=== PATIENT | male | born 1950 | race Caucasian/White ===

== ENCOUNTER 2017-11-05 15:25 | Inpatient (IN) | payer MEDICARE ==
[~2017-11-05] VITALS: Ht 175.3 cm; Wt 131.4 kg
[~2017-11-05 15:25] MED LIST: ATEN1TAB74 PO; ATRO0.06; BENZ1CAP34 PO; CIPR0.3S EACH EAR; FLUT50SP EACH NARE; GLUC10TA3 PO; HYDRO2.5%T TOP; LEVO.2 PO; LOSA100T PO; PRED20 PO; PROT40TA PO; TAMS0.4C67 PO
[2017-11-05 15:29] VITALS: BP 193/93; PULSE 82; RESP 16; TEMP 97.8; O2SAT 97
--- NOTE | 2017-11-05 16:19 | RADRPT ---
EXAM DATE/TIME: 11/05/2017 15:46 [facility] COMPARISON: No previous studies available for comparison. INDICATIONS : Chest pain, possible CVA. MEDICAL HISTORY : None. SURGICAL HISTORY : None. ENCOUNTER: Initial ACUITY: 1 day PAIN SCORE: 2/10 LOCATION: middle chest. FINDINGS: A single view of the chest demonstrates the lungs to be symmetrically aerated without evidence of mas s, infiltrate or effusion. The cardiomediastinal contours are unremarkable. Osseous structures are intact. CONCLUSION: No acute disease. Nabil Ellis MD FACR on November 05, 2017 at 16:17 Board Certified Radiologist. This report was verified electronically.
[2017-11-05 16:36] VITALS: BP 174/112; PULSE 76; RESP 18; O2SAT 97
[2017-11-05] MEDS ORDERED: CLON.5 PO (16:55)
[2017-11-05] MEDS ORDERED: INSU1INJ5 SQ (16:55)
[2017-11-05] MEDS ORDERED: ATEN1TAB73 PO (16:55)
[2017-11-05] MEDS ORDERED: LEVO175T2 PO (16:55)
[2017-11-05] MEDS ORDERED: TRAM50TA PO (16:55)
[2017-11-05] MEDS ORDERED: COZA100T PO (16:55)
--- NOTE | 2017-11-05 17:03 | PD ---
HPI . Strokelike symptoms Chief Complaint: Neuro Symptoms/ Deficits Time Seen by Provider: 16:43 Travel History International Travel<30 days: No Contact w/Intl Traveler<30days: No Traveled to known affect area: No History of Present Illness HPI This patient presents with a chief complaint of dysarthria and right-sided weakness. Onset was on awakening at 8 AM yesterday. He states that his symptoms are getting progressively worse. He was seen at an OSH at approximately 3 AM this morning. This would have been about 19 hours after the onset of symptoms. He states that he had a CT scan of the head that was negative. He states that the aspirin prior to his presentation to that facility. He states that they gave him a blood pressure medication. He eventually left there AMA. He did present to his primary care physician's office after leaving AMA and was found to be in atrial fibrillation. His primary care physician instructed him to come here for further evaluation, treatment and admission. This patient reports a history of atrial fibrillation. He states that he was successfully ablated and is no longer on an anticoagulant. PFSH Past Medical History Arthritis: Yes Asthma: No Atrial Fibrillation: Yes Autoimmune Disease: No Anxiety: Yes Cancer: Yes Cardiovascular Problems: Yes (A-fib) High Cholesterol: Yes Chest Pain: Yes COPD: No Cerebrovascular Accident: No Diabetes: Yes Patient Takes Glucophage: No Diminished Hearing: No Diverticulitis: Yes Endocrine: Yes (FATTY LIVER) Gastrointestinal Disorders: Yes (GERD) GERD: Yes Genitourinary: Yes (POLYPS, ) Headaches: No Hepatitis: No Hiatal Hernia: No Hypertension: Yes Immune Disorder: No Musculoskeletal: Yes (BILATERAL SHOULDER PAIN, ARTHRITIS) Neurologic: No Reproductive: Yes (ENLARGED PROSTATE) Respiratory: Yes (COPD) Radiation Therapy: Yes (THYROID) Seizures: No Sleep Apnea: Yes Thyroid Disease: Yes (GRAVES DISEASE) Past Surgical History Abdominal Surgery: Yes (BOWEL RESECTION) AICD: No Body Medical Devices: HARDWARE IN NECK Cardiac Surgery: Yes (ABLATION X 2) Endocrine Surgery: Yes Genitourinary Surgery: Yes Joint Replacement: No Neurologic Surgery: Yes (NECK FUSION C 3-4,DISCECTOMY L 6-7) Pacemaker: No Other Surgery: Yes (SINUSES) Social History Alcohol Use: Yes (2-3 GLASSES DAILY) Tobacco Use: No Substance Use: No Allergies-Medications (Allergen,Severity, Reaction): Coded Allergies: amlodipine (Unverified Allergy, Severe, COUGH, 11/05/17) benazepril (Unverified Allergy, Severe, PT ALLERGIC TO LOTREL, 11/05/17) doxycycline (Unverified Allergy, Severe, Hives, 11/05/17) lactose (Unverified Allergy, Severe, PT IS LACTOSE INTOLERANT, 11/05/17) minocycline (Unverified Allergy, Severe, Hives, 11/05/17) tigecycline (Unverified Allergy, Severe, Hives, 11/05/17) Reported Meds & Prescriptions Reported Meds & Active Scripts Active Reported Levothyroxine (Levothyroxine Sodium) 175 Mcg Tab 175 Mcg PO DAILY Klonopin (Clonazepam) 0.5 Mg Tab 0.5 Mg PO DAILY PRN Levemir Flextouch Pen Inj (Insulin Detemir) 300 unit/3 ML Pen 18 Units SQ BID Tenormin (Atenolol) 25 Mg Tab 25 Mg PO DAILY Cozaar (Losartan Potassium) 100 Mg Tab 100 Mg PO DAILY Tramadol (Tramadol HCl) 50 Mg Tab 50-100 Mg PO Q6H PRN Review of Systems Except as stated in HPI: all other systems reviewed are Neg Eyes: No: Blurred Vision HENT: No: Headaches Neurologic: Positive: Weakness, Focal Abnormalities, Slurred Speech Physical Exam Narrative GENERAL: Patient is awake and alert and does not appear to be in any distress. SKIN: warm/dry. Normal color. HEAD: Normocephalic. Atraumatic. EYES: Pupils equal and round. No scleral icterus. No injection or drainage. ENT: No nasal bleeding or discharge. Mucous membranes pink and moist. NECK: Trachea midline. Full range of motion without pain.. CARDIOVASCULAR: Irregular rhythm with a controlled rate. RESPIRATORY: No accessory muscle use. Clear to auscultation. Breath sounds equal bilaterally. GASTROINTESTINAL: Abdomen soft. Nontender. Bowel sounds present. Nondistended. MUSCULOSKELETAL: No obvious deformities. NEUROLOGICAL: Awake and alert. Oriented 3. No obvious cranial nerve deficits. Motor grossly within normal limits. Speech is difficult to understand. PSYCHIATRIC: Appropriate mood and affect; insight and judgment normal. Data Data Last Documented VS Vital Signs Date Time Temp Pulse Resp B/P (MAP) Pulse Ox O2 Delivery O2 Flow Rate FiO2 11/05/17 16:36 76 18 174/112 (132) 97 Room Air 11/05/17 15:29 97.8 Orders Orders Electrocardiogram (11/05/17 15:33) Prothrombin Time / Inr (Pt) (11/05/17 15:33) Act Partial Throm Time (Ptt) (11/05/17 15:33) Complete Blood Count With Diff (11/05/17 15:33) Comprehensive Metabolic Panel (11/05/17 15:33) Creatine Kinase (Cpk) (11/05/17 15:33) Troponin I (11/05/17 15:33) Urinalysis - C+S If Indicated (11/05/17 15:33) Ct Brain W/O Iv Contrast(Rout) (11/05/17 15:33) Chest, Single Ap (11/05/17 15:33) Consult Neurology (11/05/17 ) Urine Culture (11/05/17 16:35) Apixaban (Eliquis) (11/05/17 17:30) (Hub Use Only)Inp Phy Cons/Ref (11/05/17 ) Admit Order (Ed Use Only) (11/05/17 17:50) Labs Laboratory Tests Test 11/05/17 16:35 11/05/17 16:53 Urine Color YELLOW Urine Turbidity CLEAR Urine pH 5.5 Urine Specific [place] 1.018 Urine Protein 30 mg/dL Urine Glucose (UA) 1000 mg/dL Urine Ketones NEG mg/dL Urine Occult Blood NEG Urine Nitrite NEG Urine Bilirubin NEG Urine Urobilinogen LESS THAN 2.0 MG/DL Urine Leukocyte Esterase NEG Urine WBC 3 /hpf Urine Squamous Epithelial Cells 1 /hpf Urine Bacteria OCC /hpf Urine Hyaline Casts 1 /lpf Urine Mucus FEW /lpf Urine Sperm RARE Microscopic Urinalysis Comment CATH-CULTURE IND White Blood Count 7.3 TH/MM3 Red Blood Count 4.95 MIL/MM3 Hemoglobin 16.0 GM/DL Hematocrit 45.6 % Mean Corpuscular Volume 92.0 FL Mean Corpuscular Hemoglobin 32.3 PG Mean Corpuscular Hemoglobin Concent 35.1 % Red Cell Distribution Width 15.4 % Platelet Count 229 TH/MM3 Mean Platelet Volume 8.6 FL Neutrophils (%) (Auto) 76.2 % Lymphocytes (%) (Auto) 14.6 % Monocytes (%) (Auto) 6.9 % Eosinophils (%) (Auto) 1.8 % Basophils (%) (Auto) 0.5 % Neutrophils # (Auto) 5.6 TH/MM3 Lymphocytes # (Auto) 1.1 TH/MM3 Monocytes # (Auto) 0.5 TH/MM3 Eosinophils # (Auto) 0.1 TH/MM3 Basophils # (Auto) 0.0 TH/MM3 CBC Comment DIFF FINAL Differential Comment Prothrombin Time 10.3 SEC Prothromb Time International Ratio 1.0 RATIO Activated Partial Thromboplast Time 25.3 SEC Blood Urea Nitrogen 20 MG/DL Creatinine 1.54 MG/DL Random Glucose 254 MG/DL Total Protein 7.9 GM/DL Albumin 4.1 GM/DL Calcium Level 9.2 MG/DL Alkaline Phosphatase 125 U/L Aspartate Amino Transf (AST/SGOT) 27 U/L Alanine Aminotransferase (ALT/SGPT) 44 U/L Total Bilirubin 1.1 MG/DL Sodium Level 138 MEQ/L Potassium Level 3.9 MEQ/L Chloride Level 102 MEQ/L Carbon Dioxide Level 26.8 MEQ/L Anion Gap 9 MEQ/L Estimat Glomerular Filtration Rate 45 ML/MIN Total Creatine Kinase 147 U/L Troponin I LESS THAN 0.02 NG/ML MDM Medical Decision Making Medical Screen Exam Complete: Yes Emergency Medical Condition: Yes Medical Record Reviewed: Yes (medical history includes HTN, BPH, AF, hypothyroidism, MAGUI) Interpretation(s) EKG shows atrial fibrillation with a ventricular rate of 79. He has a right bundle-branch block. Differential Diagnosis Differential diagnosis includes but is not limited to TIA, CVA, brain tumor, migraine, anxiety Narrative Course This patient presents with strokelike symptoms. Onset was > 36 hours ago. He is in atrial fibrillation. He needs to be anticoagulated for his atrial fibrillation. I will order another CT here to rule out bleed in his head prior to initiating anticoagulation. CBC & BMP Diagram 11/05/17 16:53 Total Protein 7.9, Albumin 4.1, Calcium Level 9.2, Alkaline Phosphatase 125 H, Aspartate Amino Transf (AST/SGOT) 27, Alanine Aminotransferase (ALT/SGPT) 44, Total Bilirubin 1.1 H Coags are normal. Last Impressions Head CT 11/05/17 [id number] Signed Impressions: Service Date/Time: Sunday, November 05, 2017 16:47 - CONCLUSION: Moderate basalganglia calcifications, nonspecific Otherwise negative for acute process. Nabil Ellis MD FACR Chest X-Ray 11/05/17 1533 Signed Impressions: Service Date/Time: Sunday, November 05, 2017 15:46 - CONCLUSION: No acute disease. Nabil Ellis MD FACR I have received his records from the outside hospital. He was evaluated there 20 hours after the onset of his symptoms. Admission was recommended but refused. He subsequently signed out AMA and was instructed primary care physician, Dr. Bailey. Critical Care Narrative Aggregate critical care time was 45 minutes. Time to perform other separately billable procedures was not included in the critical care time. My time did not include minutes spent treating any other patients simultaneously or on activities that did not directly contribute to the patient's treatment. The services I provided to this patient were to treat and/or prevent clinically significant deterioration due to AF and stroke. I provided critical care services requiring my management, as noted below: Chart data review, documentation time, medication orders and management, vital sign assessments/reviewing monitor data, ordering and reviewing lab tests, ordering and interpreting/reviewing x-rays and diagnostic studies, care of the patient and discussion of the patient with the admitting physicians Physician Communication Physician Communication Dr. Ibanez recommended Eliquis for anticoagulation. This has been ordered. Dr. Whyte will admit for Dr. Feldman. Diagnosis Primary Impression: Stroke Qualified Codes: I63.9 - Cerebral infarction, unspecified Additional Impression: Atrial fibrillation Qualified Codes: I48.0 - Paroxysmal atrial fibrillation Admitting Information Admitting Physician Requests: Admit Condition: Stable Kajal Cardoso MD Nov 05, 2017 17:03
--- NOTE | 2017-11-05 17:18 | RADRPT ---
EXAM DATE/TIME: 11/05/2017 16:47 [facility] COMPARISON: No previous studies available for comparison. \ INDICATIONS : Right sided weakness for two days. RADIATION DOSE: 56.35 CTDIvol (mGy) MEDICAL HISTORY : Carcinoma, thyroid. Hypertension. diabetes, grave's disease SURGICAL HISTORY : None. ENCOUNTER: Initial ACUITY: 2 days PAIN SCALE: 2/10 LOCATION: Bilateral head TECHNIQUE: Multiple contiguous axial images were obtained of the head. Using automated exposure control and adj ustment of the mA and/or kV according to patient size, radiation dose was kept as low as reasonably a chievable to obtain optimal diagnostic quality images. DICOM format image data is available electro nically for review and comparison. FINDINGS: CEREBRUM: The ventricles are normal for age. No evidence of midline shift, mass lesion, hemorrhage or acute in farction. No extra-axial fluid collections are seen. Moderate basalganglia calcifications are evide nt. POSTERIOR FOSSA: The cerebellum and brainstem are intact. The 4th ventricle is midline. The cerebellopontine angle i s unremarkable. EXTRACRANIAL: The visualized portion of the orbits is intact. SKULL: The calvaria is intact. No evidence of skull fracture. CONCLUSION: Moderate basalganglia calcifications, nonspecific Otherwise negative for acute process. Nabil Ellis MD FACR on November 05, 2017 at 17:14 Board Certified Radiologist. This report was verified electronically.
[2017-11-05 17:26] LABS: AUTOMATED NEUTROPHIL # 5.6 TH/MM3 (1.8-7.7); BASOPHIL % 0.5 % (0.0-2.0); EOSINOPHIL # 0.1 TH/MM3 (0-0.4); EOSINOPHIL % 1.8 % (0.0-4.0); HEMATOCRIT 45.6 % (39.0-51.0); HEMO FLAGS DIFF FINAL; LYMPH % 14.6 % (9.0-44.0); LYMPHOCYTE # 1.1 TH/MM3 (1.0-4.8); MEAN CORPUSCULAR HEMOGLOBIN 32.3 PG (27.0-34.0); MEAN CORPUSCULAR HGB CONC 35.1 % (32.0-36.0); MONO % 6.9 % (0.0-8.0); NEUT % 76.2 % (16.0-70.0); PLATELET COUNT 229 TH/MM3 (150-450); RED BLOOD COUNT 4.95 MIL/MM3 (4.50-5.90); RED CELL DISTRIBUTION WIDTH 15.4 % (11.6-17.2); WHITE BLOOD COUNT 7.3 TH/MM3 (4.0-11.0)
[2017-11-05 17:29] LABS: BACTERIA, URINE OCC /hpf; BLOOD, URINE NEG (NEG); COMMENT (UR) CATH-CULTURE IND; CULTURE IF INDICATED CATH CULTURE IND; GLUCOSE,URINE 1000 mg/dL (NEG); HYALINE CAST, URINE 1 /lpf (RARE); KETONE, URINE NEG (NEG); MUCUS URINE FEW /lpf (OCC); NITRITE,URINE NEG (NEG); PH, URINE 5.5 (5.0-8.5); SQUAMOUS EPITHELIAL CELL URINE 1 /hpf (0-5); URINE COLOR YELLOW (YELLW/STRAW)
[2017-11-05 17:29] LABS: APTT (PATIENT) 25.3 SEC (24.3-30.1); PROTHROMBIN TIME - PATIENT 10.3 SEC (9.8-11.6)
[2017-11-05] MEDS ORDERED: APIXABAN 5 MG TABLET PO SCH (17:30)
[2017-11-05 17:34] LABS: ALT (GPT) 44 U/L (12-78); ANION GAP 9 MEQ/L (5-15); AST (GOT) 27 U/L (15-37); BICARBONATE 26.8 MEQ/L (21.0-32.0); BLOOD UREA NITROGEN 20 MG/DL (7-18); CHLORIDE 102 MEQ/L (98-107); GLOMERULAR FILTRATION RATE 45 ML/MIN (>89); POTASSIUM 3.9 MEQ/L (3.5-5.1); SODIUM (NA) 138 MEQ/L (136-145)
[2017-11-05 17:38] LABS: ALKALINE PHOSPHATASE 125 U/L (45-117); CREATINE KINASE 147 U/L (39-308); TOTAL BILIRUBIN ADULT 1.1 MG/DL (0.2-1.0)
[2017-11-05] MEDS: SODIUM CHLOR 0.9% 1000 ML INJ 1,000 ML IV SCH (18:48)
[2017-11-05] MEDS: APIXABAN 5 MG TABLET PO SCH (18:50)
[2017-11-05] MEDS ORDERED: GLUCAGON 1 MG/ML VIAL OTHER PRN (19:00)
[2017-11-05] MEDS ORDERED: LABETALOL HCL 100 MG/20 ML VIAL IV PUSH PRN (19:00)
[2017-11-05] MEDS ORDERED: DEXTROSE 50% IN WATER 50 ML VIAL(D50) IV PUSH PRN (19:00)
[2017-11-05] MEDS ORDERED: SODIUM CHLORIDE 0.9% FLUSH 10 ML FLUSH IV FLUSH PRN (19:00)
[2017-11-05] MEDS ORDERED: LORazepam 2 MG/ML VIAL IV PUSH ONE (20:30)
[2017-11-05 20:57] VITALS: BP 165/96; PULSE 74; RESP 18; TEMP 97.4; O2SAT 98
[2017-11-05] MEDS: INSULIN DETEMIR 100 UNITS/ML VIAL SQ SCH (21:00)
[2017-11-05] MEDS: INSULIN ASPART SUPPLEMENTAL SCALE SQ SCH (21:00)
--- NOTE | 2017-11-05 21:01 | HHI.HP ---
HPI Service [facility] Hospitalists Primary Care Physician Non-Staff Admission Diagnosis stroke, AF Chief Complaint: possible stroke, Afib Travel History International Travel<30 Days: No Contact w/Intl Traveler <30 Da: No Traveled to Known Affected Are: No History of Present Illness 67-year-old male with history of atrial fibrillation, diabetes, hypertension, hypothyroidism presents with a chief complaint of dysarthria and right-sided weakness. Onset was on awakening at 8 AM yesterday when he noted that he was having significant gait abnormality going to the bathroom. He reportedly stayed at home yesterday and rested but wasn't getting any better. He states that his symptoms are getting progressively worse so he went to another ER around 3 AM this morning. This would have been about 19 hours after the onset of symptoms. CT scan of the head that was negative. He states that he took aspirin prior to his presentation to that facility. He states that they gave him a blood pressure medication. He eventually left there AMA as they recommended he stay for further eval. He subsequently presented to his primary care physician's office after leaving AMA and was found to be in atrial fibrillation. His primary care physician instructed him to come here for further evaluation, treatment and admission. Patient reports he had chronic atrial fibrillation and underwent cardioversion 2 with the latter being successful. He reports he never had ablation. He reports that he stopped Eliquis in approximately January of this year even though the piece dye worker told him would be a good idea to stay on it" the rest of his life as a prophylactic. He states the titus of several hundred dollars a month was too much for him. Patient notes that he still has some right-sided weakness particularly of right lower extremity and he reports that his speech is somewhat slurred or him. Review of Systems Constitutional: DENIES: Diaphoretic episodes, Fatigue, Fever, Weight gain, Weight loss, Chills, Dizziness, Change in appetite, Night Sweats Endocrine: DENIES: Heat/cold intolerance, Polydipsia, Polyuria, Polyphagia Eyes: DENIES: Blurred vision, Diplopia, Eye inflammation, Eye pain, Vision loss , Photosensitivity, Double Vision Ears, nose, mouth, throat: DENIES: Tinnitus, Hearing loss, Vertigo, Nasal discharge, Oral lesions, Throat pain, Hoarseness, Ear Pain, Running Nose, Epistaxis, Sinus Pain, Toothache, Odynophagia Respiratory: DENIES: Apneas, Cough, Snoring, Wheezing, Hemoptysis, Sputum production, Shortness of breath Cardiovascular: COMPLAINS OF: Palpitations, DENIES: Chest pain, Syncope, Dyspnea on Exertion, PND, Lower Extremity Edema, Orthopnea, Claudication Gastrointestinal: DENIES: Abdominal pain, Black stools, Bloody stools, BRB per rectum, Constipation, Diarrhea, GERD, Nausea, Reflux, Vomiting, Difficulty Swallowing, Anorexia, See HPI Musculoskeletal: COMPLAINS OF: Joint pain, Back pain Hematologic/lymphatic: COMPLAINS OF: Bruising Neurologic: COMPLAINS OF: Abnormal gait, Localized weakness, Speech Problems, Poor Balance, DENIES: Headache, Paresthesias, Seizures, Tremor Psychiatric: COMPLAINS OF: Anxiety Past Family Social History Past Medical History Anxiety, atrial fibrillation BPH COPD Diabetic nephropathy Lumbar degenerative disc disease GERD Hypertension Hyperlipidemia Hypothyroidism Obesity Postlaminectomy syndrome Psoriasis History of SVT Past Surgical History Colonic resection in 2008 for diverticulitis and colitis Incisional hernia repair Anterior cervical fusion Paravertebral nerve block Lumbar Spinal discectomy Last colonoscopy November 2014 revealed some signs of possible colitis and low- grade adenomatous polyp Reported Medications Levothyroxine (Levothyroxine Sodium) 175 Mcg Tab 175 Mcg PO DAILY Klonopin (Clonazepam) 0.5 Mg Tab 0.5 Mg PO DAILY PRN Levemir Flextouch Pen Inj (Insulin Detemir) 300 unit/3 ML Pen 18 Units SQ BID Tenormin (Atenolol) 25 Mg Tab 25 Mg PO DAILY Cozaar (Losartan Potassium) 100 Mg Tab 100 Mg PO DAILY Tramadol (Tramadol HCl) 50 Mg Tab 50-100 Mg PO Q6H PRN Ventolin inhaler 1 puff every 4 hours as needed Allergies: Coded Allergies: amlodipine (Unverified Allergy, Severe, COUGH, 11/05/17) benazepril (Unverified Allergy, Severe, PT ALLERGIC TO LOTREL, 11/05/17) doxycycline (Unverified Allergy, Severe, Hives, 11/05/17) lactose (Unverified Allergy, Severe, PT IS LACTOSE INTOLERANT, 11/05/17) minocycline (Unverified Allergy, Severe, Hives, 11/05/17) tigecycline (Unverified Allergy, Severe, Hives, 11/05/17) Family History Sister had some form of brain cancer Mother in her 80s of dementia but apparently had history of kidney cancer Father in his 80s and had apparently some dementia, possibly history of stroke but is unsure. 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 Speech is somewhat slurred but quite comprehensible. Alert and oriented. SKIN: No rashes, ecchymoses or lesions. Cool and dry. HEAD: Atraumatic. Normocephalic. No temporal or scalp tenderness. EYES: Pupils equal round and reactive. Extraocular motions intact. No scleral icterus. No injection or drainage. ENT: Nose without bleeding, purulent drainage or septal hematoma. Airway patent. NECK: Trachea midline. No JVD or lymphadenopathy. Supple, nontender, no meningeal signs. CARDIOVASCULAR: Irregularly irregular without murmurs, gallops, or rubs. RESPIRATORY: Clear to auscultation. Breath sounds equal bilaterally. No wheezes , rales, or rhonchi. GASTROINTESTINAL: Abdomen soft, non-tender, nondistended. No hepato-splenomegaly , or palpable masses. No guarding. MUSCULOSKELETAL: Extremities without clubbing, cyanosis, or edema. No joint tenderness, effusion, or edema noted. No calf tenderness. Paralumbar spasm noted. NEUROLOGICAL: Awake and alert. Cranial nerves II through XII intact. Speech somewhat slurred as noted above. It is noted that patient is left-hand dominant. 5 out of 5 strength left extremities. Right lower extremity with 4.5 out of 5 strength on flexion 5 over 5 on extension. Right upper extremity 4.5 out of 5 strength proximally. Pearl Technician 5 out of 5 bilaterally Laboratory Laboratory Tests Test 11/05/17 16:35 11/05/17 16:53 Urine Color YELLOW Urine Turbidity CLEAR Urine pH 5.5 Urine Specific [place] 1.018 Urine Protein 30 Urine Glucose (UA) 1000 Urine Ketones NEG Urine Occult Blood NEG Urine Nitrite NEG Urine Bilirubin NEG Urine Urobilinogen LESS THAN 2.0 Urine Leukocyte Esterase NEG Urine WBC 3 Urine Squamous Epithelial Cells 1 Urine Bacteria OCC Urine Hyaline Casts 1 Urine Mucus FEW Urine Sperm RARE Microscopic Urinalysis Comment CATH-CULTURE IND White Blood Count 7.3 Red Blood Count 4.95 Hemoglobin 16.0 Hematocrit 45.6 Mean Corpuscular Volume 92.0 Mean Corpuscular Hemoglobin 32.3 Mean Corpuscular Hemoglobin Concent 35.1 Red Cell Distribution Width 15.4 Platelet Count 229 Mean Platelet Volume 8.6 Neutrophils (%) (Auto) 76.2 Lymphocytes (%) (Auto) 14.6 Monocytes (%) (Auto) 6.9 Eosinophils (%) (Auto) 1.8 Basophils (%) (Auto) 0.5 Neutrophils # (Auto) 5.6 Lymphocytes # (Auto) 1.1 Monocytes # (Auto) 0.5 Eosinophils # (Auto) 0.1 Basophils # (Auto) 0.0 CBC Comment DIFF FINAL Differential Comment Prothrombin Time 10.3 Prothromb Time International Ratio 1.0 Activated Partial Thromboplast Time 25.3 Blood Urea Nitrogen 20 Creatinine 1.54 Random Glucose 254 Total Protein 7.9 Albumin 4.1 Calcium Level 9.2 Alkaline Phosphatase 125 Aspartate Amino Transf (AST/SGOT) 27 Alanine Aminotransferase (ALT/SGPT) 44 Total Bilirubin 1.1 Sodium Level 138 Potassium Level 3.9 Chloride Level 102 Carbon Dioxide Level 26.8 Anion Gap 9 Estimat Glomerular Filtration Rate 45 Total Creatine Kinase 147 Troponin I LESS THAN 0.02 Date/Time Source Procedure Growth Status 11/05/17 16:35 Urine Clean Catch Urine Culture Pending Received Result Diagram: 11/05/17 1653 11/05/17 1653 Imaging Last [address] 11/05/17 1533 Signed Impressions: Service Date/Time: Sunday, November 05, 2017 16:47 - CONCLUSION: Moderate basalganglia calcifications, nonspecific Otherwise negative for acute process. Nabil Ellis MD FACR Chest X-Ray 11/05/17 1533 Signed Impressions: Service Date/Time: Sunday, November 05, 2017 15:46 - CONCLUSION: No acute disease. Nabil Ellis MD FACR Caprini VTE Risk Assessment Caprini VTE Risk Assessment: Mod/High Risk (score >= 2) Caprini Risk Assessment Model Point Value = 1 Point Value = 2 Point Value = 3 Point Value = 5 Age 41-60 Minor surgery BMI > 25 kg/m2 Swollen legs Varicose veins or History of unexplained or recurrent spontaneous Oral contraceptives or hormone replacement Sepsis (< 1 month) Serious lung disease, including pneumonia (< 1 month) Abnormal pulmonary function Acute myocardial infarction Congestive heart failure (< 1 month) History of inflammatory bowel disease Medical patient at bed rest Age 61-74 Arthroscopic surgery Major open surgery (> 45 min) Laparoscopic surgery (> 45 min) Malignancy Confined to bed (> 72 hours) Immobilizing plaster cast Central venous access Age >= 75 History of VTE Family history of VTE Factor V Leiden Prothrombin [id number] Lupus anticoagulant Anticardiolipin antibodies Elevated serum homocysteine Heparin-induced thrombocytopenia Other congenital or acquired thrombophilia Stroke (< 1 month) Elective arthroplasty Hip, pelvis, or leg fracture Acute spinal cord injury (< 1 month) Prophylaxis Regimen Total Risk Factor Score Risk Level Prophylaxis Regimen 0-1 Low Early ambulation 2 Moderate Order ONE of the following: *Sequential Compression Device (SCD) *Heparin 5000 units SQ BID 3-4 Higher Order ONE of the following medications: *Heparin 5000 units SQ TID *Enoxaparin/Lovenox 40 mg SQ daily (WT < 150 kg, CrCl > 30 mL/min) *Enoxaparin/Lovenox 30 mg SQ daily (WT < 150 kg, CrCl > 10-29 mL/min) *Enoxaparin/Lovenox 30 mg SQ BID (WT < 150 kg, CrCl > 30 mL/min) AND/OR *Sequential Compression Device (SCD) 5 or more Highest Order ONE of the following medications: *Heparin 5000 units SQ TID (Preferred with Epidurals) *Enoxaparin/Lovenox 40 mg SQ daily (WT < 150 kg, CrCl > 30 mL/min) *Enoxaparin/Lovenox 30 mg SQ daily (WT < 150 kg, CrCl > 10-29 mL/min) *Enoxaparin/Lovenox 30 mg SQ BID (WT < 150 kg, CrCl > 30 mL/min) AND *Sequential Compression Device (SCD) Assessment and Plan Problem List: (1) Stroke ICD Codes: I63.9 - Cerebral infarction, unspecified Status: Acute Plan: Likely left MCA stroke. Patient has risk of A. fib and had stopped his anticoagulant. Eliquis has been resumed. neurology has been consult. Other imaging and workup pending. Will need some sedation prior to MRI. (2) Atrial fibrillation ICD Codes: I48.91 - Unspecified atrial fibrillation Status: Acute Plan: As above. Rate controlled. Eliquis resumed. (3) Diabetic nephropathy ICD Codes: E11.21 - Type 2 diabetes mellitus with diabetic nephropathy Plan: Has not been exactly to goal. A1c was 8.3 a few months ago. Repeat A1c. Place on sliding scale insulin. We'll provide some basal insulin as well. (4) Hypertension ICD Codes: I10 - Essential (primary) hypertension Plan: Permissive hypertension will be allowed initially with parameters. (5) Postlaminectomy syndrome ICD Codes: M96.1 - Postlaminectomy syndrome, not elsewhere classified Plan: Continue home medication (6) Hypothyroidism ICD Codes: E03.9 - Hypothyroidism, unspecified Status: Chronic Plan: Continue medication (7) Hyperlipidemia ICD Codes: E78.5 - Hyperlipidemia, unspecified Status: Chronic Plan: Would benefit from statin (8) Anxiety ICD Codes: F41.9 - Anxiety disorder, unspecified Status: Chronic Plan: Continue home medication Code Status full Discussed Condition With Patient, his nurse and ER provider Problem Qualifiers (1) Stroke: Qualified Codes: I63.9 - Cerebral infarction, unspecified (2) Atrial fibrillation: Qualified Codes: I48.0 - Paroxysmal atrial fibrillation (3) Diabetic nephropathy: Qualified Codes: E11.21 - Type 2 diabetes mellitus with diabetic nephropathy (4) Hypertension: Qualified Codes: I10 - Essential (primary) hypertension (5) Hyperlipidemia: Qualified Codes: E78.00 - Pure hypercholesterolemia, unspecified Selvin Whyte MD PhD Nov 05, 2017 21:01
--- NOTE | 2017-11-05 21:25 | MB ---
cc: PEACE RIBERA M.D. DATE OF CONSULTATION 11/05/2017 REASON FOR CONSULTATION Stroke. HISTORY OF PRESENT ILLNESS Mr. Guerrero is a very nice 67-year-old man who has a history of atrial fibrillation which he was cardioverted out of about a year ago. He was in his sinus rhythm in the past, was on Eliquis but now off Eliquis because he has been in sinus rhythm. Yesterday developed acute onset of difficulty balance and slurred speech and right-sided weakness. His symptoms persisted. He came to the ER today. He has persistent symptoms. He was found to be back in atrial fibrillation. PAST MEDICAL HISTORY 1. History of stroke in the past. History of atrial fibrillation, cardioverted about a year ago. 2. Arthritis. 3. Hypercholesterolemia. 4. Fatty liver. 5. Gastroesophageal reflux disease. 6. Prostatic enlargement. 7. Shoulder pain. 8. Thyroid radiation therapy. 9. History of Grave's disease. 10. Cardiac cardioversion. 11. Cervical diskectomy. 12. Diabetes. ALLERGIES TO AMLODIPINE, BENAZEPRIL, DOXYCYCLINE, LACTOSE, MINOCYCLINE, TIGECYCLINE. MEDICATIONS At home: 1. Levothyroxine. 2. Klonopin. 3. Levemir. 4. Insulin. 5. Tenormin. 6. Cozaar. 7. Tramadol. cyclin medicines at home Levophed arrived and Klonopin Levemir insulin Tenormin Cozaar tramadol. The NEUROLOGIC EXAMINATION VITAL SIGNS: Blood pressure is 174/112, pulse is 76, respirations 18, temperature 97 degrees. Higher cortical functionss, he is alert, oriented. Speech is fluent at this time. Cranial nerves are normal. Motor exam he has got 4/5 strength in the right arm and right leg with normal strength on the left. Reflexes are symmetric. IMAGING CT of the brain no acute change. He has got basal ganglia calcification LABORATORY DATA White count is 7200. Hemoglobin 16, hematocrit 45.6%, platelet count 229,000. PT 10.3, INR 1.0, APTT 25.3. Sodium is 138, potassium 3.9, chloride 102, CO2 27. The BUN is 20, creatinine 1.54. GFR is 45. Glucose 254. Calcium 9.2, AST 27, ALT 44, alk phos 125. PT 10.3, INR 1.0, APTT 25.3. Telemetry is atrial fibrillation. IMPRESSION Probable recurrent stroke probably cardioembolic. RECOMMENDATIONS Recommend starting him back on Eliquis. I did suggest an MRI of the brain but he refuses an MRI stating he is extremely claustrophobic. Consider repeating the CT in [id number] days to further evaluate for stroke. We will also obtain echocardiogram, carotid ultrasound and lipid panel. Recommend physical therapy consultation as well. MD SARA Fuentes/KK /6:46 PM /9:07 PM
[2017-11-05 22:17] LABS: HEMOGLOBIN A1b 2.6 %; HEMOGLOBIN Ao 78.4 %; HEMOGLOBIN LA1C 3.7 %; HEMOGLOBIN P3 5.2 %
[2017-11-05] MEDS: SODIUM CHLORIDE 0.9% FLUSH 10 ML FLUSH IV FLUSH SCH (22:34)
[2017-11-05 23:00] VITALS: PULSE 94
--- NOTE | 2017-11-05 23:08 | RADRPT ---
EXAM DATE/TIME: 11/05/2017 21:12 [facility] COMPARISON: No previous studies available for comparison. INDICATIONS : Cerebrovascular accident. MEDICAL HISTORY : Hypercholesterolemia. Gastroesophageal reflux disease. Hypertension. Graves disease. Bilateral catara cts. Afib. COPD. Sleep apnea. Diverticulitis. BPH. Arthritis. Diabetes. Fatty liver disease. Anxiety. Cancer. Thyroid radiation therapy. Measles. SURGICAL HISTORY : Fusion, cervical. Discectomy, lumbar. Cardiac ablation x 2. Bowel resection. Sinus surgery. ENCOUNTER: Initial ACUITY: 1 day PAIN SCORE: 2/10 LOCATION: Bilateral neck PEAK SYSTOLIC VELOCITIES (cm/sec): ICA/CCA RATIO: Right: 1.4 Left: 1.9 ICA: Right: 105.9 Left: 146.9 CCA: Right: 75.3 Left: 76.0 ECA: Right: 73.3 Left: 109.2 VERTEBRAL: Right: 68.8 antegrade Left: 43.3 antegrade Elevated flow velocities and ICA/CCA ratios have been found to correlate with increased degrees of vessel stenosis, calculated as percentage of diameter relative to a normal segment of distal ICA/CCA FINDINGS: RIGHT CAROTID: No significant stenosis is visualized. The waveforms are within normal limits. LEFT CAROTID: No significant stenosis is visualized. The waveforms are within normal limits. VERTEBRAL ARTERIES: Antegrade flow is seen in both vertebral arteries. MISCELLANEOUS: None. CONCLUSION: 1. Mild plaque formation in the left internal carotid artery with hemodynamic profile on both sides c haracteristic of less than 50% stenosis. Aston Loza MD on November 05, 2017 at 23:05 Board Certified Radiologist. This report was verified electronically.
[2017-11-06] VITALS (10 sets, daily range): BP systolic 156–173; BP diastolic 84–108; PULSE 71–89; RESP 18–20; TEMP 97.2–98; O2SAT 95–97
[2017-11-06] MEDS: traMADol HCL 50 MG TAB PO PRN ×2 (00:44→16:47)
[2017-11-06] MEDS: APIXABAN 5 MG TABLET PO SCH ×2 (06:00→16:48)
[2017-11-06] MEDS: LEVOTHYROXINE SODIUM 100 MCG TAB PO SCH (07:08)
[2017-11-06] MEDS: LEVOTHYROXINE SODIUM 75 MCG TAB PO SCH (07:08)
[2017-11-06] MEDS: INSULIN ASPART SUPPLEMENTAL SCALE SQ SCH ×4 (08:40→21:09)
[2017-11-06] MEDS: INSULIN DETEMIR 100 UNITS/ML VIAL SQ SCH ×2 (08:41→21:09)
[2017-11-06] MEDS: SODIUM CHLORIDE 0.9% FLUSH 10 ML FLUSH IV FLUSH SCH ×2 (08:43→20:53)
[2017-11-06] MEDS: ATORVASTATIN 10 MG TAB PO SCH (08:43)
[2017-11-06 08:44] LABS: HDL CHOLESTEROL 51.8 MG/DL (40.0-60.0)
[2017-11-06] MEDS: SODIUM CHLOR 0.9% 1000 ML INJ 1,000 ML IV SCH ×2 (09:06→20:53)
--- NOTE | 2017-11-06 12:48 | EKG ---
Date Performed: 11/05/2017 Time Performed: 17:13:47 PTAGE: 67 years EKG: ATRIAL FIBRILLATION RIGHT BUNDLE BRANCH BLOCK MODERATE T-WAVE ABNORMALITY, CONSIDER ANTEROL ATERAL ISCHEMIA MODERATE T-WAVE ABNORMALITY, CONSIDER INFERIOR ISCHEMIA ABNORMAL ECG PREVIOUS TRACING : 02/16/2016 08.42 Since previous tracing, no significant change noted DOCTOR: Rajeev Carroll Interpretating Date/Time 11/06/2017 12:46:52
--- NOTE | 2017-11-06 14:41 | HHI.PR ---
Subjective Remarks Pt complains of continued weakness in the RLE and RUE Speech is improving Pt refusing MRI due to severe claustrophobia He has had to have Versed for sedation in the past in order to tolerate getting the MRI Objective Vitals Vital Signs Date Time Temp Pulse Resp B/P (MAP) Pulse Ox O2 Delivery O2 Flow Rate FiO2 11/06/17 13:20 97 21 11/06/17 12:38 97.2 85 20 156/102 (120) 97 11/06/17 08:57 71 11/06/17 08:25 97.4 77 20 169/108 (128) 95 11/06/17 05:01 11/06/17 04:37 97.5 84 18 169/91 (117) 97 11/06/17 00:57 98.0 84 18 169/84 (112) 96 11/05/17 23:00 94 11/05/17 20:57 97.4 74 18 165/96 (119) 98 11/05/17 16:36 76 18 174/112 (132) 97 Room Air 11/05/17 16:36 76 18 97 11/05/17 15:29 97.8 82 16 193/93 (126) 97 Result Diagram: 11/05/17 1653 11/05/17 1653 Other Results Laboratory Tests Test 11/05/17 16:35 11/05/17 16:53 11/06/17 08:01 Urine Color YELLOW Urine Turbidity CLEAR Urine pH 5.5 Urine Specific [place] 1.018 Urine Protein 30 mg/dL Urine Glucose (UA) 1000 mg/dL Urine Ketones NEG mg/dL Urine Occult Blood NEG Urine Nitrite NEG Urine Bilirubin NEG Urine Urobilinogen LESS THAN 2.0 MG/DL Urine Leukocyte Esterase NEG Urine WBC 3 /hpf Urine Squamous Epithelial Cells 1 /hpf Urine Bacteria OCC /hpf Urine Hyaline Casts 1 /lpf Urine Mucus FEW /lpf Urine Sperm RARE Microscopic Urinalysis Comment CATH-CULTURE IND White Blood Count 7.3 TH/MM3 Red Blood Count 4.95 MIL/MM3 Hemoglobin 16.0 GM/DL Hematocrit 45.6 % Mean Corpuscular Volume 92.0 FL Mean Corpuscular Hemoglobin 32.3 PG Mean Corpuscular Hemoglobin Concent 35.1 % Red Cell Distribution Width 15.4 % Platelet Count 229 TH/MM3 Mean Platelet Volume 8.6 FL Neutrophils (%) (Auto) 76.2 % Lymphocytes (%) (Auto) 14.6 % Monocytes (%) (Auto) 6.9 % Eosinophils (%) (Auto) 1.8 % Basophils (%) (Auto) 0.5 % Neutrophils # (Auto) 5.6 TH/MM3 Lymphocytes # (Auto) 1.1 TH/MM3 Monocytes # (Auto) 0.5 TH/MM3 Eosinophils # (Auto) 0.1 TH/MM3 Basophils # (Auto) 0.0 TH/MM3 CBC Comment DIFF FINAL Differential Comment Prothrombin Time 10.3 SEC Prothromb Time International Ratio 1.0 RATIO Activated Partial Thromboplast Time 25.3 SEC Blood Urea Nitrogen 20 MG/DL Creatinine 1.54 MG/DL Random Glucose 254 MG/DL Total Protein 7.9 GM/DL Albumin 4.1 GM/DL Calcium Level 9.2 MG/DL Alkaline Phosphatase 125 U/L Aspartate Amino Transf (AST/SGOT) 27 U/L Alanine Aminotransferase (ALT/SGPT) 44 U/L Total Bilirubin 1.1 MG/DL Sodium Level 138 MEQ/L Potassium Level 3.9 MEQ/L Chloride Level 102 MEQ/L Carbon Dioxide Level 26.8 MEQ/L Anion Gap 9 MEQ/L Estimat Glomerular Filtration Rate 45 ML/MIN Hemoglobin A1c 8.5 % Total Creatine Kinase 147 U/L Troponin I LESS THAN 0.02 NG/ML Triglycerides Level 124 MG/DL Cholesterol Level 174 MG/DL LDL Cholesterol 97 MG/DL HDL Cholesterol 51.8 MG/DL Cholesterol/HDL Ratio 3.35 RATIO Thyroid Stimulating Hormone 3rd Gen 0.479 uIU/ML Imaging Last Impressions Head CT 11/05/17 1533 Signed Impressions: Service Date/Time: Sunday, November 05, 2017 16:47 - CONCLUSION: Moderate basalganglia calcifications, nonspecific Otherwise negative for acute process. Nabil Ellis MD FACR Chest X-Ray 11/05/17 1533 Signed Impressions: Service Date/Time: Sunday, November 05, 2017 15:46 - CONCLUSION: No acute disease. Nabil Ellis MD FACR Carotid Artery Ultrasound 11/05/17 0000 Signed Impressions: Service Date/Time: Sunday, November 05, 2017 21:12 - CONCLUSION: 1. Mild plaque formation in the left internal carotid artery with hemodynamic profile on both sides characteristic of less than 50%% stenosis. Aston Loza MD Objective Remarks General: NAD, AAOx3 Chest: CTA Cardiac: Regular Abd: +BS, soft ND/NT Ext: ETIENNE without difficulty Neuro: RLE weakness, no slurred speech A/P Problem List: (1) Stroke ICD Codes: I63.9 - Cerebral infarction, unspecified Status: Acute Plan: - Pt is a 67 y/o WM with atrial fibrillation s/p cardioversion x 2, diabetes, hypertension, hypothyroidism presents with a chief complaint of dysarthria and right-sided weakness. - Pt presented to another the ED on 11/04/17 after he woke up that morning with significant right sided weakness, gait instability, and slurred speech. This progressively worse so he went to another ER around 3 AM on 11/05. This would have been about 19 hours after the onset of symptoms. CT scan of the head that was negative. He states that he took aspirin prior to his presentation to that facility. He states that they gave him a blood pressure medication. He eventually left there [place] as they recommended he stay for further eval. He subsequently presented to his primary care physician 's office after leaving AM and was found to be in atrial fibrillation. His PCP instructed him to come to the ED at [facility] [place] further evaluation, treatment and admission. - He has hx of chronic atrial fibrillation and underwent cardioversion 2 with the latter being successful. He reports he never had ablation. He reports that he stopped Eliquis in approximately January 2017 even though the museum service scheduler told him would be a good idea to stay on it the rest of his life as a prophylactic. Secondary to cost he stopped the Eliquis. - Pt noted to be in A. fib in the ED here. - Head CT (11/05) --> Moderate basalganglia calcifications, nonspecific Otherwise negative for acute process. - Neurology was consulted. - Carotid US (11/05) --> Mild plaque formation in the left internal carotid artery with hemodynamic profile on both sides characteristic of less than 50% stenosis - Its felt that the pt likely had a left MCA stroke. Patient has risk with his A. fib and having stopped his anticoagulant. - Eliquis has been resumed. - Patient notes that he still has some right-sided weakness particularly of right lower extremity - PT/ST evaluation - Permissive HTN - Pt has refused MRI, states that he has had to be sedated with Versed in the past to have an MRI - Pt is refusing Lipitor - Telemetry - 2D echo is ordered (2) Atrial fibrillation ICD Codes: I48.91 - Unspecified atrial fibrillation Status: Acute Plan: - As above. - Rate controlled. - Eliquis resumed. (3) Diabetic nephropathy ICD Codes: E11.21 - Type 2 diabetes mellitus with diabetic nephropathy Plan: - Hgb A1c 8.5% - NovoLog sliding scale insulin. - Levemir 10 units Q12H - Accu checks (4) Hypertension ICD Codes: I10 - Essential (primary) hypertension Plan: - Pt currently being allowed permissive hypertension with parameters. (5) Postlaminectomy syndrome ICD Codes: M96.1 - Postlaminectomy syndrome, not elsewhere classified Plan: - Continue home medication (6) Hypothyroidism ICD Codes: E03.9 - Hypothyroidism, unspecified Status: Chronic Plan: - Continue medication (7) Hyperlipidemia ICD Codes: E78.5 - Hyperlipidemia, unspecified Status: Chronic Plan: - Pt refusing statin (8) Anxiety ICD Codes: F41.9 - Anxiety disorder, unspecified Status: Chronic Plan: - Continue home medication Assessment and Plan Patient examined. Assessment and plan formulated with Za Bautista PA-C. I agree with the above. Problem Qualifiers (1) Stroke: Qualified Codes: I63.9 - Cerebral infarction, unspecified (2) Atrial fibrillation: Qualified Codes: I48.0 - Paroxysmal atrial fibrillation (3) Diabetic nephropathy: Qualified Codes: E11.21 - Type 2 diabetes mellitus with diabetic nephropathy (4) Hypertension: Qualified Codes: I10 - Essential (primary) hypertension (5) Hyperlipidemia: Qualified Codes: E78.00 - Pure hypercholesterolemia, unspecified Za Bautista Nov 06, 2017 14:41 Santy Feldman DO Nov 07, 2017 13:56
--- NOTE | 2017-11-06 16:41 | ECHRPT ---
Indication: Transient cerebral ischemic attack, unspecified CONCLUSIONS In limited views, the left ventricular systolic function is normal with an estimated ejection fracti on in the range of 55-60%. Mild concentric left ventricular hypertrophy. BP: 193 / 93 HR: 94 Rhythm: MEASUREMENTS (Male / Female) Normal Values Technical Quality:Good 2D ECHO LV Diastolic Diameter PLAX 4.3 cm 4.2 - 5.9 / 3.9 - 5.3 cm LV Systolic Diameter PLAX 3.1 cm IVS Diastolic Thickness 1.5 cm 0.6 - 1.0 / 0.6 - 0.9 cm LVPW Diastolic Thickness 1.4 cm 0.6 - 1.0 / 0.6 - 0.9 cm LV Relative Wall Thickness 0.7 RV Internal Dim ED PLAX 2.4 cm M-MODE Aortic Root Diameter MM 3.5 cm LA Systolic Diameter MM 2.8 cm LA Ao Ratio MM 0.8 AV Cusp Separation MM 1.7 cm DOPPLER Mitral E Point Velocity 110.0 cm/s Mitral A Point Velocity 55.7 cm/s Mitral E to A Ratio 2.0 FINDINGS LEFT VENTRICLE In limited views, the left ventricular systolic function is normal with an estimated ejection fracti on in the range of 55-60%. Normal left ventricular size. Mild concentric left ventricular hypertrophy. RIGHT VENTRICLE Normal right ventricular size and systolic function. LEFT ATRIUM The left atrial size is upper limits of normal. RIGHT ATRIUM The right atrial size is normal. ATRIAL SEPTUM Normal atrial septal thickness. AORTA The aortic root and proximal ascending aorta are not well visualized. MITRAL VALVE Grossly normal mitral valve. No mitral valve regurgitation. No mitral valve stenosis. AORTIC VALVE The aortic valve is not well visualized. TRICUSPID VALVE Grossly normal tricuspid valve. No tricuspid regurgitation. No tricuspid valve stenosis. PULMONARY VALVE The pulmonary valve is not well visualized. VESSELS The inferior vena cava is normal in size. PERICARDIUM No pericardial effusion. Willy Davis DO (Electronically Signed) Final Date:06 November 2017 16:40
--- NOTE | 2017-11-06 23:04 | HHI.PR ---
Review/Management Diagnosis left hemisphere cva recurrent afib. Plan continue eliquis PT/OT Diagnosis/Plan: Subjective Subjective Comments No acute events reported No headache He notices persistent weakness rue and rle and slurred speech without change Active Medications Current Medications Medications (Trade) Dose Ordered Sig/Alin Route Start Time Stop Time Status Last Admin (Eliquis) 5 mg BID@0600,1800 PO 11/05/17 18:05 11/06/17 16:48 (NS Flush) 2 ml BID IV FLUSH 11/05/17 21:00 11/06/17 20:53 (NS Flush) 2 ml UNSCH PRN IV FLUSH 11/05/17 19:00 Sodium Chloride 1,000 ml @ 70 mls/hr [id number] IV 11/05/17 18:48 (Trandate Inj) 10 mg Q2H PRN IV PUSH 11/05/17 19:00 (NovoLOG SUPPLEMENTAL SCALE) 1 ACHS SQ 11/05/17 21:00 11/06/17 21:09 (D50w (Vial) Inj) 50 ml UNSCH PRN IV PUSH 11/05/17 19:00 (Glucagon Inj) 1 mg UNSCH PRN OTHER 11/05/17 19:00 (Levemir Inj) 10 units Q12HR SQ 11/05/17 21:00 11/06/17 21:09 (Lipitor) 10 mg DAILY PO 11/06/17 09:00 (KlonoPIN) 0.5 mg DAILY PRN PO 11/05/17 21:15 (Ultram) 100 mg Q6H PRN PO 11/05/17 21:15 11/06/17 16:47 (Synthroid) 100 mcg DAILY@0600 PO 11/06/17 06:00 11/06/17 07:08 (Synthroid) 75 mcg DAILY@0600 PO 11/06/17 06:00 11/06/17 07:08 Allergies Allergies Coded Allergies amlodipine (Unverified Allergy, Severe, COUGH, 11/05/17) benazepril (Unverified Allergy, Severe, PT ALLERGIC TO LOTREL, 11/05/17) doxycycline (Unverified Allergy, Severe, Hives, 11/05/17) minocycline (Unverified Allergy, Severe, Hives, 11/05/17) tigecycline (Unverified Allergy, Severe, Hives, 11/05/17) Exam I&O / VS 11/06/17 11/06/17 11/07/17 15:00 23:00 07:00 Intake Total 480 ml Balance 480 ml Intake Oral 480 ml # Voids 3 1 Vital Signs Date Time Temp Pulse Resp B/P (MAP) Pulse Ox O2 Delivery O2 Flow Rate FiO2 11/06/17 21:48 97.7 89 18 165/97 (119) 96 11/06/17 16:00 97.6 83 20 173/98 (123) 97 11/06/17 13:20 97 21 11/06/17 12:38 97.2 85 20 156/102 (120) 97 11/06/17 12:00 79 11/06/17 08:57 71 11/06/17 08:25 97.4 77 20 169/108 (128) 95 11/06/17 05:01 11/06/17 04:37 97.5 84 18 169/91 (117) 97 11/06/17 00:57 98.0 84 18 169/84 (112) 96 Exam Comments alert, speech is dysarthric CN intact MOTOR 4/5 RUE and RLE. 5/5 LUE and LLE Objective Radiology Results carotid us--no significant stenosis Micro and Labs Laboratory Tests Test 11/06/17 08:01 Triglycerides Level 124 Cholesterol Level 174 LDL Cholesterol 97 HDL Cholesterol 51.8 Cholesterol/HDL Ratio 3.35 Thyroid Stimulating Hormone 3rd Gen 0.479 Date/Time Source Procedure Growth Status 11/05/17 16:35 Urine Clean Catch Urine Culture - Preliminary NO GROWTH IN 24 HOURS. Resulted Allen Ibanez PhD Nov 06, 2017 23:04
[2017-11-07] VITALS (10 sets, daily range): BP systolic 142–170; BP diastolic 92–105; PULSE 61–88; RESP 17–18; TEMP 97.5–98.2; O2SAT 95–98
[2017-11-07] MEDS: traMADol HCL 50 MG TAB PO PRN ×2 (00:28→20:11)
[2017-11-07] MEDS: clonazePAM 0.5 MG TAB PO PRN ×2 (00:37→16:35)
[2017-11-07] MEDS: LEVOTHYROXINE SODIUM 100 MCG TAB PO SCH (06:12)
[2017-11-07] MEDS: LEVOTHYROXINE SODIUM 75 MCG TAB PO SCH (06:12)
[2017-11-07] MEDS: APIXABAN 5 MG TABLET PO SCH ×2 (06:14→21:40)
[2017-11-07] MEDS: ATORVASTATIN 10 MG TAB PO SCH (09:00)
[2017-11-07] MEDS: SODIUM CHLORIDE 0.9% FLUSH 10 ML FLUSH IV FLUSH SCH ×2 (09:00→21:42)
[2017-11-07 10:02] LABS: BICARBONATE 24.8 MEQ/L (21.0-32.0); POTASSIUM 4.1 MEQ/L (3.5-5.1)
[2017-11-07] MEDS: INSULIN ASPART SUPPLEMENTAL SCALE SQ SCH ×4 (10:37→21:44)
[2017-11-07] MEDS: INSULIN DETEMIR 100 UNITS/ML VIAL SQ SCH ×2 (10:37→21:43)
[2017-11-07] MEDS: SODIUM CHLOR 0.9% 1000 ML INJ 1,000 ML IV SCH (13:42)
--- NOTE | 2017-11-07 14:00 | HHI.PR ---
Subjective Remarks Pt continues with RUE & RLE weakness. Pt was able to ambulate using a walker with physical therapy. Objective Vitals Vital Signs Date Time Temp Pulse Resp B/P (MAP) Pulse Ox O2 Delivery O2 Flow Rate FiO2 11/07/17 12:00 97.5 83 18 167/105 (125) 98 11/07/17 08:00 97.7 74 18 148/92 (110) 98 11/07/17 05:40 97.8 71 18 142/94 (110) 96 11/07/17 01:29 97.5 84 18 166/99 (121) 97 11/07/17 00:00 74 11/06/17 21:48 97.7 89 18 165/97 (119) 96 11/06/17 20:00 77 11/06/17 16:00 97.6 83 20 173/98 (123) 97 Result Diagram: 11/05/17 1653 11/07/17 0855 Imaging Last Impressions Head CT 11/05/17 1533 Signed Impressions: Service Date/Time: Sunday, November 05, 2017 16:47 - CONCLUSION: Moderate basalganglia calcifications, nonspecific Otherwise negative for acute process. Nabil Ellis MD FACR Chest X-Ray 11/05/17 1533 Signed Impressions: Service Date/Time: Sunday, November 05, 2017 15:46 - CONCLUSION: No acute disease. Nabil Ellis MD FACR Carotid Artery Ultrasound 11/05/17 0000 Signed Impressions: Service Date/Time: Sunday, November 05, 2017 21:12 - CONCLUSION: 1. Mild plaque formation in the left internal carotid artery with hemodynamic profile on both sides characteristic of less than 50%% stenosis. Aston Loza MD Objective Remarks General: NAD, AAOx3 Chest: CTA Cardiac: Regular Abd: +BS, soft ND/NT Ext: ETIENNE without difficulty Neuro: RLE weakness 4/5, and RUE 4/5, no slurred speech A/P Problem List: (1) Stroke ICD Codes: I63.9 - Cerebral infarction, unspecified Status: Acute Plan: - comgmt with Neurology - Pt is a 67 y/o WM with atrial fibrillation s/p cardioversion x 2, diabetes, hypertension, hypothyroidism presents with a chief complaint of dysarthria and right-sided weakness. - Pt presented to another the ED on 11/04/17 after he woke up that morning with significant right sided weakness, gait instability, and slurred speech. This progressively worse so he went to another ER around 3 AM on 11/05. This would have been about 19 hours after the onset of symptoms. CT scan of the head that was negative. He states that he took aspirin prior to his presentation to that facility. He states that they gave him a blood pressure medication. He eventually left there [facility] as they recommended he stay for further eval. He subsequently presented to his primary care physician 's office after leaving [facility] and was found to be in atrial fibrillation. His PCP instructed him to come to the ED at [facility] [place] further evaluation, treatment and admission. - He has hx of chronic atrial fibrillation and underwent cardioversion 2 with the latter being successful. He reports he never had ablation. He reports that he stopped Eliquis in approximately January 2017 even though the fire medic told him would be a good idea to stay on it the rest of his life as a prophylactic. Secondary to cost he stopped the Eliquis. - Pt noted to be in A. fib in the ED here. - Head CT (11/05) --> Moderate basalganglia calcifications, nonspecific Otherwise negative for acute process. - Carotid US (11/05) --> Mild plaque formation in the left internal carotid artery with hemodynamic profile on both sides characteristic of less than 50% stenosis - Its felt that the pt likely had a left MCA stroke. Patient has risk with his A. fib and having stopped his anticoagulant. - Eliquis has been resumed. - Patient notes that he still has some right-sided weakness particularly of right lower extremity - PT/ST - resume atenolol and cozaar - Pt has refused MRI, states that he has had to be sedated with Versed in the past to have an MRI - again, Pt is refusing Lipitor - Telemetry - Echo (11/06) --> EF 55-60% - anticipate d/c to home 11/08 if BP improves and pt remains stable (2) Atrial fibrillation ICD Codes: I48.91 - Unspecified atrial fibrillation Status: Acute Plan: - As above. - Rate controlled. - Eliquis resumed. (3) Diabetic nephropathy ICD Codes: E11.21 - Type 2 diabetes mellitus with diabetic nephropathy Plan: - Hgb A1c 8.5% - NovoLog sliding scale insulin. - Levemir 10 units Q12H - Accu checks (4) Hypertension ICD Codes: I10 - Essential (primary) hypertension Plan: - Pt currently being allowed permissive hypertension with parameters. (5) Postlaminectomy syndrome ICD Codes: M96.1 - Postlaminectomy syndrome, not elsewhere classified Plan: - Continue home medication (6) Hypothyroidism ICD Codes: E03.9 - Hypothyroidism, unspecified Status: Chronic Plan: - Continue medication (7) Hyperlipidemia ICD Codes: E78.5 - Hyperlipidemia, unspecified Status: Chronic Plan: - Pt refusing statin (8) Anxiety ICD Codes: F41.9 - Anxiety disorder, unspecified Status: Chronic Plan: - Continue home medication Problem Qualifiers (1) Stroke: Qualified Codes: I63.9 - Cerebral infarction, unspecified (2) Atrial fibrillation: Qualified Codes: I48.0 - Paroxysmal atrial fibrillation (3) Diabetic nephropathy: Qualified Codes: E11.21 - Type 2 diabetes mellitus with diabetic nephropathy (4) Hypertension: Qualified Codes: I10 - Essential (primary) hypertension (5) Hyperlipidemia: Qualified Codes: E78.00 - Pure hypercholesterolemia, unspecified Santy Feldman DO Nov 07, 2017 14:00
--- NOTE | 2017-11-07 14:03 | HHI.FF ---
Face to Face Verification Diagnosis: (1) Stroke (2) Atrial fibrillation (3) Hypertension Physical Therapy Order: Evaluate and Treat, Improve ambulation, Strength and gait training Speech Therapy Order: To Improve: Speech and communication skills Home Health Nursing Order: Medical education Signs/symptoms of disease process Medication education-adverse effect Nursing assessment with vital signs I have seen patient Sherman Guerrero on 11/07/17. My clinical findings support the need for the requested home health care services because: Deconditioned w/ increased weakness Med compliance is questionable Limited ability to care for self Need for psychosocial assistance I certify that my clinical findings support that this patient is homebound because: Impaired cognitive ability/safety Unsteady gait/balance Unsafe to leave home unassisted Unable to use public transportation Santy Feldman DO Nov 07, 2017 14:03
[2017-11-07] MEDS ORDERED: QUAD CANE/SMALL1 MI1 (14:37)
[2017-11-07] MEDS: LOSARTAN 50 MG TAB PO SCH (14:59)
[2017-11-07] MEDS: ATENOLOL 25 MG TAB PO SCH (15:00)
[2017-11-08] VITALS: PULSE 75
[2017-11-08 00:09] VITALS: BP 157/106; PULSE 66; RESP 17; TEMP 97.8; O2SAT 98
[2017-11-08] MEDS: SODIUM CHLOR 0.9% 1000 ML INJ 1,000 ML IV SCH (01:20)
[2017-11-08 05:28] VITALS: BP 156/90; PULSE 70; RESP 17; TEMP 97.4; O2SAT 98
[2017-11-08] MEDS: LEVOTHYROXINE SODIUM 75 MCG TAB PO SCH (06:25)
[2017-11-08] MEDS: APIXABAN 5 MG TABLET PO SCH (06:25)
[2017-11-08] MEDS: LEVOTHYROXINE SODIUM 100 MCG TAB PO SCH (06:25)
[2017-11-08 08:00] VITALS: BP 144/91; PULSE 66; RESP 18; TEMP 97.7; O2SAT 98
--- NOTE | 2017-11-08 09:44 | HHI.DS ---
Discharge Summary Admission Date Nov 07, 2017 at 09:10 Discharge Date: Nov 08, 2017 Admitting Diagnosis stroke, AF (1) Stroke Diagnosis: Principal ICD Codes: I63.9 - Cerebral infarction, unspecified Status: Acute (2) Atrial fibrillation Diagnosis: Principal ICD Codes: I48.91 - Unspecified atrial fibrillation Status: Acute (3) Diabetic nephropathy Diagnosis: Secondary ICD Codes: E11.21 - Type 2 diabetes mellitus with diabetic nephropathy (4) Hypertension Diagnosis: Secondary ICD Codes: I10 - Essential (primary) hypertension (5) Postlaminectomy syndrome Diagnosis: Secondary ICD Codes: M96.1 - Postlaminectomy syndrome, not elsewhere classified (6) Hypothyroidism Diagnosis: Secondary ICD Codes: E03.9 - Hypothyroidism, unspecified Status: Chronic (7) Hyperlipidemia ICD Codes: E78.5 - Hyperlipidemia, unspecified Status: Chronic (8) Anxiety Diagnosis: Secondary ICD Codes: F41.9 - Anxiety disorder, unspecified Status: Chronic Consultants Dr. Ibanez Procedures none Brief History 67-year-old male with history of atrial fibrillation, diabetes, hypertension, hypothyroidism presents with a chief complaint of dysarthria and right-sided weakness. Onset was on awakening at 8 AM yesterday when he noted that he was having significant gait abnormality going to the bathroom. He reportedly stayed at home yesterday and rested but wasn't getting any better. He states that his symptoms are getting progressively worse so he went to another ER around 3 AM this morning. This would have been about 19 hours after the onset of symptoms. CT scan of the head that was negative. He states that he took aspirin prior to his presentation to that facility. He states that they gave him a blood pressure medication. He eventually left there [facility] as they recommended he stay for further eval. He subsequently presented to his primary care physician's office after leaving [facility] and was found to be in atrial fibrillation. His primary care physician instructed him to come here for further evaluation, treatment and admission. Patient reports he had chronic atrial fibrillation and underwent cardioversion 2 with the latter being successful. He reports he never had ablation. He reports that he stopped Eliquis in approximately January of this year even though the nuisance animal damage control agent told him would be a good idea to stay on it" the rest of his life as a prophylactic. He states the titus of several hundred dollars a month was too much for him. Patient notes that he still has some right-sided weakness particularly of right lower extremity and he reports that his speech is somewhat slurred or him. CBC/BMP: 11/05/17 1653 11/07/17 0855 Significant Findings Laboratory Tests Test 11/05/17 16:35 11/05/17 16:53 11/06/17 08:01 11/07/17 08:55 Urine Protein 30 mg/dL (NEG-TRACE) Urine Glucose (UA) 1000 mg/dL (NEG) Urine Bacteria OCC /hpf (NONE) Urine Mucus FEW /lpf (OCC) Urine Sperm RARE (NONE) Neutrophils (%) (Auto) 76.2 % (16.0-70.0) Blood Urea Nitrogen 20 MG/DL (7-18) 23 MG/DL (7-18) Creatinine 1.54 MG/DL (0.60-1.30) 1.33 MG/DL (0.60-1.30) Random Glucose 254 MG/DL (74-106) 178 MG/DL (74-106) Alkaline Phosphatase 125 U/L (45-117) Total Bilirubin 1.1 MG/DL (0.2-1.0) Estimat Glomerular Filtration Rate 45 ML/MIN (>89) 54 ML/MIN (>89) Hemoglobin A1c 8.5 % (4.3-6.0) Troponin I LESS THAN 0.02 NG/ML Sodium Level 135 MEQ/L (136-145) Imaging Last Impressions Head CT 11/05/17 1533 Signed Impressions: Service Date/Time: Sunday, November 05, 2017 16:47 - CONCLUSION: Moderate basalganglia calcifications, nonspecific Otherwise negative for acute process. Nabil Ellis MD FACR Chest X-Ray 11/05/17 1533 Signed Impressions: Service Date/Time: Sunday, November 05, 2017 15:46 - CONCLUSION: No acute disease. Nabil Ellis MD FACR Carotid Artery Ultrasound 11/05/17 0000 Signed Impressions: Service Date/Time: Sunday, November 05, 2017 21:12 - CONCLUSION: 1. Mild plaque formation in the left internal carotid artery with hemodynamic profile on both sides characteristic of less than 50%% stenosis. Aston Loza MD PE at Discharge General: NAD, AAOx3 Chest: CTA Cardiac: Regular Abd: +BS, soft ND/NT Ext: ETIENNE without difficulty Neuro: RLE weakness 4/5, and RUE 4/5, no slurred speech Hospital Course Stroke - comgmt with Neurology - Pt is a 67 y/o WM with atrial fibrillation s/p cardioversion x 2, diabetes, hypertension, hypothyroidism presents with a chief complaint of dysarthria and right-sided weakness. - Pt presented to another the ED on 11/04/17 after he woke up that morning with significant right sided weakness, gait instability, and slurred speech. This progressively worse so he went to another ER around 3 AM on 11/05. This would have been about 19 hours after the onset of symptoms. CT scan of the head that was negative. He states that he took aspirin prior to his presentation to that facility. He states that they gave him a blood pressure medication. He eventually left there [facility] as they recommended he stay for further eval. He subsequently presented to his primary care physician 's office after leaving [facility] and was found to be in atrial fibrillation. His PCP instructed him to [place] [facility] [place], treatment and admission. - He has hx of chronic atrial fibrillation and underwent cardioversion 2 with the latter being successful. He reports he never had ablation. He reports that he stopped Eliquis in approximately January 2017 even though the nuisance animal damage control agent told him would be a good idea to stay on it the rest of his life as a prophylactic. Secondary to cost he stopped the Eliquis. - Pt noted to be in A. fib in the ED here. - Head CT (11/05) --> Moderate basal ganglia calcifications, nonspecific Otherwise negative for acute process. - Carotid US (11/05) --> Mild plaque formation in the left internal carotid artery with hemodynamic profile on both sides characteristic of less than 50% stenosis - Its felt that the pt likely had a left MCA stroke. Patient has risk with his A. fib and having stopped his anticoagulant. - Eliquis has been resumed. - Patient notes that he still has some right-sided weakness particularly of right lower extremity - PT/ST - resume atenolol and cozaar - Pt has refused MRI, states that he has had to be sedated with Versed in the past to have an MRI - again, Pt is refusing Lipitor - Telemetry - Echo (11/06) --> EF 55-60% Atrial fibrillation - As above. - Rate controlled. - Eliquis resumed. Diabetic nephropathy - Hgb A1c 8.5% - NovoLog sliding scale insulin. - Levemir 10 units Q12H - Accu checks Hypertension - Pt currently being allowed permissive hypertension with parameters. Postlaminectomy syndrome - Continue home medication Hypothyroidism - Continue medication Hyperlipidemia - Pt refusing statin Anxiety - Continue home medication Pt Condition on Discharge: Stable Discharge Disposition: Disch w/ Home Health Serv Discharge Instructions DIET: Follow Instructions for: Heart Healthy Diet Speech Therapy-Diet Recommends: Regular Activities you can perform: Regular-No Restrictions Follow up Referrals: Neurology - 2 Weeks with Allen Ibanez PhD MD PCP Follow-up - [address] Bailey New Medications: Misc. Devices (Quad Cane/Small Base) 1 Mis Mis EA .ROUTE DIRECTED for unstable balance, #1 Apixaban (Eliquis) 5 Mg Tab 5 MG PO BID@0600,1800 for Blood Clot Prevention, #60 TAB 0 Refills Atorvastatin (Lipitor) 10 Mg Tab 10 MG PO DAILY for Cholesterol Management, #30 TAB 0 Refills Continued Medications: Atenolol (Tenormin) 25 Mg Tab 25 MG PO DAILY for Blood Pressure Management, #30 TAB 0 Refills Clonazepam (Klonopin) 0.5 Mg Tab 0.5 MG PO DAILY PRN for ANXIETY, TAB 0 Refills Insulin Detemir Inj (Levemir Flextouch Pen Inj) 300 unit/3 ML Pen 18 UNITS SQ BID for Blood Sugar Management, PEN 0 Refills Levothyroxine (Levothyroxine) 175 Mcg Tab 175 MCG PO DAILY for Thyroid, #30 TAB 0 Refills Losartan (Cozaar) 100 Mg Tab 100 MG PO DAILY for Blood Pressure Management, #30 TAB 0 Refills Tramadol (Tramadol) 50 Mg Tab 50-100 MG PO Q6H PRN for PAIN, TAB 0 Refills Additional Information Patient examined. Assessment and plan formulated with Ana Solomon PA-C. I agree with the above. Ana Solomon Nov 08, 2017 09:44 Santy Feldman DO Nov 12, 2017 01:52
[2017-11-08] MEDS ORDERED: APIX5TAB PO (09:49)
[2017-11-08] MEDS ORDERED: LIPI10TA PO (09:49)
[2017-11-08 10:08] VITALS: O2SAT 95
--- NOTE | 2017-11-08 10:45 | HHI.PR ---
Review/Management Diagnosis left hemisphere cva---exam showing improvement recurrent afib. Plan continue eliquis and statin Ok from neurology standpoint to discharge home with outpatient PT/OR Please schedule follow up with me in office in 2-3 weeks Diagnosis/Plan: Subjective Subjective Comments No acute events reported No headache Feels right sided weakness is about the same Active Medications Current Medications Medications (Trade) Dose Ordered Sig/Alin Route Start Time Stop Time Status Last Admin (Eliquis) 5 mg BID@0600,1800 PO 11/05/17 18:05 11/08/17 06:25 (NS Flush) 2 ml BID IV FLUSH 11/05/17 21:00 11/07/17 21:42 (NS Flush) 2 ml UNSCH PRN IV FLUSH 11/05/17 19:00 Sodium Chloride 1,000 ml @ 70 mls/hr [id number] IV 11/05/17 18:48 (Trandate Inj) 10 mg Q2H PRN IV PUSH 11/05/17 19:00 (NovoLOG SUPPLEMENTAL SCALE) 1 ACHS SQ 11/05/17 21:00 11/07/17 21:44 (D50w (Vial) Inj) 50 ml UNSCH PRN IV PUSH 11/05/17 19:00 (Glucagon Inj) 1 mg UNSCH PRN OTHER 11/05/17 19:00 (Levemir Inj) 10 units Q12HR SQ 11/05/17 21:00 11/07/17 21:43 (Lipitor) 10 mg DAILY PO 11/06/17 09:00 (KlonoPIN) 0.5 mg DAILY PRN PO 11/05/17 21:15 11/07/17 16:35 (Ultram) 100 mg Q6H PRN PO 11/05/17 21:15 11/07/17 20:11 (Synthroid) 100 mcg DAILY@0600 PO 11/06/17 06:00 11/08/17 06:25 (Synthroid) 75 mcg DAILY@0600 PO 11/06/17 06:00 11/08/17 06:25 (Tenormin) 25 mg DAILY PO 11/07/17 14:00 11/07/17 15:00 (Cozaar) 100 mg DAILY PO 11/07/17 14:00 11/07/17 14:59 Allergies Allergies Coded Allergies amlodipine (Unverified Allergy, Severe, COUGH, 11/05/17) benazepril (Unverified Allergy, Severe, PT ALLERGIC TO LOTREL, 11/05/17) doxycycline (Unverified Allergy, Severe, Hives, 11/05/17) minocycline (Unverified Allergy, Severe, Hives, 11/05/17) tigecycline (Unverified Allergy, Severe, Hives, 11/05/17) Exam I&O / VS Vital Signs Date Time Temp Pulse Resp B/P (MAP) Pulse Ox O2 Delivery O2 Flow Rate FiO2 11/08/17 10:08 95 21 11/08/17 08:00 97.7 66 18 144/91 (108) 98 11/08/17 05:28 97.4 70 17 156/90 (112) 98 11/08/17 00:09 97.8 66 17 157/106 (123) 98 11/08/17 00:00 75 11/07/17 20:46 98.0 78 17 170/98 (122) 95 11/07/17 20:15 82 11/07/17 17:54 98 21 11/07/17 16:00 98.2 88 18 166/97 (120) 97 11/07/17 16:00 85 11/07/17 12:00 97.5 83 18 167/105 (125) 98 Exam Comments alert, speech is dysarthric CN intact MOTOR 4+/5 RUE and RLE. 5/5 LUE and LLE Objective Micro and Labs Date/Time Source Procedure Growth Status 11/05/17 16:35 Urine Clean Catch Urine Culture - Final NO GROWTH IN 48 HOURS. Complete Allen Ibanez PhD Nov 08, 2017 10:45
[2017-11-08] MEDS: ATENOLOL 25 MG TAB PO SCH (10:46)
[2017-11-08] MEDS: LOSARTAN 50 MG TAB PO SCH (10:46)
[2017-11-08] MEDS: INSULIN DETEMIR 100 UNITS/ML VIAL SQ SCH (10:47)
[2017-11-08] MEDS: INSULIN ASPART SUPPLEMENTAL SCALE SQ SCH ×2 (10:47→13:14)
[2017-11-08] MEDS: traMADol HCL 50 MG TAB PO PRN (10:51)
[2017-11-08 12:00] VITALS: BP 160/96; PULSE 71; RESP 18; TEMP 98.5; O2SAT 97
== END 2017-11-08 14:49 | disposition home health service (06) | DRG 65 ==
LOC: NEPE 15:25 → NEDA 17:52 → UNDOADMIN 17:52 → NEDA 19:24 → N05B 19:24 → INTOOBSV 20:37 → OBSVTOIN 11-07 09:10
PROVIDERS: ADMIT Hospitalist; ATTEND Hospitalist
DX: I63.512 Cerebral infarction due to unspecified occlusion or stenosis of left middle cerebral artery (principal); G81.91 Hemiplegia, unspecified affecting right dominant side; E11.21 Type 2 diabetes mellitus with diabetic nephropathy; K76.0 Fatty (change of) liver, not elsewhere classified; Z68.41 Body mass index [BMI] 40.0-44.9, adult; I48.0 Paroxysmal atrial fibrillation; J44.9 Chronic obstructive pulmonary disease, unspecified; E03.9 Hypothyroidism, unspecified; M19.90 Unspecified osteoarthritis, unspecified site; E78.00 Pure hypercholesterolemia, unspecified; F40.240 Claustrophobia; I10 Essential (primary) hypertension; R47.1 Dysarthria and anarthria; K21.9 Gastro-esophageal reflux disease without esophagitis; N40.0 Benign prostatic hyperplasia without lower urinary tract symptoms; R26.9 Unspecified abnormalities of gait and mobility; E66.9 Obesity, unspecified; E05.00 Thyrotoxicosis with diffuse goiter without thyrotoxic crisis or storm; M96.1 Postlaminectomy syndrome, not elsewhere classified; Z79.4 Long term (current) use of insulin; Z86.73 Personal history of transient ischemic attack (TIA), and cerebral infarction without residual deficits
CPT/HCPCS: 70450; 71010; 80048; 80053; 80061; 81001; 82550; 82948; 83036; 84443; 84484; 85025; 85610; 85730; 87086; 93005; 93306; 93880; G8987-GP; G8988-GP; G8999-GN; G9186-GN; J1815; J2060

== ENCOUNTER 2018-06-26 10:51 | Observation (INO) ==
[2018-06-26 11:22] LABS: Baso # (Auto) 0.1 th/mm3 (0.0-0.2); Baso % (Auto) 0.7 % (0.0-2.0); Eos # (Auto) 0.3 th/mm3 (0.0-0.4); Eos % (Auto) 3.4 % (0.0-4.0); Hematocrit 44.4 % (39.0-51.0); Hemoglobin 15.4 gm/dL (13.0-17.0); Lymph # (Auto) 1.5 th/mm3 (1.0-4.8); Lymph % (Auto) 16.3 % (9.0-44.0); Mean Corpuscular HGB Conc 34.6 % (32.0-36.0); Mean Corpuscular Hemoglobin 31.6 pg (27.0-34.0); Mean Corpuscular Volume 91.3 fL (80.0-100.0); Mean Platelet Volume 8.4 fL (7.0-11.0); Mono # (Auto) 0.7 th/mm3 (0.0-0.9); Mono % (Auto) 7.3 % (0.0-8.0); Neut # (Auto) 6.4 th/mm3 (1.8-7.7); Neut % (Auto) 72.3 % (16.0-70.0); Platelet Count 258 th/mm3 (150-450); Red Blood Count 4.86 mil/mm3 (4.50-5.90); Red Cell Distribution Width 14.8 % (11.6-17.2); White Blood Count 8.9 th/mm3 (4.0-11.0)
--- NOTE | 2018-06-26 11:27 | CT ---
EXAM DATE: 06/26/2018 11:18 AM EDT AGE/SEX: 68 years / Male INDICATIONS: Stroke alert; right side weakness, slurred speech. CLINICAL DATA: This is the patient's initial encounter. Patient reports that signs and symptoms have been present for 1 day and indicates a pain score of Nonresponsive. MEDICAL/SURGICAL HISTORY: Stroke. Non-responsive. RADIATION DOSE: 52.83 CTDI (mGy) ; Patient motion COMPAR[place]: [facility] [place], [place]/05/2017. . TECHNIQUE: CT of the head without contrast. Using automated exposure control and adjustment of the mA and/or kV according to patient size, radiation dose was kept as low as reasonably achievable to ob tain optimal diagnostic quality images. DICOM format image data is available electronically for revi ew and comparison. FINDINGS: Cerebrum: Mild stable cerebral atrophy is noted. Mild to moderate periventricular and subcortical wh ite matter small vessel ischemic changes are noted bilaterally. Old lacunar infarcts are noted within the left lopes radiata and left basal ganglia. No acute hemorrhage, midline shift or extra-axial bl eed is noted. Posterior Fossa: The cerebellum is intact. There is an old lacunar infarct involving the right cesar . The 4th ventricle is midline. The cerebellopontine angle is unremarkable. Extracranial: The visualized portion of the orbits is intact. Skull: The calvaria is intact. No evidence of skull fracture. CONCLUSION: 1. Mild to moderate periventricular and subcortical white matter small vessel ischemic changes bilat erally. 2. Old lacunar infarcts involving the left lopes radiata and basal ganglia. 3. Old lacunar infarct involving the right cesar. 4. Mild stable cerebral atrophy. 5. No acute infarct, acute hemorrhage, midline shift or extra-axial bleed. Report was called by Dr. Mahoney to Dr. Macdonald at 11:22 AM on 06/26/2018. Electronically signed by: Aakash Mahoney MD 06/26/2018 11:26 AM EDT
[2018-06-26 11:37] LABS: Activated Partial Thrombo Time 27.5 sec (24.3-30.1); Prothrombin Time 10.6 sec (9.8-11.6)
[2018-06-26 11:42] LABS: Creatine Kinase 123 U/L (39-308)
--- NOTE | 2018-06-26 11:45 | XR ---
EXAM DATE: 06/26/2018 11:35 AM EDT AGE/SEX: 68 years / Male INDICATIONS: Stroke alert. CLINICAL DATA: This is the patient's initial encounter. Patient reports that signs and symptoms have been present for 1 day and indicates a pain score of Nonresponsive. MEDICAL/SURGICAL HISTORY: Non-responsive. Non-responsive. COMPARISON: [facility] – [place], [place]ST SINGLE AP, 11/05/2017. . FINDINGS: Minimal ectasis is noted within left lung base. The heart is normal. The pulmonary vascular pattern i s normal. The lungs are otherwise clear. Hardware is noted within the upper thoracic spine and is sta ble. CONCLUSION: Minimal left basilar atelectasis. Electronically signed by: Aakash Mahoney MD 06/26/2018 11:44 AM EDT
--- NOTE | 2018-06-26 11:48 | CT ---
EXAM DATE: 06/26/2018 11:40 AM EDT AGE/SEX: 68 years / Male INDICATIONS: Stroke alert; altered mental status, right side weakness, slurred speech. CLINICAL DATA: This is the patient's initial encounter. Patient reports that signs and symptoms have been present for 1 day and indicates a pain score of Nonresponsive. MEDICAL/SURGICAL HISTORY: Stroke. Non-responsive. RADIATION DOSE: 52.84 CTDI (mGy) ; Combined studies [place] [facility] [place]. . TECHNIQUE: Volumetric scanning was performed using a multi-row detector CT scanner during bolus infu gigi of 50 ml Visipaque 320 (iodixanol) nonionic water-soluble contrast as a cumulative dose for mul tiple exams. The data was post processed with a variety of visualization algorithms including full volume maximum intensity projection, multi-planar sliding thin slab reformation, curved planar reform ation, and surface rendering techniques. Using automated exposure control and adjustment of the mA a nd/or kV according to patient size, radiation dose was kept as low as reasonably achievable to obtain optimal diagnostic quality images. DICOM format image data is available electronically for review a nd comparison. FINDINGS: There is excellent visualization of the major intracranial arteries out to the second-order branch ve ssels. There is no evidence for aneurysm, vessel truncation or stenosis, and no evidence for vascula r malformation. Dense calcification of the distal internal carotids of the skull base with no associa vesta stenosis. CONCLUSION: 1. Dense atherosclerotic calcification of the distal internal carotid arteries at skull base. 2. Otherwise, intracranial vessels are all patent without embolic event to explain current clinical symptoms. 3. Results were called to Dr. Hernandez at the time of this dictation Electronically signed by: Shamar Aden MD 06/26/2018 11:47 AM EDT
--- NOTE | 2018-06-26 12:26 | ED ---
HPI General Chief Complaint: Stroke Alert Stated Complaint: Neuro Time Seen by Provider: 06/26/18 11:05 History of Present Illness HPI Narrative: Patient presents to the emergency department with acute onset of slurred speech. She does have a prior history of CVA and is on Eliquis. states that he developed slurred speech and approximately one half hour prior to ER arrival. History of diabetes, prior CVA with no residual deficits, and A. fib. Accu-Chek was 134 emergency department. He is reporting some nausea and left-sided chest pain in route to the emergency department but it has since resolved. Pain is described as being left-sided, intermittent, minutes in duration, moved to his throat, no chest pain now. Related Data Allergies Allergy/AdvReac Type Severity Reaction Status Date / Time amlodipine Allergy Severe COUGH Unverified 11/05/17 17:09 benazepril Allergy Severe PT Unverified 11/05/17 17:09 ALLERGIC TO LOTREL doxycycline Allergy Severe Hives Unverified 11/05/17 17:09 minocycline Allergy Severe Hives Unverified 11/05/17 17:09 tigecycline Allergy Severe Hives Unverified 11/05/17 17:09 Review of Systems ROS: all other systems reviewed are negative Constitutional Reports as per HPI [facility] Medical History Medical History Diabetes (Acute) Graves disease (Acute) History of thyroidectomy (Acute) Stroke (Acute) Social History Social History Substance History: No History of Abuse Second Hand Smoke Exposure: No Smoking Status: Former smoker How Often Do You Have a Drink Containing Alcohol: Monthly or less Recent Travel in [facility] within the Last 8 Weeks: No Recent Out of Country Travel within the Last 8 Weeks: No Immunization History Tetanus Immunization: <5 Years Hx Influenza Vaccine This Season: Yes Exam Narrative Exam Narrative: GENERAL: Awake alert. SKIN: Focused skin assessment warm/dry. HEAD: Atraumatic. Normocephalic. EYES: Pupils equal and round. No scleral icterus. No injection or drainage. ENT: No nasal bleeding or discharge. Mucous membranes pink and moist. NECK: Trachea midline. No JVD. CARDIOVASCULAR: Regular rate and rhythm. No murmur appreciated. RESPIRATORY: No accessory muscle use. Clear to auscultation. Breath sounds equal bilaterally. GASTROINTESTINAL: Abdomen soft, non-tender, nondistended. Hepatic and splenic margins not palpable. MUSCULOSKELETAL: No obvious deformities. No clubbing. No cyanosis. No edema. NEUROLOGICAL: Awake and alert. No obvious cranial nerve deficits. Motor grossly within normal limits. Slurred speech. PSYCHIATRIC: Appropriate mood and affect; insight and judgment normal. Course Initial Documented Vital Signs Pulse Rate 79 06/26/18 10:55 Respiratory Rate 18 06/26/18 10:55 Blood Pressure 157/88 H 06/26/18 10:55 Pulse Oximetry 100 06/26/18 10:55 Last Documented Vital Signs Pulse Rate 79 06/26/18 10:55 Respiratory Rate 18 06/26/18 10:55 Blood Pressure 157/88 H 06/26/18 10:55 Pulse Oximetry 98 06/26/18 11:04 Critical Care Time Critical Care Time: Yes Total Critical Care Time: 35 Attestation: Aggregate critical care time was 35 minutes. Time to perform other separately billable procedures was not included in the critical care time. My time did not include minutes spent treating any other patients simultaneously or on activities that did not directly contribute to the patient's treatment. The services I provided to this patient were to treat and/or prevent clinically significant deterioration that could result in: , increased morbidity I provided critical care services requiring my management, as noted below: Chart data review, documentation time, medication orders and management, vital sign assessments/reviewing monitor data, ordering and reviewing lab tests, ordering and interpreting/reviewing x-rays and diagnostic studies, care of the patient and discussion of the patient with the admitting physicians. Quality Measure Queries Stroke Last date observed well: 06/26/18 Last time observed well: 09:30 Medical Decision Making MDM Narrative Medical decision making narrative: Patient presents to the emergency department with resolved chest pain but with continued slurred speech. Patient placed on cardiac technologist, continuous pulse ox, IV access obtained. Patient was made a stroke alert. Head CT, CTA, EKG, chest x-ray, labs ordered. Dr Hernandez: Recommend keep patient flat, ASA 81mg po, IV fluids, permissive HTN, MRI without, admission. CTA neck: CONCLUSION:1. At the proximal left internal carotid artery there is moderate plaque formation with 40-50% stenosis, not hemodynamically significant.2. At the proximal right internal carotid artery there is mild plaque formation with less than 30% stenosis.3. Both vertebral arteries are patent, dominant right. CTA head: CONCLUSION:1. Dense atherosclerotic calcification of the distal internal carotid arteries at skull base. 2. Otherwise, intracranial vessels are all patent without embolic event to explain current clinical symptoms. CT head: CONCLUSION:1. Mild to moderate periventricular and subcortical white matter small vessel ischemic changes bilaterally.2. Old lacunar infarcts involving the left lopes radiata and basal ganglia.3. Old lacunar infarct involving the right cesar.4. Mild stable cerebral atrophy.5. No acute infarct, acute hemorrhage, midline shift or extra-axial bleed. CXR: CONCLUSION: Minimal left basilar atelectasis. Labs: Elevated glc, fibrinogen, creatinine Lab Data Result diagrams: 06/26/18 10:55 Lab Results 06/26/18 06/26/18 06/26/18 Range/Units 10:55 10:55 10:55 WBC 8.9 (4.0-11.0) th/mm3 RBC 4.86 (4.50-5.90) mil/mm3 Hgb 15.4 (13.0-17.0) gm/dL POC Hgb (Calc) (13.0-17.0) g/dL Hct 44.4 (39.0-51.0) % POC Hct (39-51.0) % MCV 91.3 (80.0-100.0) fL MCH 31.6 (27.0-34.0) pg MCHC 34.6 (32.0-36.0) % RDW 14.8 (11.6-17.2) % Plt Count 258 (150-450) th/mm3 MPV 8.4 (7.0-11.0) fL Neut % (Auto) 72.3 H (16.0-70.0) % Lymph % (Auto) 16.3 (9.0-44.0) % [place] % (Auto) 7.3 (0.0-8.0) % Eos % (Auto) 3.4 (0.0-4.0) % Baso % (Auto) 0.7 (0.0-2.0) % Neut # (Auto) 6.4 (1.8-7.7) th/mm3 Lymph # (Auto) 1.5 (1.0-4.8) th/mm3 [place] # (Auto) 0.7 (0.0-0.9) th/mm3 Eos # (Auto) 0.3 (0.0-0.4) th/mm3 Baso # (Auto) 0.1 (0.0-0.2) th/mm3 WBC Differential . Differential Comment Auto diff final PT 10.6 (9.8-11.6) sec INR 1.0 Ratio APTT 27.5 (24.3-30.1) sec Fibrinogen 434 H (227-377) mg/dL POC Sodium (137-144) mmol/L POC Potassium (3.6-5.0) mmol/L POC Chloride (102-111) mmol/L POC BUN (5-21) mg/dL POC Creatinine (0.6-1.3) mg/dL POC Glucose (68-110) mg/dL Total Creatine Kinase 123 (39-308) U/L Troponin I Less than 0.02 L (0.02-0.05) ng/mL Blood Type Blood Type Recheck Antibody Screen 06/26/18 06/26/18 Range/Units 10:55 10:55 WBC (4.0-11.0) th/mm3 RBC (4.50-5.90) mil/mm3 Hgb (13.0-17.0) gm/dL POC Hgb (Calc) 15.0 (13.0-17.0) g/dL Hct (39.0-51.0) % POC Hct 44.0 (39-51.0) % MCV (80.0-100.0) fL MCH (27.0-34.0) pg MCHC (32.0-36.0) % RDW (11.6-17.2) % Plt Count (150-450) th/mm3 MPV (7.0-11.0) fL Neut % (Auto) (16.0-70.0) % Lymph % (Auto) (9.0-44.0) % [place] % (Auto) (0.0-8.0) % Eos % (Auto) (0.0-4.0) % Baso % (Auto) (0.0-2.0) % Neut # (Auto) (1.8-7.7) th/mm3 Lymph # (Auto) (1.0-4.8) th/mm3 [place] # (Auto) (0.0-0.9) th/mm3 Eos # (Auto) (0.0-0.4) th/mm3 Baso # (Auto) (0.0-0.2) th/mm3 WBC Differential Differential Comment PT (9.8-11.6) sec INR Ratio APTT (24.3-30.1) sec Fibrinogen (227-377) mg/dL POC Sodium 138 (137-144) mmol/L POC Potassium 4.1 (3.6-5.0) mmol/L POC Chloride 102 (102-111) mmol/L POC BUN 32 H (5-21) mg/dL POC Creatinine 1.8 H (0.6-1.3) mg/dL POC Glucose 134 H (68-110) mg/dL Total Creatine Kinase (39-308) U/L Troponin I (0.02-0.05) ng/mL Blood Type O Positive Blood Type Recheck Required Antibody Screen Negative Imaging Data Radiologist's impression: Chest X-Ray 06/26/18 11:04 CONCLUSION: Minimal left basilar atelectasis. Head CT 06/26/18 11:04 CONCLUSION: 1. Mild to moderate periventricular and subcortical white matter small vessel ischemic changes bilaterally. 2. Old lacunar infarcts involving the left lopes radiata and basal ganglia. 3. Old lacunar infarct involving the right cesar. 4. Mild stable cerebral atrophy. 5. No acute infarct, acute hemorrhage, midline shift or extra-axial bleed. Report was called by Dr. Mahoney to Dr. Macdonald at 11:22 AM on 06/26/2018. Head CTA 06/26/18 11:04 CONCLUSION: 1. Dense atherosclerotic calcification of the distal internal carotid arteries at skull base. 2. Otherwise, intracranial vessels are all patent without embolic event to explain current clinical symptoms. 3. Results were called to Dr. Hernandez at the time of this dictation Neck CTA 06/26/18 11:04 CONCLUSION: 1. At the proximal left internal carotid artery there is moderate plaque formation with 40-50% stenosis, not hemodynamically significant. 2. At the proximal right internal carotid artery there is mild plaque formation with less than 30% stenosis. 3. Both vertebral arteries are patent, dominant right. ECG Data Attestation: I personally reviewed and interpreted this ECG as follows: (Atrial fib, left axis, rate 60, RBBB, TWI II, I, V2-V6, Q wave V1 (similar to ecg in prior)) Discharge Plan Discharge Disposition Patient Disposition: 30 Still Patient Discharge Condition Condition: Stable Discharge Details Diagnosis: Transient cerebral ischemia Physicians Team ED Provider: Mishel Macdonald Primary Care Provider: UNKNOWN, Other Providers: Batsheva Hernandez Status ED Status: With Doctor
--- NOTE | 2018-06-26 12:32 | CT ---
EXAM DATE: 06/26/2018 12:16 PM EDT AGE/SEX: 68 years / Male INDICATIONS: Stroke alert; altered mental status, right side weakness, slurred speech. CLINICAL DATA: This is the patient's initial encounter. Patient reports that signs and symptoms have been present for 1 day and indicates a pain score of Nonresponsive. MEDICAL/SURGICAL HISTORY: Stroke. Non-responsive. RADIATION DOSE: 52.85 CTDI (mGy) ; Combined studies COMPARISON: No prior exams available for comparison. TECHNIQUE: Volumetric scanning was performed using a multirow detector CT scanner during bolus infus ion of 50 ml Visipaque 320 (iodixanol) nonionic water-soluble contrast as a cumulative dose for mult iple exams. The data was postprocessed with a variety of visualization algorithms including full-vo lume maximum intensity projection, multiplanar sliding thin-slab reformation, curved-planar reformati on, and surface-rendering techniques. Using automated exposure control and adjustment of the mA and/ or kV according to patient size, radiation dose was kept as low as reasonably achievable to obtain op timal diagnostic quality images. DICOM format image data is available electronically for review and comparison. Percent stenosis is calculated using the diameter of the stenotic region over the diameter of the nor mal distal internal carotid artery. FINDINGS: The great vessel origins are patent and both common carotid arteries are patent. At the proximal left internal carotid artery there is eccentric plaque formation resulting in a focal 40-50% stenosis whi ch does not appear to be hemodynamically significant. At the right carotid bifurcation and proximal right internal carotid artery there is plaque formation with minimal stenosis of 30% or less. Remainder of internal carotid arteries are patent within the neck. Proximal external carotid arteries are patent. Both vertebral arteries are patent within the neck with a dominant right vertebral. CONCLUSION: 1. At the proximal left internal carotid artery there is moderate plaque formation with 40-50% steno sis, not hemodynamically significant. 2. At the proximal right internal carotid artery there is mild plaque formation with less than 30% s tenosis. 3. Both vertebral arteries are patent, dominant right. Electronically signed by: Vincent Manley MD 06/26/2018 12:31 PM EDT
--- NOTE | 2018-06-26 14:58 | P.HPIM ---
History of Present Illness Primary Care Physician: UNKNOWN Chief Complaint: Slurred speech History of Present Illness: Mr. Guerrero is a 67 y/o male with atrial fibrillation, diabetes, hypertension, hypothyroidism and CVA who presented to the ED at [facility] on 06/26/18 with complaints of acute onset of slurred speech and left sided facial droop. He does have a prior history of CVA in 10/2017 and is on Eliquis. The pt reportedly developed slurred speech and left facial droop approximately 30 mins prior to arrival in the ED. He was brought to the ED as a stroke alert. He also reported some nausea and left-sided chest pain in route to the emergency department but it has since resolved. His at the bedside reported that the facial droop has improved but that his speech is still slurred. In the ED pt was evaluated with Head CT which noted mild to moderate periventricular and subcortical white matter small vessel ischemic changes bilaterally, old lacunar infarcts involving the left lopes radiata and basal ganglia, old lacunar infarct involving the right csear, mild stable cerebral atrophy, but no acute infarct, acute hemorrhage, midline shift or extra-axial bleed. Head CTA (06/26/18) noted dense atherosclerotic calcification of the distal internal carotid arteries at skull base; otherwise, intracranial vessels are all patent without embolic event to explain current clinical symptoms. Neck CTA (06/26/18) noted the proximal left internal carotid artery there is moderate plaque formation with 40 -50% stenosis, not hemodynamically significant, the proximal right internal carotid artery there is mild plaque formation with less than 30% stenosis, and both vertebral arteries are patent, dominant right. Pt is refusing an MRI of the brain due to severe claustrophobia. He states that the only time has has been able to tolerating having an MRI performed he had to be sedated with Versed. Past Medical History Anxiety Atrial fibrillation CVA BPH COPD Diabetic nephropathy Lumbar degenerative disc disease GERD Hypertension Hyperlipidemia Hypothyroidism Obesity Postlaminectomy syndrome Psoriasis History of SVT 2D echo (11/06/17) - In limited views, the left ventricular systolic function is normal with an estimated ejection fraction in the range of 55-60%. - Mild concentric left ventricular hypertrophy Past Surgical History Colonic resection in 2008 for diverticulitis and colitis Incisional hernia repair Anterior cervical fusion Paravertebral nerve block Lumbar Spinal discectomy Last colonoscopy November 2014 revealed some signs of possible colitis and low- grade adenomatous polyp Family History Sister had some form of brain cancer Mother in her 80s of dementia but apparently had history of kidney cancer Father in his 80s and had apparently some dementia, possibly history of stroke but is unsure. 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 Originally from [place], moved here approximately 30 years ago - Diagnosis (1) Transient cerebral ischemia Review of Systems All other systems reviewed negative except as stated in HPI Constitutional: Denies chills, Denies fever(s), Denies night sweats Eyes: Denies change in vision, Denies double vision, Denies loss of vision Ears, Nose, Mouth, and Throat: Denies difficulty swallowing, Denies dizziness, Denies headache(s), Denies hoarseness Cardiovascular: Reports chest pain, Denies shortness of breath Respiratory: Denies cough Gastrointestinal: Denies abdominal pain, Denies constipation, Denies difficulty swallowing, Denies loose stools, Denies nausea, Denies vomiting Genitourinary: Denies urinary incontinence, Denies urinary urgency Musculoskeletal: Denies back pain, Denies neck pain Skin/Breast: Denies rash Neurologic: Reports abnormal speech, Reports weakness PMFSH - History History Provided By: Patient - Medical History Medical History: Medical History (Last Updated 06/26/18 @ 11:00 by Kayla Qureshi) Diabetes Graves disease History of thyroidectomy Stroke - Tobacco History Second Hand Smoke Exposure: No Tobacco Use In Past 30 Days: No Smoking Status: Former smoker - Alcohol History How Often Do You Have a Drink Containing Alcohol: Monthly or less - Substance Use History Substance History: No History of Abuse - Travel History Recent Travel in the [place] Within the Last 8 Weeks: No Recent Travel Out of the Country Within the Last 8 Weeks: No - Immunization History Tetanus Immunization: <5 Years Hx Influenza Vaccine This Season: Yes Medications and Allergies Allergies Allergy/AdvReac Type Severity Reaction Status Date / Time amlodipine Allergy Severe COUGH Unverified 11/05/17 17:09 doxycycline Allergy Severe Hives Unverified 11/05/17 17:09 minocycline Allergy Severe Hives Unverified 11/05/17 17:09 tigecycline Allergy Severe Hives Unverified 11/05/17 17:09 benazepril AdvReac Severe PT Unverified 06/26/18 16:45 ALLERGIC TO LOTREL Home Medications Medication Instructions Recorded Confirmed Type amlodipine 5 mg PO DAILY 06/26/18 06/26/18 History apixaban [Eliquis] 5 mg PO BID 06/26/18 06/26/18 History atenolol 25 mg PO DAILY 06/26/18 06/26/18 History fluticasone [Allergy Relief 2 spray INTRANASAL DAILY 06/26/18 06/26/18 History (fluticasone)] insulin degludec [Tresiba 30 unit SUB-Q HS 06/26/18 06/26/18 History FlexTouch U-100] ipratropium-albuterol 3 ml INHALATION QID PRN 06/26/18 06/26/18 History levothyroxine 150 mcg PO DAILY 06/26/18 06/26/18 History liraglutide [Victoza 3-Darron] 1.2 mg SUB-Q DAILY 06/26/18 06/26/18 History losartan-hydrochlorothiazide 1 tab PO DAILY 06/26/18 06/26/18 History sertraline 25 mg PO DAILY 06/26/18 06/26/18 History tramadol 50 mg PO Q6H PRN 06/26/18 06/26/18 History Exam Vital signs: Vital Signs 06/26/18 10:55 06/26/18 11:04 Pulse Rate 79 Respiratory Rate 18 Blood Pressure 157/88 H Pulse Oximetry 100 98 Intake & Output 06/25/18 06/26/18 06/26/18 18:59 06:59 18:59 Weight 92.986 kg Narrative: GENERAL: NAD, AAOx3 SKIN: Warm and dry. HEENT: Atraumatic. Normocephalic. Pupils equal and round. No scleral icterus. No injection or drainage. No nasal bleeding or discharge. Mucous membranes pink and moist. NECK: Trachea midline. No JVD. CARDIO: Irregularly irregular RESP: Clear to auscultation bilaterally. ABD: +BS, soft, non-tender, nondistended. EXT: Extremities without clubbing, cyanosis, or edema. No obvious deformities. NEURO: Awake and alert. No obvious cranial nerve deficits. Motor grossly within normal limits. Five out of 5 muscle strength in the arms and legs. Slurred speech PSYCH: Appropriate mood and affect; insight and judgment normal. Results - Labs CBC & Chem 7: 06/26/18 10:55 Labs: Short CBC 06/26/18 Range/Units 10:55 WBC 8.9 (4.0-11.0) th/mm3 Hgb 15.4 (13.0-17.0) gm/dL Hct 44.4 (39.0-51.0) % Plt Count 258 (150-450) th/mm3 Cardiac Enzymes 06/26/18 Range/Units 10:55 Total Creatine Kinase 123 (39-308) U/L Troponin I Less than 0.02 L (0.02-0.05) ng/mL - Imaging Impressions Chest X-Ray 06/26/18 11:04 CONCLUSION: Minimal left basilar atelectasis. Head CT 06/26/18 11:04 CONCLUSION: 1. Mild to moderate periventricular and subcortical white matter small vessel ischemic changes bilaterally. 2. Old lacunar infarcts involving the left lopes radiata and basal ganglia. 3. Old lacunar infarct involving the right cesar. 4. Mild stable cerebral atrophy. 5. No acute infarct, acute hemorrhage, midline shift or extra-axial bleed. Report was called by Dr. Mahoney to Dr. Macdonald at 11:22 AM on 06/26/2018. Head CTA 06/26/18 11:04 CONCLUSION: 1. Dense atherosclerotic calcification of the distal internal carotid arteries at skull base. 2. Otherwise, intracranial vessels are all patent without embolic event to explain current clinical symptoms. 3. Results were called to Dr. Hernandez at the time of this dictation Neck CTA 06/26/18 11:04 CONCLUSION: 1. At the proximal left internal carotid artery there is moderate plaque formation with 40-50% stenosis, not hemodynamically significant. 2. At the proximal right internal carotid artery there is mild plaque formation with less than 30% stenosis. 3. Both vertebral arteries are patent, dominant right. Caprini VTE Risk Assessment Caprini VTE Risk Assessment: Moderate/High Risk (score >= 2) Caprini Risk Assessment Model: Point Value = 1 Point Value = 2 Point Value = 3 Point Value = 5 Age 41-60 Minor surgery BMI > 25 kg/m2 Swollen legs Varicose veins or History of unexplained or recurrent spontaneous Oral contraceptives or hormone replacement Sepsis (< 1 month) Serious lung disease, including pneumonia (< 1 month) Abnormal pulmonary function Acute myocardial infarction Congestive heart failure (< 1 month) History of inflammatory bowel disease Medical patient at bed rest Age 61-74 Arthroscopic surgery Major open surgery (> 45 min) Laparoscopic surgery (> 45 min) Malignancy Confined to bed (> 72 hours) Immobilizing plaster cast Central venous access Age >= 75 History of VTE Family history of VTE Factor V Leiden Prothrombin [id number] Lupus anticoagulant Anticardiolipin antibodies Elevated serum homocysteine Heparin-induced thrombocytopenia Other congenital or acquired thrombophilia Stroke (< 1 month) Elective arthroplasty Hip, pelvis, or leg fracture Acute spinal cord injury (< 1 month) Prophylaxis Regimen: Total Risk Factor Score Risk Level Prophylaxis Regimen 0-1 Low Early ambulation 2 Moderate Order ONE of the following: *Sequential Compression Device (SCD) *Heparin 5000 units SQ BID 3-4 Higher Order ONE of the following medications: *Heparin 5000 units SQ TID *Enoxaparin/Lovenox 40 mg SQ daily (WT < 150 kg, CrCl > 30 mL/min) *Enoxaparin/Lovenox 30 mg SQ daily (WT < 150 kg, CrCl > 10-29 mL/min) *Enoxaparin/Lovenox 30 mg SQ BID (WT < 150 kg, CrCl > 30 mL/min) AND/OR *Sequential Compression Device (SCD) 5 or more Highest Order ONE of the following medications: *Heparin 5000 units SQ TID (Preferred with Epidurals) *Enoxaparin/Lovenox 40 mg SQ daily (WT < 150 kg, CrCl > 30 mL/min) *Enoxaparin/Lovenox 30 mg SQ daily (WT < 150 kg, CrCl > 10-29 mL/min) *Enoxaparin/Lovenox 30 mg SQ BID (WT < 150 kg, CrCl > 30 mL/min) AND *Sequential Compression Device (SCD) Assessment and Plan - Assessment (1) Transient cerebral ischemia Code(s): G45.9 - Transient cerebral ischemic attack, unspecified Status: Acute Plan: TIA, possible stroke Hx of CVA - Pt is a 68 y/o WM with atrial fibrillation s/p cardioversion x 2, diabetes, hypertension, hypothyroidism, and prior history of CVA in 10/2017 and is on Eliquis - He presented to the ED at with a chief complaint of dysarthria and left sided facial droop and left UE weakness which developed approximately 30 mins prior to arrival in the ED. He was brought to the ED as a stroke alert. - Neurology has been consulted - Head CT (06/26/18) - Mild to moderate periventricular and subcortical white matter small vessel ischemic changes bilaterally - Old lacunar infarcts involving the left lopes radiata and basal ganglia - Old lacunar infarct involving the right cesar - Mild stable cerebral atrophy, but no acute infarct, acute hemorrhage, midline shift or extra-axial bleed. - Head CTA (06/26/18) - Dense atherosclerotic calcification of the distal internal carotid arteries at skull base - Otherwise, intracranial vessels are all patent without embolic event to explain current clinical symptoms. - Neck CTA (06/26/18) - The proximal left internal carotid artery there is moderate plaque formation with 40-50% stenosis, not hemodynamically significant - The proximal right internal carotid artery there is mild plaque formation with less than 30% stenosis - Both vertebral arteries are patent, dominant right. - Pt is refusing an MRI of the brain due to severe claustrophobia. He states that the only time has has been able to tolerating having an MRI performed he had to be sedated with Versed. - Pt noted to be in A. fib in the ED here. - Pt is refusing Lipitor - HOB flat - Permissive HTN - Bedside swallow evaluation - ST to evaluate - PT/OT - Telemetry - Neuro checks - Supportive care - Cont. Eliquis - Pt took ASA prior to arrival in the ED, continue ASA 81mg po daily Atrial fibrillation - As above. - Rate controlled. - Eliquis resumed. Diabetes mellitus Diabetic nephropathy - Hgb A1c 8.5% in 10/2017 - NovoLog sliding scale insulin. - Levemir 10 units Q12H - Accu checks Hypertension - Pt currently being allowed permissive hypertension with parameters. Postlaminectomy syndrome - Continue home medication Hypothyroidism - Continue medication Hyperlipidemia - Pt refusing statin Anxiety - Continue home medication (1) Transient cerebral ischemia Qualifiers: Transient cerebral ischemia type: unspecified Qualified Code(s): G45.9 - Transient cerebral ischemic attack, unspecified
[2018-06-26] MEDS ORDERED: Acetaminophen 325 MG Tablet PO PRN (15:34)
--- NOTE | 2018-06-26 15:48 | ECG ---
Date Performed: 06/26/2018 Time Performed: 12:37:25 PTAGE: 68 years EKG: ATRIAL FIBRILLATION RIGHT BUNDLE BRANCH BLOCK ABNORMAL ECG PREVIOUS TRACING : 11/05/2017 17.13 Since the previous tracing, no significant change noted DOCTOR: Giovany Modi Interpretating Date/Time 06/26/2018 15:48:06
[2018-06-26] MEDS ORDERED: Dextrose 50% in Water 50 ML Vial IV.PUSH PRN (16:24)
--- NOTE | 2018-06-26 17:19 | MB ---
cc: Batsheva Hernandez MD DATE: 06/26/2018 DATE OF : 1950 AGE: [age] years old. REASON FOR CONSULTATION: Stroke Alert. HISTORY OF PRESENT ILLNESS: This is a 68-year-old man with a history of atrial fibrillation, diabetes, hypertension, hypothyroidism, stroke in the past, comes in today with complaints of onset of slurred speech and left-sided facial droop. The facial droop is now gone. He has slurred speech; it is really unclear when it occurred. He woke up, he had some coffee, but he was not speaking to anyone at that time so it is possible that he may have woken up with it. However, he was not deemed to be a tPA candidate due to the fact he was on Eliquis 5 mg b.i.d. He did go for a STAT CT that was unremarkable and CTA of the carotids and habematolel of [place] that shows left carotid 40-50% and right less than 30%. He had a stroke back in October of last year. Since then, he has been on Eliquis. His CT of the head showed dense atherosclerotic calcification of the distal internal carotid at the skull base, otherwise no embolic phenomenon noted. I asked him to do an MRI, but he refuses due to severe claustrophobia. He still has some speech issues, but no facial droop. His last echo in 2016 showed left ventricular normal systolic function with mild concentric LVH. SURGICAL HISTORY: Lumbar spine diskectomy, colon resection 2008, anterior cervical fusion. SOCIAL HISTORY: No tobacco in 3 years. Used to smoke a pack a day for 45 years. Drinks alcohol, about 2 glasses of wine every other day, but not heavily in the past. No withdrawal history. 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 EXAMINATION: VITAL SIGNS: Temperature is 98.9, pulse 68, respiratory rate 16, blood pressure 134/84, saturating 98% on room air. NECK: Supple. I do not appreciate any carotid bruits. HEART: At this point is regular. NEUROLOGIC: He is awake and alert. He is dysarthric, has trouble repeating complex sentences. Tongue midline. No facial asymmetry. Visual cuellar are full. Motor-mccormick no drift or leg lag. Cerebellar normal. DTRs 1+. Toes withdraws. Gait is withheld. LABORATORY DATA: Reviewed. Creatinine 1.8. IMAGING STUDIES: Reports as stated. CTA and habematolel of [place] as per above. CT: No acute findings. IMPRESSION: Stroke-like symptoms with atrial fibrillation despite being on Eliquis. Recommend adding a baby aspirin. He refuses MRI. The best we can do at this point is to repeat a CT noncontrast of the brain in the morning for any changes. Continue Eliquis, add a baby aspirin. Apparently, he was refusing from the primary team Lipitor. I am going to check a lipid panel. Check an A1c. Continue his NovoLog and Levemir. Permissible hypertension today. PT, OT, speech therapy evaluations. If stable, certainly can be discharged home with outpatient speech therapy. I will go ahead and order a CT of the brain for tomorrow. Continue current care. MD SMILEY Mendez/AMNA , 05:02 PM , 05:10 PM
[2018-06-26] MEDS: Insulin NovoLOG Aspart Correctional Sugar Inj SQ SCH ×2 (18:53→21:41)
[2018-06-26] MEDS: Sod Chloride 0.9% Inj 1,000 ML IV.CONT SCH (20:31)
[2018-06-26] MEDS ORDERED: Temazepam 15 MG Capsule PO PRN (21:00)
[2018-06-26] MEDS: Insulin Detemir Inj 1,000 UNIT/10 ML Vial SQ SCH (21:41)
[2018-06-26] MEDS: Senna/Docusate Sodium 8.6/50 MG Tablet PO SCH (21:42)
[2018-06-26 23:43] LABS: Creatine Kinase 99 U/L (39-308)
[2018-06-27] MEDS ORDERED: Levothyroxine 150 MCG Tablet PO SCH (06:00)
[2018-06-27 07:46] LABS: Baso % (Auto) 0.6 % (0.0-2.0); Eos # (Auto) 0.3 th/mm3 (0.0-0.4); Eos % (Auto) 3.8 % (0.0-4.0); Hematocrit 40.6 % (39.0-51.0); Hemoglobin 14.3 gm/dL (13.0-17.0); Lymph # (Auto) 1.2 th/mm3 (1.0-4.8); Lymph % (Auto) 15.7 % (9.0-44.0); Mean Corpuscular HGB Conc 35.1 % (32.0-36.0); Mean Corpuscular Hemoglobin 31.5 pg (27.0-34.0); Mean Corpuscular Volume 89.6 fL (80.0-100.0); Mean Platelet Volume 8.7 fL (7.0-11.0); Mono # (Auto) 0.5 th/mm3 (0.0-0.9); Mono % (Auto) 6.9 % (0.0-8.0); Neut # (Auto) 5.8 th/mm3 (1.8-7.7); Platelet Count 218 th/mm3 (150-450); Red Blood Count 4.53 mil/mm3 (4.50-5.90); Red Cell Distribution Width 14.2 % (11.6-17.2); White Blood Count 7.9 th/mm3 (4.0-11.0)
[2018-06-27 08:09] LABS: Anion Gap 7 meq/L (5-15); Blood Urea Nitrogen 27 mg/dL (7-18); Calcium 8.9 mg/dL (8.5-10.1); Carbon Dioxide 26.3 meq/L (21.0-32.0); Chloride 104 meq/L (98-107); Glomerular Filtration Rate 55 mL/min (>89); Glucose,Random 124 mg/dL (74-106); Potassium 3.7 meq/L (3.5-5.1); Sodium 137 meq/L (136-145)
[2018-06-27 08:10] LABS: Cholesterol 167 mg/dL (120-200)
[2018-06-27 08:14] LABS: Chol/HDL Ratio 3.65 Ratio; Creatine Kinase 103 U/L (39-308); HDL Cholesterol 45.7 mg/dL (40.0-60.0); LDL Cholesterol,Calculated 96 mg/dL (0-99); Triglycerides 127 mg/dL (42-150)
[2018-06-27] MEDS ORDERED: LORazepam 1 MG Tablet PO ONE (08:19)
[2018-06-27 08:23] VITALS: RESP 18
--- NOTE | 2018-06-27 08:43 | P.PNIM ---
Subjective Interval history: Pt feels that his speech is improving but not back to baseline Swallowing without difficulty Pt is planned for repeat Head CT this morning He is ambulating without difficulty Physical Exam Vital signs: Vital Signs 06/26/18 10:55 06/26/18 11:04 06/26/18 15:04 Temperature 98.9 F Pulse Rate 79 68 Respiratory Rate 18 16 Blood Pressure 157/88 H 134/84 Pulse Oximetry 100 98 06/26/18 20:00 06/27/18 00:00 06/27/18 04:00 Temperature 98.7 F 98.5 F 98.3 F Pulse Rate 81 78 80 Respiratory Rate 16 16 17 Blood Pressure 126/79 128/75 134/85 Pulse Oximetry 97 99 96 06/27/18 06:35 06/27/18 08:00 Temperature 98.2 F Pulse Rate 66 79 Respiratory Rate 18 Blood Pressure 135/86 Pulse Oximetry 98 Intake & Output 06/26/18 06/27/18 06/27/18 18:59 06:59 18:59 Weight 92.986 kg Other: Date of Last Bowel Movement 06/25/18 Narrative: GENERAL: NAD, AAOx3 CARDIO: Irregularly irregular, rate controlled RESP: CTA bilaterally. No accessory muscle use. ABD: +BS, soft, non-tender, nondistended. EXT: No cyanosis, or edema. BACK: Nontender without obvious deformity. No CVA tenderness. Results - Labs CBC & Chem 7: 06/27/18 07:07 06/27/18 07:07 Laboratory Results - last 24 hr 06/26/18 06/26/18 06/26/18 10:55 10:55 10:55 WBC 8.9 RBC 4.86 Hgb 15.4 POC Hgb (Calc) Hct 44.4 POC Hct MCV 91.3 MCH 31.6 MCHC 34.6 RDW 14.8 Plt Count 258 MPV 8.4 Neut % (Auto) 72.3 H Lymph % (Auto) 16.3 [place] % (Auto) 7.3 Eos % (Auto) 3.4 Baso % (Auto) 0.7 Neut # (Auto) 6.4 Lymph # (Auto) 1.5 [place] # (Auto) 0.7 Eos # (Auto) 0.3 Baso # (Auto) 0.1 WBC Differential . Differential Comment Auto diff final PT 10.6 INR 1.0 APTT 27.5 Fibrinogen 434 H POC Sodium Sodium POC Potassium Potassium POC Chloride Chloride Carbon Dioxide Anion Gap POC BUN BUN Creatinine POC Creatinine Estimated GFR POC Glucose Random Glucose Calcium Total Creatine Kinase 123 Troponin I Less than 0.02 L Triglycerides Cholesterol LDL Cholesterol, Calc HDL Cholesterol Cholesterol/HDL Ratio Blood Type Blood Type Recheck Antibody Screen 06/26/18 06/26/18 06/26/18 10:55 10:55 18:34 WBC RBC Hgb POC Hgb (Calc) 15.0 Hct POC Hct 44.0 MCV MCH MCHC RDW Plt Count MPV Neut % (Auto) Lymph % (Auto) [place] % (Auto) Eos % (Auto) Baso % (Auto) Neut # (Auto) Lymph # (Auto) [place] # (Auto) Eos # (Auto) Baso # (Auto) WBC Differential Differential Comment PT INR APTT Fibrinogen POC Sodium 138 Sodium POC Potassium 4.1 Potassium POC Chloride 102 Chloride Carbon Dioxide Anion Gap POC BUN 32 H BUN Creatinine POC Creatinine 1.8 H Estimated GFR POC Glucose 134 H 107 Random Glucose Calcium Total Creatine Kinase Troponin I Triglycerides Cholesterol LDL Cholesterol, Calc HDL Cholesterol Cholesterol/HDL Ratio Blood Type O Positive Blood Type Recheck Required Antibody Screen Negative 06/26/18 06/26/18 06/27/18 20:48 23:08 07:07 WBC RBC Hgb POC Hgb (Calc) Hct POC Hct MCV MCH MCHC RDW Plt Count MPV Neut % (Auto) Lymph % (Auto) [place] % (Auto) Eos % (Auto) Baso % (Auto) Neut # (Auto) Lymph # (Auto) [place] # (Auto) Eos # (Auto) Baso # (Auto) WBC Differential Differential Comment PT INR APTT Fibrinogen POC Sodium Sodium 137 POC Potassium Potassium 3.7 POC Chloride Chloride 104 Carbon Dioxide 26.3 Anion Gap 7 POC BUN BUN 27 H Creatinine 1.29 POC Creatinine Estimated GFR 55 L POC Glucose 204 H Random Glucose 124 H Calcium 8.9 Total Creatine Kinase 99 103 Troponin I Less than 0.02 L Less than 0.02 L Triglycerides 127 Cholesterol 167 LDL Cholesterol, Calc 96 HDL Cholesterol 45.7 Cholesterol/HDL Ratio 3.65 Blood Type Blood Type Recheck Antibody Screen 06/27/18 07:07 WBC 7.9 RBC 4.53 Hgb 14.3 POC Hgb (Calc) Hct 40.6 POC Hct MCV 89.6 MCH 31.5 MCHC 35.1 RDW 14.2 Plt Count 218 MPV 8.7 Neut % (Auto) 73.0 H Lymph % (Auto) 15.7 [place] % (Auto) 6.9 Eos % (Auto) 3.8 Baso % (Auto) 0.6 Neut # (Auto) 5.8 Lymph # (Auto) 1.2 [place] # (Auto) 0.5 Eos # (Auto) 0.3 Baso # (Auto) 0.0 WBC Differential . Differential Comment Auto diff final PT INR APTT Fibrinogen POC Sodium Sodium POC Potassium Potassium POC Chloride Chloride Carbon Dioxide Anion Gap POC BUN BUN Creatinine POC Creatinine Estimated GFR POC Glucose Random Glucose Calcium Total Creatine Kinase Troponin I Triglycerides Cholesterol LDL Cholesterol, Calc HDL Cholesterol Cholesterol/HDL Ratio Blood Type Blood Type Recheck Antibody Screen - Imaging Impressions Chest X-Ray 06/26/18 11:04 CONCLUSION: Minimal left basilar atelectasis. Head CT 06/26/18 11:04 CONCLUSION: 1. Mild to moderate periventricular and subcortical white matter small vessel ischemic changes bilaterally. 2. Old lacunar infarcts involving the left lopes radiata and basal ganglia. 3. Old lacunar infarct involving the right cesar. 4. Mild stable cerebral atrophy. 5. No acute infarct, acute hemorrhage, midline shift or extra-axial bleed. Report was called by Dr. Mahoney to Dr. Macdonald at 11:22 AM on 06/26/2018. Head CTA 06/26/18 11:04 CONCLUSION: 1. Dense atherosclerotic calcification of the distal internal carotid arteries at skull base. 2. Otherwise, intracranial vessels are all patent without embolic event to explain current clinical symptoms. 3. Results were called to Dr. Hernandez at the time of this dictation Neck CTA 06/26/18 11:04 CONCLUSION: 1. At the proximal left internal carotid artery there is moderate plaque formation with 40-50% stenosis, not hemodynamically significant. 2. At the proximal right internal carotid artery there is mild plaque formation with less than 30% stenosis. 3. Both vertebral arteries are patent, dominant right. Assessment and Plan - Assessment (1) Transient cerebral ischemia Code(s): G45.9 - Transient cerebral ischemic attack, unspecified Status: Acute Plan: TIA, possible stroke Hx of CVA - Pt is a 68 y/o WM with atrial fibrillation s/p cardioversion x 2, diabetes, hypertension, hypothyroidism, and prior history of CVA in 10/2017 and is on Eliquis - He presented to the ED at with a chief complaint of dysarthria and left sided facial droop and left UE weakness which developed approximately 30 mins prior to arrival in the ED. He was brought to the ED as a stroke alert. - Neurology has been consulted - Head CT (06/26/18) - Mild to moderate periventricular and subcortical white matter small vessel ischemic changes bilaterally - Old lacunar infarcts involving the left lopes radiata and basal ganglia - Old lacunar infarct involving the right cesar - Mild stable cerebral atrophy, but no acute infarct, acute hemorrhage, midline shift or extra-axial bleed. - Head CTA (06/26/18) - Dense atherosclerotic calcification of the distal internal carotid arteries at skull base - Otherwise, intracranial vessels are all patent without embolic event to explain current clinical symptoms. - Neck CTA (06/26/18) - The proximal left internal carotid artery there is moderate plaque formation with 40-50% stenosis, not hemodynamically significant - The proximal right internal carotid artery there is mild plaque formation with less than 30% stenosis - Both vertebral arteries are patent, dominant right. - Pt is refusing an MRI of the brain due to severe claustrophobia. He states that the only time has has been able to tolerating having an MRI performed he had to be sedated with Versed. - Pt noted to be in A. fib, rate controlled. - Pt is refusing Lipitor - HOB flat can be lifted - Permissive HTN - Pt passed bedside swallow evaluation - ST to evaluate for dysarthria - PT/OT - Telemetry - Neuro checks - Supportive care - Cont. Eliquis - Pt took ASA prior to arrival in the ED, continue ASA 81mg po daily - Pt to have a repeat Head CT this morning as he refused MRI Atrial fibrillation - As above. - Rate controlled. - Eliquis resumed. Diabetes mellitus Diabetic nephropathy - Hgb A1c 8.5% in 10/2017, repeat pending. - NovoLog sliding scale insulin. - Levemir 10 units Q12H - Accu checks Hypertension - Pt currently being allowed permissive hypertension with parameters. Postlaminectomy syndrome - Continue home medication Hypothyroidism - Continue medication Hyperlipidemia - Pt refusing statin Anxiety - Continue home medication acute cva..left facial droop resolved with persistent mild dysarthria. dc home with hhc/st. discussed with his outpt neurologist dr Ibanez. Dr Hernandez and Dr Ibanez recommended eliquis and add aSA. PT REFUSED STATIN. REFUSED MRI. F/U PCP ALSO. CALLED PCP. PT INSTRUCTED TO ADD BACK BP MEDS SLOWLY. (1) Transient cerebral ischemia Qualifiers: Transient cerebral ischemia type: unspecified Qualified Code(s): G45.9 - Transient cerebral ischemic attack, unspecified
[2018-06-27] MEDS ORDERED: Sertraline 50 MG Tablet PO SCH (09:00)
[2018-06-27] MEDS: Insulin NovoLOG Aspart Correctional Sugar Inj SQ SCH ×2 (09:00→13:23)
[2018-06-27 09:09] LABS: Albumin 3.7 g/dL (3.4-5.0)
[2018-06-27 09:10] LABS: Total Protein 7.2 g/dL (6.4-8.2)
[2018-06-27] MEDS: Sod Chloride 0.9% Inj 1,000 ML IV.CONT SCH (09:20)
[2018-06-27] MEDS: Senna/Docusate Sodium 8.6/50 MG Tablet PO SCH (09:21)
[2018-06-27] MEDS: Insulin Detemir Inj 1,000 UNIT/10 ML Vial SQ SCH (09:21)
--- NOTE | 2018-06-27 11:33 | CT ---
EXAM DATE: 06/27/2018 11:24 AM EDT AGE/SEX: 68 years / Male INDICATIONS: Follow up CVA CLINICAL DATA: This is the patient's initial encounter. Patient reports that signs and symptoms have been present for 1 day and indicates a pain score of 0/10. MEDICAL/SURGICAL HISTORY: Diabetes. Cerebrovascular disease. Thyroidectomy. RADIATION DOSE: 56.35 CTDI (mGy) COMPARISON: [facility] [place], CTA HEAD W CONTRAST W 3D, 06/26/2018. C, CT HEAD W/O CONTRAST, 06/26/2018. C , CT BRAIN W/O CONTRAST, 11/05/2017. . TECHNIQUE: CT of the head without contrast. Using automated exposure control and adjustment of the mA and/or kV according to patient size, radiation dose was kept as low as reasonably achievable to ob tain optimal diagnostic quality images. DICOM format image data is available electronically for revi ew and comparison. FINDINGS: Cerebrum: The ventricles are normal for age. No evidence of midline shift, mass lesion, hemorrhage or acute infarction. No extraaxial fluid collections are seen. Old infarct seen left lopes radiata/ basal ganglia and right cesar. Mild chronic white matter changes are again noted. Posterior Fossa: The cerebellum and brainstem are intact. The 4th ventricle is midline. The cerebe llopontine angle is unremarkable. Extracranial: The visualized portion of the orbits is intact. Skull: The calvaria is intact. No evidence of skull fracture. CONCLUSION: 1. No acute abnormality or significant change. No evidence of an acute or subacute infarct. 2. Old lacunar infarcts as above. . Electronically signed by: Dale Ward MD 06/27/2018 11:31 AM EDT
[2018-06-27 13:25] VITALS: PULSE 89
--- NOTE | 2018-06-27 15:47 | P.DCO ---
- Diagnosis (1) Transient cerebral ischemia - Physical Therapy Order: Evaluate and treat, Improve ambulation, Strength and gait training - Occupational Therapy Order: Evaluate and treat, Improve ADL, Gross motor coordination, Fine motor coordination - Speech Therapy Order: To improve: Speech and communication skills, Cognitive skills - Home Health Nursing Order: Medical education, Signs/symptoms of disease process, Nursing assessment with vital signs Instructions: Resume the Amlodipine and Atenolol on 05/29/18. Resume the Losartan- HCTZ on Sunday05/31/18, as long as systolic BP is at 130 or higher. Monitor BP and HR at least once daily and record readings to provide to your PCP - Certification I have seen patient Sherman Guerrero on 06/27/18. My clinical findings support the need for the requested home health care services because: Deconditioned with increased weakness I certify that my clinical findings support that this patient is homebound because: Unsteady gait/balance (1) Transient cerebral ischemia Qualifiers: Transient cerebral ischemia type: unspecified Qualified Code(s): G45.9 - Transient cerebral ischemic attack, unspecified
[2018-06-27 16:52] VITALS: BP 151/85; TEMP 97.6; O2SAT 97
[2018-06-27 17:31] LABS: Hemoglobin A1c 6.7 % (4.3-6.0)
== END 2018-06-27 18:09 | disposition home health service (06) ==
LOC: NEDA 10:51 → NEPFCDU 10:51 → NEPE 10:51 → NEPFCDU 17:11
PROVIDERS: ADMIT Hospitalist; ATTEND Hospitalist

== ENCOUNTER 2018-09-18 01:29 | Inpatient (IN) ==
--- NOTE | 2018-09-18 02:04 | ED ---
HPI General Chief complaint: Neuro Symptoms/Deficit Stated complaint: medical complaint Time Seen by Provider: 09/18/18 01:44 Source: patient Mode of arrival: ambulatory Limitations: no limitations History of Present Illness HPI narrative: The patient is a 68 year old male who presents to the [facility] emergency department with a history of reportedly not feeling well for the last 2 days. He reports that on Sunday he had a severe headache over his forehead. He reports that since then the headache has resolved. He reports that he is on tramadol for arthritic pains in his shoulders, this is the only medication that he took for his headache. He denies having any nausea or vomiting associated with this. He reports that he felt like he had a subjective fever on Sunday, however he has not had any feelings that he had a fever since then. He denies having any cough, congestion, rhinorrhea, or sore throat associated with this. He reports that he has noticed that he has had increased difficulty walking over the last 2 days. His family member at the bedside reports that he has been shuffling when he walks. The patient has a history of multiple prior strokes and is on Eliquis for his history of prior strokes and atrial fibrillation. He reports that he has been compliant with taking the medication as prescribed. He reports that his neurologist is Dr. Ibanez. Yesterday he called to Dr. Ibanez's office to schedule an appointment, however he has not heard back. He denies having any recent diarrhea. He reports that his last bowel movement was yesterday. On review of systems otherwise, the patient denies having any neck pain, chest pain, shortness of breath, abdominal pain, diarrhea, urinary symptoms, visual changes, new facial droop, difficulty with word finding ability, or new numbness or tingling to his extremities. His family member at the bedside reports that his speech seems to be more slurred than previously. Related Data Home Medications Medication Instructions Recorded Confirmed apixaban [Eliquis] 5 mg PO BID 06/26/18 09/18/18 fluticasone [Allergy Relief 2 spray INTRANASAL DAILY 06/26/18 09/18/18 (fluticasone)] insulin degludec [Tresiba 30 unit SUB-Q HS 06/26/18 09/18/18 FlexTouch U-100] levothyroxine 150 mcg PO DAILY 06/26/18 09/18/18 liraglutide [Victoza 3-Darron] 1.2 mg SUB-Q DAILY 06/26/18 09/18/18 tramadol 50 mg PO Q6H PRN 06/26/18 09/18/18 rosuvastatin 5 mg PO DAILY 07/18/18 09/18/18 pantoprazole [Protonix] 40 mg PO DAILY 09/18/18 09/18/18 Previous Rx's Medication Instructions Recorded amlodipine 5 mg PO DAILY #0 tab 06/27/18 aspirin 81 mg PO DAILY tab 06/27/18 atenolol 25 mg PO DAILY #0 tab 06/27/18 Allergies Allergy/AdvReac Type Severity Reaction Status Date / Time doxycycline Allergy Severe Hives Verified 09/18/18 01:39 minocycline Allergy Severe Hives Verified 09/18/18 01:39 tigecycline Allergy Severe Hives Verified 09/18/18 01:39 benazepril AdvReac Severe PT Verified 09/18/18 01:39 ALLERGIC TO LOTREL Review of Systems ROS: all other systems reviewed are negative [facility] Medical History Medical History Afib (Acute) Arthritis (Acute) High blood pressure (Acute) Diabetes (Acute) Duodenal ulcer (Acute) Graves disease (Acute) H/O endoscopy (Acute) Stroke (Acute) Surgical History Surgical History History of thyroidectomy (Acute) Social History Social History Substance History: No History of Abuse Second Hand Smoke Exposure: Yes Smoking Status: Former smoker Tobacco Type: Cigarettes Smoking End Date: Quit 4-5 years ago How Often Do You Have a Drink Containing Alcohol: 2 to 4 times a month Recent Travel in [facility] [[email or web address] within the Last 8 Weeks: No Recent Out of Country Travel within the Last 8 Weeks: No Immunization History Tetanus Immunization: <5 Years Exam Const General: cooperative, no acute distress and well developed Nutritional Appearance: well nourished Orientation: alert, awake and oriented x3 HENMT Head: normocephalic and atraumatic Nose: no nasal discharge and no epistaxis Mouth: moist mucous membranes Throat: posterior oropharynx normal and uvula midline Eyes Sclera: normal sclerae Pupils: PERRL Neck Neck: no meningeal signs, trachea midline and no JVD Resp Effort & Inspection: no use of accessory muscles Auscultation: clear to auscultation bilaterally Cardio Rate: regular rate Rhythm: abnormal rhythm (In a patient with a history of atrial fibrillation per ) irregularly irregular Heart Sounds: no gallops, no murmurs and no rubs GI Inspection: non-distended Palpation: soft, no hepatosplenomegaly, no guarding, not rigid and nontender Auscultation: normal bowel sounds Back/Spine/Pelvis Back: no CVA tenderness Skin General: dry skin (warm) Neuro General: alert, awake and oriented x3 Cranial Nerves: CN's II-XI intact bilaterally and EOM intact bilaterally Speech: speech normal Motor: no movement abnormalities noted and strength abnormal (The patient has strength that is 5/5 in bilateral upper extremities. The patient has strength that is 4/5 in the right lower extremity, 5/5 in the left lower extremity.) Sensory Exam: no sensory deficits noted Extrem General: normal to inspection (2+ pulses in all 4 extremities.), no calf tenderness, no clubbing, no cyanosis and no edema Psych Mood: congruent mood Affect: normal affect Judgment: judgment good Course Consultations Consultation #1: The patient's case including history, pertinent physical examination findings, and laboratory studies were discussed with Dr. Whyte. It was agreed that the patient would be admitted to the [facility] hospitalist service. Consultation #2: The patient's case including history, pertinent physical examination findings, and laboratory studies were discussed with Dr. Leon. He did not recommend any changes of the patient's current medication regimen at this time. He will reviewed the record and changes will be made in the morning if deemed necessary. Time: 04:30 Initial Documented Vital Signs Temperature 98.8 F 09/18/18 01:35 Pulse Rate 95 H 09/18/18 01:35 Respiratory Rate 20 09/18/18 01:35 Blood Pressure 165/95 H 09/18/18 01:35 Pulse Oximetry 96 09/18/18 01:35 Last Documented Vital Signs Temperature 98.8 F 09/18/18 01:35 Pulse Rate 86 09/18/18 07:08 Respiratory Rate 20 09/18/18 07:08 Blood Pressure 129/79 09/18/18 07:08 Pulse Oximetry 99 09/18/18 07:08 NIH Stroke Scale NIH Stroke Scale Level of Consciousness: 0-Alert Orientation Questions: 0-Answers both correct Responds to Commands: 0-Both tasks correct Gaze Eye Movement: 0-Horizontal movement WNL Visual Taylor: 0-No visual field defect Facial Movement: 0-Normal Motor Functions Arm LEFT: 0-No drift Motor Functions Arm RIGHT: 0-No drift Motor Functions Leg LEFT: 0-No drift Motor Functions Leg RIGHT: 1-Drift before 5 seconds Limb Ataxia: 0-No ataxia Sensory Loss: 0-No sensory loss Best Language: 0-Normal Articulation: 0-Normal Extinction or Inattention Sensory: 0-Absent Total: 1 Quality Measure Queries Stroke Last date observed well: 09/16/18 Symptom Onset Unknown: No Comment Thrombolytic Contraindications: The patient is out of the timeframe for TPA administration. The patient additionally reports that he has been taking Eliquis and low-dose aspirin. Medical Decision Making MDM Narrative Medical decision making narrative: During the course of the patient's emergency department visit, the patient's history, examination, and differential diagnosis were reviewed with the patient. The patient was placed on a cardiac rehab nurse with oximetry and frequent blood pressure monitoring. The patient had IV access obtained and blood work sent for analysis. A diagnostic evaluation was started regarding the patient's reported headache on Sunday, right lower extremity weakness on examination, reported shuffling gait since Sunday. The patient's electronic medical record was reviewed. The patient does have a prior history of atrial fibrillation and a prior CTA of the neck that revealed proximal left internal carotid artery that has moderate plaque formation with 40 -50% stenosis, proximal right internal carotid artery with mild plaque formation with less than 30% stenosis. The patient has refused MRI in the past. The patient was initially refusing CT scan of the brain, however the patient agreed to doing the scan with anxiolytic administration. The patient was given Ativan 1 mg IV. Patient's diagnostic studies are remarkable for a white count of 7, hemoglobin 13.1, platelets are 185 with 78.2 neutrophils, PT 1011.6, PTT 32.3, chemistry is remarkable for sodium of 134, BUN 21, creatinine 1.49, glucose 141, AST 47, CHEST X-RAY: No infiltrate, pneumothorax or mediastinal widening. Showed no acute cardiopulmonary disease, CT scan of the brain showed no acute intracranial abnormality, chronic white matter changes. The patient's case including history, pertinent physical examination findings, and laboratory studies were discussed with Dr. Whyte and Dr. Leon. It was agreed that the patient would be admitted to the [facility] hospitalist service. The patient's results were discussed with the patient, including the plan of care. I explained that further testing and/ or monitoring is indicated based on the patient's history, examination, and/ or laboratory findings. Therefore, I recommended admission for additional evaluation. The patient expressed understanding and was agreeable with this plan. The patient was admitted to the hospital in guarded condition and sent to a bed under the care of [facility] hospitalist service. Medical Screen Exam Complete: Yes Emergency Medical Condition: Yes Differential Diagnosis Differential Diagnosis: Hemorrhagic stroke, versus ischemic stroke, versus TIA, versus new neurologic exacerbation related to UTI, versus other infectious process Medical Records Medical records reviewed: Yes I reviewed the patient's medical records. Lab Data Lab results reviewed: Yes I reviewed the patient's lab results. Result diagrams: 09/18/18 02:08 09/18/18 02:08 Lab Results 09/18/18 09/18/18 09/18/18 Range/Units 02:08 02:08 02:08 WBC 7.0 (4.0-11.0) th/mm3 RBC 4.72 (4.50-5.90) mil/mm3 Hgb 13.1 (13.0-17.0) gm/dL Hct 39.7 (39.0-51.0) % MCV 84.1 (80.0-100.0) fL MCH 27.7 (27.0-34.0) pg MCHC 32.9 (32.0-36.0) % RDW 15.3 (11.6-17.2) % Plt Count 185 (150-450) th/mm3 MPV 8.5 (7.0-11.0) fL Neut % (Auto) 78.2 H (16.0-70.0) % Lymph % (Auto) 11.3 (9.0-44.0) % [place] % (Auto) 8.0 (0.0-8.0) % Eos % (Auto) 1.7 (0.0-4.0) % Baso % (Auto) 0.8 (0.0-2.0) % Neut # (Auto) 5.5 (1.8-7.7) th/mm3 Lymph # (Auto) 0.8 L (1.0-4.8) th/mm3 [place] # (Auto) 0.6 (0.0-0.9) th/mm3 Eos # (Auto) 0.1 (0.0-0.4) th/mm3 Baso # (Auto) 0.1 (0.0-0.2) th/mm3 WBC Differential . Differential Comment Auto diff final PT 11.6 (9.8-11.6) sec INR 1.1 Ratio APTT 32.3 H (24.3-30.1) sec Sodium 134 L (136-145) meq/L Potassium 4.3 (3.5-5.1) meq/L Chloride 99 (98-107) meq/L Carbon Dioxide 24.2 (21.0-32.0) meq/L Anion Gap 11 (5-15) meq/L BUN 21 H (7-18) mg/dL Creatinine 1.49 H (0.60-1.30) mg/dL Estimated GFR 47 L (>89) mL/min Random Glucose 141 H (74-106) mg/dL Calcium 8.8 (8.5-10.1) mg/dL Total Bilirubin 1.0 (0.2-1.0) mg/dL AST 47 H (15-37) U/L ALT 27 (12-78) U/L Alkaline Phosphatase 100 (45-117) U/L Total Creatine Kinase 287 (39-308) U/L CK-MB (CK-2) 1.4 (0.5-3.6) ng/mL Troponin I 0.02 (0.02-0.05) ng/mL Total Protein 7.6 (6.4-8.2) g/dL Albumin 3.6 (3.4-5.0) g/dL Imaging Data Radiologist's impression: Chest X-Ray 09/18/18 02:04 CONCLUSION: No acute cardiopulmonary disease demonstrated. Very mild left base scarring again seen. Head CT 09/18/18 02:04 CONCLUSION: 1. No acute intracranial abnormality demonstrated. 2. Chronic white matter changes. . ECG Data Attestation: I personally reviewed and interpreted this ECG as follows: Interpretation: The patient has an EKG done on arrival that shows atrial fibrillation heart rate of 92, QRS duration 149 ms, right bundle branch block is noted, QTC [address] segment elevation. Moderate T wave abnormalities are noted, involving multiple leads. Discharge Plan Discharge Disposition Patient Disposition: 30 Still Patient Discharge Details Diagnosis: Right leg weakness Physicians Team ED Provider: Samia Anand Primary Care Provider: Primary Care Tiffanie Thomas Attending Provider: Triston Shore Status ED Status: Admitted Patient
[2018-09-18] MEDS ORDERED: Sod Chloride 0.9% Inj 1,000 ML IV.CONT SCH (02:15)
[2018-09-18 02:21] LABS: Baso # (Auto) 0.1 th/mm3 (0.0-0.2); Baso % (Auto) 0.8 % (0.0-2.0); Eos # (Auto) 0.1 th/mm3 (0.0-0.4); Eos % (Auto) 1.7 % (0.0-4.0); Hematocrit 39.7 % (39.0-51.0); Hemoglobin 13.1 gm/dL (13.0-17.0); Lymph # (Auto) 0.8 th/mm3 (1.0-4.8); Lymph % (Auto) 11.3 % (9.0-44.0); Mean Corpuscular HGB Conc 32.9 % (32.0-36.0); Mean Corpuscular Hemoglobin 27.7 pg (27.0-34.0); Mean Corpuscular Volume 84.1 fL (80.0-100.0); Mean Platelet Volume 8.5 fL (7.0-11.0); Mono # (Auto) 0.6 th/mm3 (0.0-0.9); Neut # (Auto) 5.5 th/mm3 (1.8-7.7); Neut % (Auto) 78.2 % (16.0-70.0); Platelet Count 185 th/mm3 (150-450); Red Blood Count 4.72 mil/mm3 (4.50-5.90); Red Cell Distribution Width 15.3 % (11.6-17.2)
[2018-09-18 02:32] LABS: Activated Partial Thrombo Time 32.3 sec (24.3-30.1); INR 1.1 Ratio; Prothrombin Time 11.6 sec (9.8-11.6)
--- NOTE | 2018-09-18 02:45 | XR ---
EXAM DATE: 09/18/2018 2:29 AM EDT AGE/SEX: 68 years / Male INDICATIONS: Cough. CLINICAL DATA: This is the patient's initial encounter. Patient reports that signs and symptoms have been present for 1 day and indicates a pain score of 0/10. MEDICAL/SURGICAL HISTORY: None. Fusion, cervical. COMPARISON: [facility], CT CHEST W/O CONTRAST, 12/21/2017. [facility], CHEST 1V SINGLE AP, 06/26/2018. . FINDINGS: No infiltrate, effusion or pneumothorax. Trace left base scarring unchanged. Heart size stable, within normal limits. Thoracic aorta is mildly tortuous. CONCLUSION: No acute cardiopulmonary disease demonstrated. Very mild left base scarring again seen. Electronically signed by: Dale Ward MD 09/18/2018 2:44 AM EDT
[2018-09-18 02:52] LABS: Alanine Aminotransferase 27 U/L (12-78); Albumin 3.6 g/dL (3.4-5.0); Alkaline Phosphatase 100 U/L (45-117); Anion Gap 11 meq/L (5-15); Aspartate Aminotransferase 47 U/L (15-37); Blood Urea Nitrogen 21 mg/dL (7-18); Calcium 8.8 mg/dL (8.5-10.1); Carbon Dioxide 24.2 meq/L (21.0-32.0); Chloride 99 meq/L (98-107); Creatine Kinase 287 U/L (39-308); Glomerular Filtration Rate 47 mL/min (>89); Glucose,Random 141 mg/dL (74-106); Potassium 4.3 meq/L (3.5-5.1); Sodium 134 meq/L (136-145); Total Protein 7.6 g/dL (6.4-8.2); Troponin I 0.02 ng/mL (0.02-0.05)
[2018-09-18 03:10] LABS: Creatine Kinase MB 1.4 ng/mL (0.5-3.6)
--- NOTE | 2018-09-18 03:10 | CT ---
EXAM DATE: 09/18/2018 2:45 AM EDT AGE/SEX: 68 years / Male INDICATIONS: Slurred speech / weakness. CLINICAL DATA: This is the patient's initial encounter. Patient reports that signs and symptoms have been present for 1 day and indicates a pain score of 0/10. MEDICAL/SURGICAL HISTORY: Hypertension. Diabetes. Cardiovascular disease. CVA Thyroidectomy. RADIATION DOSE: 56.35 CTDI (mGy) COMPARISON: [facility] [place], 06/27/2018. . TECHNIQUE: CT of the head without contrast. Using automated exposure control and adjustment of the mA and/or kV according to patient size, radiation dose was kept as low as reasonably achievable to ob tain optimal diagnostic quality images. DICOM format image data is available electronically for revi ew and comparison. FINDINGS: Cerebrum: The ventricles are normal for age. No evidence of midline shift, mass lesion, hemorrhage or acute infarction. No extraaxial fluid collections are seen. Old 12 mm left periventricular white matter lacunar infarct again noted. There is chronic low-attenuation diffusely in the rest of the per iventricular white matter. Posterior Fossa: The cerebellum and brainstem are intact. The 4th ventricle is midline. The cerebe llopontine angle is unremarkable. Extracranial: The visualized portion of the orbits is intact. Skull: The calvaria is intact. No evidence of skull fracture. CONCLUSION: 1. No acute intracranial abnormality demonstrated. 2. Chronic white matter changes. . Electronically signed by: Dale Ward MD 09/18/2018 3:09 AM EDT
[2018-09-18 07:37] LABS: Bilirubin,Urine Negative (Negative); Color,Urine Yellow (Yellw/Straw); Glucose,Urine (UA) Negative (Negative); Leukocyte Esterase,Urine Negative (Negative); Mucus,Urine Few /lpf (Occasional); Nitrite,Urine Negative (Negative); Specific Gravity,Urine 1.009 (1.002-1.035); Squamous Epithelial Cell,Urine <1 /hpf (0-5)
[2018-09-18] MEDS ORDERED: Acetaminophen 325 MG Tablet PO PRN (08:11)
--- NOTE | 2018-09-18 08:23 | P.HPIM ---
History of Present Illness Service: [facility] Hospitalist Services Primary Care Physician: Dr. Santy Hilton Chief Complaint: Weakness, speech difficulty History of Present Illness: Mr. Guerrero is a 68 y/o male with atrial fibrillation, diabetes, hypertension, hypothyroidism and CVA who [place] [facility] with complaints of difficulty ambulating and some reported slurred speech. He does have a prior history of CVA in 10/2017 and has been on Eliquis and was recently admitted [place] [facility] with similar complaints at that time and seen by Neurology and ASA 81mg daily was added to his regimen. At that time he was evaluated then with Head CT which noted mild to moderate periventricular and subcortical white matter small vessel ischemic changes bilaterally, old lacunar infarcts involving the left lopes radiata and basal ganglia, old lacunar infarct involving the right cesar, mild stable cerebral atrophy, but no acute infarct, acute hemorrhage, midline shift or extra -axial bleed. Head CTA (06/26/18) noted dense atherosclerotic calcification of the distal internal carotid arteries at skull base; otherwise, intracranial vessels are all patent without embolic event to explain current clinical symptoms. Neck CTA (06/26/18) noted the proximal left internal carotid artery there is moderate plaque formation with 40-50% stenosis, not hemodynamically significant, the proximal right internal carotid artery there is mild plaque formation with less than 30% stenosis, and both vertebral arteries are patent, dominant right. Pt refused an MRI of the brain due to severe claustrophobia. When he presented to the ED on 09/18/18 his reported that two days ago he had a severe headache in the frontal area which kept him in bed most of the day that day. Then yesterday he felt more generally weak and had to use a cane to ambulate. He reports that he has had issues with right sided weakness since his previous strokes in 10/2017 but that he felt that his RUE and RLE were more weak yesterday. His wofe also noted some difficulty with speech and some recall/ cognition issues yesterday. They tried to call his Neurologist, Dr. Ibanez, on Sunday but was unable to speak with anyone at that time. Pt had a repeat CT head (09/18/18) in the ED which noted no acute intracranial abnormality demonstrated and chronic white matter changes. Past Medical History Anxiety Atrial fibrillation CVA BPH COPD Diabetic nephropathy Lumbar degenerative disc disease GERD Hypertension Hyperlipidemia Hypothyroidism Obesity Postlaminectomy syndrome Psoriasis History of SVT 2D echo (11/06/17) - In limited views, the left ventricular systolic function is normal with an estimated ejection fraction in the range of 55-60%. - Mild concentric left ventricular hypertrophy Past Surgical History Colonic resection in 2008 for diverticulitis and colitis Incisional hernia repair Anterior cervical fusion Paravertebral nerve block Lumbar Spinal discectomy Last colonoscopy November 2014 revealed some signs of possible colitis and low- grade adenomatous polyp Family History Sister had some form of brain cancer Mother in her 80s of dementia but apparently had history of kidney cancer Father in his 80s and had apparently some dementia, possibly history of stroke but is unsure. 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 Originally from [place], moved here approximately 30 years ago Diagnosis (1) Transient cerebral ischemia: (2) CVA (cerebral vascular accident): (3) HTN (hypertension): (4) Diabetes: (5) A-fib: (6) Right leg weakness: Medications and Allergies Allergies Allergy/AdvReac Type Severity Reaction Status Date / Time doxycycline Allergy Severe Hives Verified 09/18/18 01:39 minocycline Allergy Severe Hives Verified 09/18/18 01:39 tigecycline Allergy Severe Hives Verified 09/18/18 01:39 benazepril AdvReac Severe PT Verified 09/18/18 01:39 ALLERGIC TO LOTREL Home Medications Medication Instructions Recorded Confirmed Type apixaban [Eliquis] 5 mg PO BID 06/26/18 09/18/18 History fluticasone [Allergy Relief 2 spray INTRANASAL DAILY 06/26/18 09/18/18 History (fluticasone)] insulin degludec [Tresiba 30 unit SUB-Q HS 06/26/18 09/18/18 History FlexTouch U-100] levothyroxine 150 mcg PO DAILY 06/26/18 09/18/18 History liraglutide [Victoza 3-Darron] 1.2 mg SUB-Q DAILY 06/26/18 09/18/18 History tramadol 50 mg PO Q6H PRN 06/26/18 09/18/18 History rosuvastatin 5 mg PO DAILY 07/18/18 09/18/18 History pantoprazole [Protonix] 40 mg PO DAILY 09/18/18 09/18/18 History Active Medications: Active Medications Sodium Chloride (Ns Inj) 1,000 mls @ 70 mls/hr IV.CONT .[id number] DILMA Stop: 09/18/18 16:32 Last Admin: 09/18/18 02:58 Dose: 70 mls/hr Sodium Chloride (Ns Flush) 2 ml IV.FLUSH PRN PRN PRN Reason: FLUSH AFTER USING IV ACCESS Physical Exam Vital signs: Last Vital Signs Temp 98.8 F 09/18/18 01:35 Pulse 86 09/18/18 07:08 Resp 20 09/18/18 07:08 BP 129/79 09/18/18 07:08 Pulse Ox 99 09/18/18 08:02 Narrative: GENERAL: NAD, AAOx3 SKIN: Warm and dry. HEENT: Atraumatic. Normocephalic. Pupils equal and round. No scleral icterus. No injection or drainage. No nasal bleeding or discharge. Mucous membranes pink and moist. NECK: Trachea midline. No JVD. CARDIOVASCULAR: Irregularly irregular RESPIRATORY: No accessory muscle use. Clear to auscultation. Breath sounds equal bilaterally. GASTROINTESTINAL: Abdomen soft, non-tender, nondistended. Hepatic and splenic margins not palpable. MUSCULOSKELETAL: Extremities without clubbing, cyanosis, or edema. No obvious deformities. NEUROLOGICAL: Awake and alert. No obvious cranial nerve deficits. Motor grossly within normal limits. Decreased strength in the RUE and RLE compared to the left. Normal speech but somewhat slowed. PSYCHIATRIC: Appropriate mood and affect; insight and judgment normal. Results Labs CBC & Chem 7: 09/18/18 09:58 09/18/18 09:58 Imaging Chest X-Ray 09/18/18 02:04 CONCLUSION: No acute cardiopulmonary disease demonstrated. Very mild left base scarring again seen. Head CT 09/18/18 02:04 CONCLUSION: 1. No acute intracranial abnormality demonstrated. 2. Chronic white matter changes. . Caprini VTE Risk Assessment Caprini VTE Risk Assessment: Moderate/High Risk (score >= 2) Caprini Risk Assessment Model: Point Value = 1 Point Value = 2 Point Value = 3 Point Value = 5 Age 41-60 Minor surgery BMI > 25 kg/m2 Swollen legs Varicose veins or History of unexplained or recurrent spontaneous Oral contraceptives or hormone replacement Sepsis (< 1 month) Serious lung disease, including pneumonia (< 1 month) Abnormal pulmonary function Acute myocardial infarction Congestive heart failure (< 1 month) History of inflammatory bowel disease Medical patient at bed rest Age 61-74 Arthroscopic surgery Major open surgery (> 45 min) Laparoscopic surgery (> 45 min) Malignancy Confined to bed (> 72 hours) Immobilizing plaster cast Central venous access Age >= 75 History of VTE Family history of VTE Factor V Leiden Prothrombin [id number] Lupus anticoagulant Anticardiolipin antibodies Elevated serum homocysteine Heparin-induced thrombocytopenia Other congenital or acquired thrombophilia Stroke (< 1 month) Elective arthroplasty Hip, pelvis, or leg fracture Acute spinal cord injury (< 1 month) Prophylaxis Regimen: Total Risk Factor Score Risk Level Prophylaxis Regimen 0-1 Low Early ambulation 2 Moderate Order ONE of the following: *Sequential Compression Device (SCD) *Heparin 5000 units SQ BID 3-4 Higher Order ONE of the following medications: *Heparin 5000 units SQ TID *Enoxaparin/Lovenox 40 mg SQ daily (WT < 150 kg, CrCl > 30 mL/min) *Enoxaparin/Lovenox 30 mg SQ daily (WT < 150 kg, CrCl > 10-29 mL/min) *Enoxaparin/Lovenox 30 mg SQ BID (WT < 150 kg, CrCl > 30 mL/min) AND/OR *Sequential Compression Device (SCD) 5 or more Highest Order ONE of the following medications: *Heparin 5000 units SQ TID (Preferred with Epidurals) *Enoxaparin/Lovenox 40 mg SQ daily (WT < 150 kg, CrCl > 30 mL/min) *Enoxaparin/Lovenox 30 mg SQ daily (WT < 150 kg, CrCl > 10-29 mL/min) *Enoxaparin/Lovenox 30 mg SQ BID (WT < 150 kg, CrCl > 30 mL/min) AND *Sequential Compression Device (SCD) Assessment and Plan Assessment (1) Transient cerebral ischemia: Code(s): G45.9 - Transient cerebral ischemic attack, unspecified Status: Acute (2) CVA (cerebral vascular accident): Code(s): I63.9 - Cerebral infarction, unspecified Status: Suspected (3) HTN (hypertension): Code(s): I10 - Essential (primary) hypertension Status: Chronic (4) Diabetes: Code(s): E11.9 - Type 2 diabetes mellitus without complications Status: Chronic (5) A-fib: Code(s): I48.91 - Unspecified atrial fibrillation Status: Chronic (6) Right leg weakness: Code(s): R29.898 - Other symptoms and signs involving the musculoskeletal system Status: Chronic Plan TIA, possible stroke Hx of CVA - Pt is a 68 y/o WM with atrial fibrillation s/p cardioversion x 2, diabetes, hypertension, hypothyroidism, and prior history of CVA in 10/2017 and is on Eliquis and was recently [place] [facility] with similar complaints at that time and seen by Neurology and ASA 81mg daily was added to his regimen which he has reportedly been compliant with. - He presented to the ED on 09/18/18 with a complaints of headache that began two days ago (frontal) and yesterday started having increased weakness on the right side and some speech difficulties. - Neurology has been consulted - Head CT (09/18/18) - No acute abnormality, chronic white matter ischemic changes. Previous Head CT (06/26/18) - Mild to moderate periventricular and subcortical white matter small vessel ischemic changes bilaterally - Old lacunar infarcts involving the left lopes radiata and basal ganglia - Old lacunar infarct involving the right cesar - Mild stable cerebral atrophy, but no acute infarct, acute hemorrhage, midline shift or extra-axial bleed. - Head CTA (06/26/18) - Dense atherosclerotic calcification of the distal internal carotid arteries at skull base - Otherwise, intracranial vessels are all patent without embolic event to explain current clinical symptoms. - Neck CTA (06/26/18) - The proximal left internal carotid artery there is moderate plaque formation with 40-50% stenosis, not hemodynamically significant - The proximal right internal carotid artery there is mild plaque formation with less than 30% stenosis - Both vertebral arteries are patent, dominant right. - Pt is again refusing an MRI of the brain due to severe claustrophobia. He states that the only time has has been able to tolerating having an MRI performed he had to be sedated with Versed. - Pt noted to be in A. fib, rate controlled. - Pt is on rosuvastatin, this will be continued - Permissive HTN - PT/OT/ST evaluation - Telemetry - Neuro checks - Cont. Eliquis and ASA and await Neurology evaluation. - Check 2D echo - Check carotid US - Supportive care - DVT prophylaxis with SCDs and Eliquis Atrial fibrillation - As above. - Rate controlled. - Eliquis resumed. Diabetes mellitus Diabetic nephropathy - Hgb A1c 6/7% on 06/27/18. - NovoLog sliding scale insulin. - May need to add Levemir depending on pts next few BS readings. - Accu checks Hypertension - Pt currently being allowed permissive hypertension with parameters. - BP stable for now Postlaminectomy syndrome - Continue home medication Hypothyroidism - Continue medication Hyperlipidemia - COnt. statin Anxiety _ (1) Diabetes Qualifiers: Chronic kidney disease stage: Diabetes mellitus complication detail: Diabetes mellitus complication status: Diabetes mellitus intermediate project manager insulin use : Diabetes mellitus macular edema: Diabetes mellitus type: Diabetic retinopathy severity: Laterality: Proliferative retinopathy type: (2) A-fib Qualifiers: Atrial fibrillation type: (3) Transient cerebral ischemia Qualifiers: Transient cerebral ischemia type: unspecified Qualified Code(s): G45.9 - Transient cerebral ischemic attack, unspecified (4) HTN (hypertension) Qualifiers: Hypertension type: (5) CVA (cerebral vascular accident) Qualifiers: CVA mechanism: Laterality of affected vessel: Precerebral and cerebral artery:
[2018-09-18 08:31] LABS: Clarity,Urine Clear (Clear)
[2018-09-18] MEDS ORDERED: Dextrose 50% in Water 50 ML Vial IV.PUSH PRN (08:44)
[2018-09-18] MEDS: Levothyroxine 150 MCG Tablet PO SCH (09:45)
[2018-09-18] MEDS: Senna/Docusate Sodium 8.6/50 MG Tablet PO SCH ×2 (09:45→20:11)
[2018-09-18 10:39] LABS: Baso % (Auto) 0.6 % (0.0-2.0); Eos # (Auto) 0.2 th/mm3 (0.0-0.4); Eos % (Auto) 3.1 % (0.0-4.0); Hematocrit 38.4 % (39.0-51.0); Hemoglobin 12.9 gm/dL (13.0-17.0); Lymph % (Auto) 15.1 % (9.0-44.0); Mean Corpuscular HGB Conc 33.5 % (32.0-36.0); Mean Corpuscular Hemoglobin 28.3 pg (27.0-34.0); Mean Corpuscular Volume 84.6 fL (80.0-100.0); Mean Platelet Volume 8.5 fL (7.0-11.0); Mono # (Auto) 0.6 th/mm3 (0.0-0.9); Mono % (Auto) 9.9 % (0.0-8.0); Neut # (Auto) 4.5 th/mm3 (1.8-7.7); Neut % (Auto) 71.3 % (16.0-70.0); Platelet Count 150 th/mm3 (150-450); Red Blood Count 4.54 mil/mm3 (4.50-5.90); Red Cell Distribution Width 14.9 % (11.6-17.2); White Blood Count 6.4 th/mm3 (4.0-11.0)
[2018-09-18 10:45] LABS: Activated Partial Thrombo Time 30.1 sec (24.3-30.1); INR 1.1 Ratio; Prothrombin Time 11.3 sec (9.8-11.6)
[2018-09-18 10:54] LABS: Anion Gap 9 meq/L (5-15); Blood Urea Nitrogen 21 mg/dL (7-18); Calcium 8.8 mg/dL (8.5-10.1); Carbon Dioxide 29.5 meq/L (21.0-32.0); Chloride 99 meq/L (98-107); Glomerular Filtration Rate 56 mL/min (>89); Glucose,Random 117 mg/dL (74-106); Potassium 3.6 meq/L (3.5-5.1); Sodium 137 meq/L (136-145)
[2018-09-18 11:02] LABS: Creatine Kinase 203 U/L (39-308)
[2018-09-18 11:14] LABS: Creatine Kinase MB 1.6 ng/mL (0.5-3.6)
--- NOTE | 2018-09-18 12:54 | US ---
EXAM DATE: 09/18/2018 12:48 PM EDT AGE/SEX: 68 years / Male INDICATIONS: Slurred speech. CLINICAL DATA: This is the patient's initial encounter. Patient reports that signs and symptoms have been present for 1 day and indicates a pain score of 0/10. MEDICAL/SURGICAL HISTORY: Diabetes. Hypertension. Transient ischemic attack. Afib. CVA. Duod enal ulcer. Graves disease. Right leg weakness. Thyroidectomy. Endoscopy. COMPARISON: [facility] [place] CAROTID ARTERIES, 11/05/2017. . VELOCITY PARAMETERS: ICA/CCA Ratio: Right 2.5 , Left 0.82 ICA: Right 279 cm/sec, Left 95 cm/sec CCA: Right 111 cm/sec, Left 115 cm/sec ECA: Right 143 cm/sec, Left 101 cm/sec Vertebral: Right 109 cm/sec antegrade, Left 65 cm/sec antegrade FINDINGS: Right Carotid: Moderate atherosclerotic plaque with moderate elevation of both velocity and ratios in the right internal carotid. Left Carotid: Mild left obstructive disease on the left. The waveforms are within normal limits. Other: None. CONCLUSION: Abnormal right internal carotid flow and ratios, borderline significant. CT angiography is suggested. Electronically signed by: Nabil Ellis MD 09/18/2018 12:53 PM EDT
[2018-09-18] MEDS: Insulin NovoLOG Aspart Correctional Sugar Inj SQ SCH ×3 (13:03→20:14)
--- NOTE | 2018-09-18 13:29 | ECG ---
Date Performed: 09/18/2018 Time Performed: 01:47:20 PTAGE: 68 years EKG: ATRIAL FIBRILLATION RIGHT BUNDLE BRANCH BLOCK MODERATE T-WAVE ABNORMALITY, CONSIDER ANTEROL ATERAL ISCHEMIA ABNORMAL ECG NO PREVIOUS TRACING DOCTOR: Layo De La Cruz Interpretating Date/Time 09/18/2018 13:27:40
--- NOTE | 2018-09-18 13:46 | ECHRPT ---
Indication: CVA/TIA CONCLUSIONS Technically very dificult study. Normal left ventricular size. Wall thickness is measured at the upper limits of normal. The left ventricular systolic function is grossly normal on limited imaging. There was limited left ventricular wall motion assessment due to poor endocardial visualization. The aortic valve is not well visualized. Probably diffuse moderate calcification of the aortic valv e. No definite evidence for significant aortic stenosis. There is mild tricuspid valve regurgitation. The estimated pulmonary arterial pressure is 33 mmHg. BP: / HR: Rhythm: MEASUREMENTS (Male / Female) Normal Values Technical Quality: 2D ECHO LV Diastolic Diameter PLAX 4.4 cm 4.2 - 5.9 / 3.9 - 5.3 cm LV Systolic Diameter PLAX 3.5 cm IVS Diastolic Thickness 1.1 cm 0.6 - 1.0 / 0.6 - 0.9 cm LVPW Diastolic Thickness 1.4 cm 0.6 - 1.0 / 0.6 - 0.9 cm LV Relative Wall Thickness 0.6 RV Internal Dim ED PLAX 2.9 cm LVOT Diameter 1.6 cm Aortic Root Diameter 3.0 cm LA Systolic Diameter LX 2.7 cm 3.0 - 4.0 / 2.7 - 3.8 cm LV Ejection Fraction MOD BP 53.3 % >= 55 % LV Ejection Fraction MOD 4C 53.2 % LV Ejection Fraction 4C AL 56.5 % LV Ejection Fraction MOD 2C 51.8 % LV Ejection Fraction 2C AL 53.1 % M-MODE Aortic Root Diameter MM 2.9 cm LA Systolic Diameter MM 5.1 cm LA Ao Ratio MM 1.8 AV Cusp Separation MM 1.3 cm DOPPLER AV Peak Velocity 216.7 cm/s AV Peak Gradient 18.8 mmHg AV Mean Gradient 8.0 mmHg AV Velocity Time Integral 35.3 cm LVOT Peak Velocity 145.0 cm/s LVOT Peak Gradient 8.4 mmHg LVOT Velocity Time Integral 18.7 cm AV Area Cont Eq vti 1.0 cm AV Area Cont Eq pk 1.3 cm Mitral E Point Velocity 116.0 cm/s Mitral A Point Velocity 30.6 cm/s Mitral E to A Ratio 3.8 LV E' Lateral Velocity 8.9 cm/s Mitral E to LV E' Lateral Ratio 13.1 LV E' Septal Velocity 6.1 cm/s Mitral E to LV E' Septal Ratio 18.9 TR Peak Velocity 238.0 cm/s TR Peak Gradient 22.7 mmHg Right Atrial Pressure 10.0 mmHg Pulmonary Artery Systolic Pressu 32.7 mmHg Right Ventricular Systolic Press 32.7 mmHg PV Peak Velocity 121.0 cm/s PV Peak Gradient 5.9 mmHg FINDINGS LEFT VENTRICLE Technically very dificult study. Normal left ventricular size. Wall thickness is measured at the upper limits of normal. The left ventricular systolic function is grossly normal on limited imaging. There was limited left ventricular wall motion assessment due to poor endocardial visualization. RIGHT VENTRICLE Normal right ventricular size and systolic function. LEFT ATRIUM The left atrial size is normal. RIGHT ATRIUM The right atrial size is normal. ATRIAL SEPTUM Normal atrial septal thickness without atrial level shunting by limited color doppler interrogation. AORTA The aortic root and proximal ascending aorta are normal in size on limited imaging. MITRAL VALVE Structurally normal mitral valve. No mitral valve stenosis or regurgitation. AORTIC VALVE The aortic valve is not well visualized. Probably diffuse moderate calcification of the aortic valve. No definite evidence for significant a ortic stenosis. TRICUSPID VALVE There is mild tricuspid valve regurgitation. The estimated pulmonary arterial pressure is 33 mmHg. PULMONARY VALVE No pulmonary valve regurgitation or stenosis. VESSELS The inferior vena cava is normal in size. PERICARDIUM No pericardial effusion. Sánchez Smallwood MD (Electronically Signed) Final Date:18 September 2018 13:45
--- NOTE | 2018-09-18 18:01 | MB ---
cc: Allen Ibanez MD, PhD DATE: 09/18/2018 REASON FOR CONSULTATION: Probable transient ischemic attack. HISTORY OF PRESENT ILLNESS: Mr. Guerrero is a 68-year-old man who has atrial fibrillation and strokes in the past. He takes Eliquis and aspirin 81 mg daily. On Sunday, he woke up with a severe headache and was in bed most of the day. He also developed difficulty with his balance and right-sided weakness, came to the emergency room. His strength has since improved. His balance is back to baseline. His headache has resolved. PAST MEDICAL HISTORY: Remarkable for atrial fibrillation, diabetes, hypothyroidism, stroke in the past, anxiety, BPH, COPD, diabetic nephropathy, lumbar degenerative disk disease, hypothyroidism, post-laminectomy syndrome, history of SVT. CURRENT MEDICATIONS: 1. Tylenol. 2. Eliquis 5 mg b.i.d. 3. Ecotrin 81 mg daily. 4. Lipitor 10 mg daily. 5. Flonase. 6. Glucagon. 7. Levothyroxine. 8. Zofran p.r.n. 9. Protonix 40 mg daily. 10. Senokot. 11. Restoril p.r.n. sleep. 12. Ultram p.r.n. pain. NEUROLOGICAL EXAMINATION: VITAL SIGNS: Blood pressure is 131/76, pulse 84, respirations 16, temperature 98 degrees. NEUROLOGIC: Higher cortical functions normal. Cranial nerves are intact. Motor exam reveals normal strength and tone of all groups. There is no drift. Reflexes are symmetric. IMAGING STUDIES: CT scan of the brain, old left hemisphere lacunar strokes identified. Moderate ischemic embolization. No acute change identified. No hemorrhage. Carotid ultrasound abnormal right carotid by flow, mild left carotid stenosis. The patient did have a neck CT angiogram on 06/26/2018 of this year, which showed moderate plaque in the left internal carotid artery at 40% to 50%, not hemodynamically significant. Less than 30% right internal carotid artery stenosis. ECHOCARDIOGRAM: Normal left ventricular size. Technically difficult study. Left ventricular wall thickness at upper limits of normal. Grossly normal left ventricular systolic function. Normal right ventricular function and size. Left atrial size normal, right atrial size normal. LABORATORY DATA: White count 6400, hemoglobin 12.9, hematocrit 38%, platelet count 150,000. Sodium is 137, potassium 3.6, chloride 99, CO2 29.5, BUN is 21, creatinine 1.27, GFR 56. PT 11.3, INR 1.1, aPTT 30.2. IMPRESSION: Probable transient ischemic attack, left hemisphere now resolved. The carotid stenosis on the left is not hemodynamically significant based on a recent CT angiogram; however, I would like to repeat the CT angiogram of the carotid to rule out any significant change. We will also try to get an MRI of the brain, although he is claustrophobic. Allen Ibanez MD, PhD SARA/ct , 03:41 PM , 03:50 PM
[2018-09-18] MEDS ORDERED: Gadobutrol PF 10 MMOL/10 ML Vial (for RAD) IV.SIG ONE (19:05)
--- NOTE | 2018-09-18 19:23 | MR ---
EXAM DATE: 09/18/2018 7:15 PM EDT AGE/SEX: 68 years / Male INDICATIONS: CVA. Slurred speech and weakness. CLINICAL DATA: This is the patient's initial encounter. Patient reports that signs and symptoms have been present for 1 day and indicates a pain score of 3/10. MEDICAL/SURGICAL HISTORY: Stroke. Fusion, lumbar. COMPARISON: [facility] – [place], CT HEAD W/O CONTRAST, 09/18/2018. . TECHNIQUE: Multiplanar, multisequence examination of the brain was performed without and with 9 ml Ga davist (gadobutrol) contrast as a single exam dose. FINDINGS: Cerebrum: The ventricles are normal for age with moderate atrophic changes. No evidence of midline s hift, mass lesion, hemorrhage or acute infarction. There are old infarcts in the left basal ganglia No extraaxial fluid collections are seen. The pituitary gland and suprasellar cistern are normal in configuration. White Matter: On the FLAIR weighted images there is increased signal in the periventricular and symp toms white matter and centrum semiovale consistent with chronic small vessel ischemic change. Posterior Fossa: The cerebellum and brainstem are intact. The small old lacunar infarct in the right side of the cesar. The 4th ventricle is midline. The cerebellopontine angle is unremarkable. The cer ebellar tonsils are normal in position. Diffusion Imaging: No focal areas of restricted diffusion are seen. No evidence of acute infarction . Extracranial: The visualized portions of the orbits and paranasal sinuses are unremarkable. Post Contrast: No abnormal areas of parenchymal or dural enhancement. No evidence of blood-brain ba rrier breakdown. CONCLUSION: 1. No acute hemorrhage, mass or infarction. 2. Old lacunar infarcts. 3. Moderate atrophy and chronic small vessel ischemic change. Electronically signed by: Ramana Jc MD 09/18/2018 7:22 PM EDT
--- NOTE | 2018-09-18 21:18 | CT ---
EXAM DATE: 09/18/2018 9:03 PM EDT AGE/SEX: 68 years / Male INDICATIONS: Left hemisphere TIA. CLINICAL DATA: This is the patient's initial encounter. Patient reports that signs and symptoms have been present for 2 days and indicates a pain score of 0/10. MEDICAL/SURGICAL HISTORY: Diabetes. Hypertension. Cerebrovascular disease. Thyroidectomy. RADIATION DOSE: 10.91 CTDI (mGy) COMPARISON: [facility], CTA NECK W CONTRAST W 3D, 06/26/2018. . TECHNIQUE: Volumetric scanning was performed using a multirow detector CT scanner during bolus infus ion of 74 ml Omnipaque 350 (iohexol) nonionic water-soluble contrast as a single exam dose. The da ta was postprocessed with a variety of visualization algorithms including full-volume maximum intensi ty projection, multiplanar sliding thin-slab reformation, curved-planar reformation, and surface-rend ering techniques. Using automated exposure control and adjustment of the mA and/or kV according to p atient size, radiation dose was kept as low as reasonably achievable to obtain optimal diagnostic olga lity images. DICOM format image data is available electronically for review and comparison. Percent stenosis is calculated using the diameter of the stenotic region over the diameter of the nor mal distal internal carotid artery. FINDINGS: Great vessel origins are patent. Both common carotid arteries are patent. At the proximal left internal carotid artery there is eccentric plaque formation resulting in a focal approximately 50% stenosis which is probably not hemodynamically significant. At the right carotid bifurcation and proximal right internal carotid artery there is plaque formation with a minimal stenosis around 20-30%. The remainder of the internal carotid arteries are patent. Proximal external carotid arteries are pat ent. Dominant right vertebral artery noted. Both vertebral arteries are patent. CONCLUSION: 1. At the left proximal internal carotid artery there is moderate plaque formation with an approxima tely 50% stenosis, probably not hemodynamically significant. 2. Mild to moderate plaque at the proximal right internal carotid artery with less than 30% stenosis . 3. Both vertebral arteries are patent, dominant on the right. 4. Overall no significant change compared with June 26, 2018. Electronically signed by: Vincent Manley MD 09/18/2018 9:17 PM EDT
[2018-09-19] MEDS: Levothyroxine 150 MCG Tablet PO SCH (05:21)
[2018-09-19 06:53] LABS: Baso % (Auto) 0.8 % (0.0-2.0); Eos # (Auto) 0.4 th/mm3 (0.0-0.4); Eos % (Auto) 6.6 % (0.0-4.0); Hematocrit 37.5 % (39.0-51.0); Hemoglobin 12.8 gm/dL (13.0-17.0); Lymph % (Auto) 17.3 % (9.0-44.0); Mean Corpuscular HGB Conc 34.1 % (32.0-36.0); Mean Corpuscular Hemoglobin 28.4 pg (27.0-34.0); Mean Corpuscular Volume 83.2 fL (80.0-100.0); Mean Platelet Volume 9.1 fL (7.0-11.0); Mono # (Auto) 0.7 th/mm3 (0.0-0.9); Mono % (Auto) 11.7 % (0.0-8.0); Neut # (Auto) 3.7 th/mm3 (1.8-7.7); Neut % (Auto) 63.6 % (16.0-70.0); Platelet Count 162 th/mm3 (150-450); Red Blood Count 4.51 mil/mm3 (4.50-5.90); Red Cell Distribution Width 15.1 % (11.6-17.2); White Blood Count 5.8 th/mm3 (4.0-11.0)
[2018-09-19 07:19] LABS: Calcium 8.5 mg/dL (8.5-10.1); Carbon Dioxide 26.1 meq/L (21.0-32.0); Potassium 3.5 meq/L (3.5-5.1)
[2018-09-19] MEDS: Insulin NovoLOG Aspart Correctional Sugar Inj SQ SCH ×4 (08:45→22:20)
[2018-09-19] MEDS: Senna/Docusate Sodium 8.6/50 MG Tablet PO SCH ×2 (08:49→21:50)
--- NOTE | 2018-09-19 10:08 | P.PNIM ---
Subjective Interval history: pt speech much improved today. Physical Exam Vital signs: Last Vital Signs Temp 98 F 09/19/18 08:00 Pulse 94 H 09/19/18 08:00 Resp 18 09/19/18 08:00 BP 141/83 H 09/19/18 08:00 Pulse Ox 97 09/19/18 08:00 Narrative: nad no labored breathing no dysarthria or facial droop heart irreg lung cta abd s/nt ext no edema Results Labs CBC & Chem 7: 09/19/18 05:13 09/19/18 05:13 Assessment and Plan Assessment (1) Transient cerebral ischemia: Code(s): G45.9 - Transient cerebral ischemic attack, unspecified Status: Acute Plan: TIA, Hx of CVA - Pt is a 68 y/o WM with atrial fibrillation s/p cardioversion x 2, diabetes, hypertension, hypothyroidism, and prior history of CVA in 10/2017 and is on Eliquis and was recently admitted to [facility] [place] in 06/2018 with similar complaints at that time and seen by Neurology and ASA 81mg daily was added to his regimen which he has reportedly been compliant with. - He presented to the ED on 09/18/18 with a complaints of headache that began two days ago (frontal) and yesterday started having increased weakness on the right side and some speech difficulties. - Neurology has been consulted - Head CT (09/18/18) - No acute abnormality, chronic white matter ischemic changes. Previous Head CT (06/26/18) - Mild to moderate periventricular and subcortical white matter small vessel ischemic changes bilaterally - Old lacunar infarcts involving the left lopes radiata and basal ganglia - Old lacunar infarct involving the right cesar - Mild stable cerebral atrophy, but no acute infarct, acute hemorrhage, midline shift or extra-axial bleed. - Head CTA (06/26/18) - Dense atherosclerotic calcification of the distal internal carotid arteries at skull base - Otherwise, intracranial vessels are all patent without embolic event to explain current clinical symptoms. - Neck CTA (06/26/18) - The proximal left internal carotid artery there is moderate plaque formation with 40-50% stenosis, not hemodynamically significant - The proximal right internal carotid artery there is mild plaque formation with less than 30% stenosis - Both vertebral arteries are patent, dominant right. - Pt is again refusing an MRI of the brain due to severe claustrophobia. He states that the only time has has been able to tolerating having an MRI performed he had to be sedated with Versed. - Pt noted to be in A. fib, rate controlled. - Pt is on rosuvastatin, - PT/OT/ST evaluation - Telemetry - Neuro checks - Cont. Eliquis and ASA and await Neurology evaluation. - Supportive care - DVT prophylaxis with SCDs and Eliquis MRI brain showed microvascular dz, old lacunar cva' and no acute mass/hemorrhage or cva. repeat cta neck hemodynamically insig. plaque. PT today. dc when ok with neurology. await any recc. changes for cva prevention. Atrial fibrillation - As above. - Rate controlled. - Eliquis resumed. Diabetes mellitus Diabetic nephropathy - Hgb A1c 6/7% on 06/27/18. - NovoLog sliding scale insulin. - May need to add Levemir depending on pts next few BS readings. - Accu checks Hypertension - Pt currently being allowed permissive hypertension with parameters. - BP stable for now Postlaminectomy syndrome - Continue home medication Hypothyroidism - Continue medication Hyperlipidemia - COnt. statin Anxiety (2) CVA (cerebral vascular accident): Code(s): I63.9 - Cerebral infarction, unspecified Status: Suspected (3) HTN (hypertension): Code(s): I10 - Essential (primary) hypertension Status: Chronic (4) Diabetes: Code(s): E11.9 - Type 2 diabetes mellitus without complications Status: Chronic (5) A-fib: Code(s): I48.91 - Unspecified atrial fibrillation Status: Chronic (6) Right leg weakness: Code(s): R29.898 - Other symptoms and signs involving the musculoskeletal system Status: Chronic Plan - Progress Note: Quality VTE Deep Vein Thrombosis/Pulmonary Embolism Present on Admission: No _ (1) Transient cerebral ischemia Qualifiers: Transient cerebral ischemia type: unspecified Qualified Code(s): G45.9 - Transient cerebral ischemic attack, unspecified (2) CVA (cerebral vascular accident) Qualifiers: CVA mechanism: Precerebral and cerebral artery: Laterality of affected vessel: (3) HTN (hypertension) Qualifiers: Hypertension type: (4) Diabetes Qualifiers: Diabetes mellitus type: Diabetes mellitus retirement insulin use: Diabetes mellitus complication status: Diabetes mellitus complication detail: Diabetic retinopathy severity: Proliferative retinopathy type: Diabetes mellitus macular edema: Laterality: Chronic kidney disease stage: (5) A-fib Qualifiers: Atrial fibrillation type:
--- NOTE | 2018-09-19 18:00 | P.PNNEU ---
Subjective Subjective Comments: no recurrent neurologic sx. The patients states that he was compliant in taking his eliquis and aspirin at the time of the recent TIA Active Medications: Active Medications Acetaminophen (Tylenol) 650 mg PO Q4H PRN PRN Reason: Temp > 100.4 Al Hydroxide/Mg Hydroxide (Milk Of Magnrita Liq) 30 ml PO Q12H PRN PRN Reason: Mild Constipation Apixaban (Eliquis) 5 mg PO BID [facility] Last Admin: 09/19/18 08:49 Dose: 5 mg Aspirin (Ecotrin) 81 mg PO DAILY [facility] Last Admin: 09/19/18 08:49 Dose: 81 mg Atorvastatin Calcium (Lipitor) 10 mg PO DAILY [facility] Last Admin: 09/19/18 08:48 Dose: 10 mg Dextrose (D50w Vial) 50 ml IV.PUSH UNSCH PRN PRN Reason: PER HYPOGLYCEMIA PROTOCOL Fluticasone Propionate (Flonase Nasal Etoile) 2 spray EACH NARE DAILY [facility] Last Admin: 09/19/18 09:02 Dose: 2 spray Glucagon (Glucagon Inj) 1 mg OTHER PRN PRN PRN Reason: for Hypoglycemia Protocol Insulin Aspart (Novolog Insulin Correctional Sugar Inj) 0 unit SQ ACHS [facility]; Protocol Last Admin: 09/19/18 17:52 Dose: 3 unit Levothyroxine Sodium (Synthroid) 150 mcg PO DAILY@0600 [facility] Last Admin: 09/19/18 05:21 Dose: 150 mcg Ondansetron HCl (Zofran Inj) 4 mg IV.PUSH Q6H PRN PRN Reason: NAUSEA OR VOMITING Pantoprazole Sodium (Protonix) 40 mg PO DAILY [facility] Last Admin: 09/19/18 08:49 Dose: 40 mg Senna/Docusate Sodium (Rachel-Colace) 1 tab PO BID [facility] Last Admin: 09/19/18 08:49 Dose: 1 tab Sennosides (Senokot) 17.2 mg PO Q12H PRN PRN Reason: Moderate Constipation Sodium Chloride (Ns Flush) 2 ml IV.FLUSH UNSCH PRN PRN Reason: FLUSH AFTER USING IV ACCESS Sodium Chloride (Ns Flush) 2 ml IV.FLUSH BID [facility] Last Admin: 09/19/18 08:49 Dose: 2 ml Temazepam (Restoril) 15 mg PO HS PRN PRN Reason: INSOMNIA Tramadol HCl (Ultram) 50 mg PO Q6H PRN PRN Reason: Back Pain Allergies/Adverse Reactions: Allergies Allergy/AdvReac Type Severity Reaction Status Date / Time doxycycline Allergy Severe Hives Verified 09/18/18 01:39 minocycline Allergy Severe Hives Verified 09/18/18 01:39 tigecycline Allergy Severe Hives Verified 09/18/18 01:39 benazepril AdvReac Severe PT Verified 09/18/18 01:39 ALLERGIC TO LOTREL Physical Exam Vital signs: Vital Signs 09/18/18 20:00 09/19/18 00:00 09/19/18 04:00 Temperature 98.0 F 99.2 F 98.0 F Pulse Rate 88 105 H 87 Respiratory Rate 18 18 18 Blood Pressure 161/88 H 149/81 H 150/79 H Pulse Oximetry 99 98 96 09/19/18 08:00 09/19/18 12:00 09/19/18 14:05 Temperature 98 F 98.3 F Pulse Rate 94 H 87 103 H Respiratory Rate 18 18 Blood Pressure 141/83 H 130/86 Pulse Oximetry 97 96 09/19/18 15:50 Temperature 97.7 F Pulse Rate 82 Respiratory Rate 18 Blood Pressure 148/84 H Pulse Oximetry 97 Intake & Output 09/18/18 09/19/18 09/19/18 18:59 06:59 18:59 Intake Total 0 / 0 Output Total 500 / 500 Balance -500 / -500 Intake: IV 0 / 0 NS Inj 1,000 ML @ 70 mls/hr IV. 0 / 0 CONT .[id number] [facility] Rx#:[id number] Output: Urine 500 / 500 Other: # Voids 2 3 Date of Last Bowel Movement 09/18/18 09/18/18 09/18/18 # Bowel Movements 2 - Routine Neurological Exam Present: alert, CN II-XII intact, normal speech Objective Laboratory Results - last 24 hr 09/18/18 09/18/18 09/19/18 20:09 23:25 05:13 WBC 5.8 RBC 4.51 Hgb 12.8 L Hct 37.5 L MCV 83.2 MCH 28.4 MCHC 34.1 RDW 15.1 Plt Count 162 MPV 9.1 Neut % (Auto) 63.6 Lymph % (Auto) 17.3 [place] % (Auto) 11.7 H Eos % (Auto) 6.6 H Baso % (Auto) 0.8 Neut # (Auto) 3.7 Lymph # (Auto) 1.0 [place] # (Auto) 0.7 Eos # (Auto) 0.4 Baso # (Auto) 0.0 WBC Differential . Differential Comment Auto diff final Sodium Potassium Chloride Carbon Dioxide Anion Gap BUN Creatinine Estimated GFR POC Glucose 131 H Random Glucose Calcium Troponin I Less than 0.02 L 09/19/18 09/19/18 09/19/18 05:13 07:19 11:26 WBC RBC Hgb Hct MCV MCH MCHC RDW Plt Count MPV Neut % (Auto) Lymph % (Auto) [place] % (Auto) Eos % (Auto) Baso % (Auto) Neut # (Auto) Lymph # (Auto) [place] # (Auto) Eos # (Auto) Baso # (Auto) WBC Differential Differential Comment Sodium 139 Potassium 3.5 Chloride 103 Carbon Dioxide 26.1 Anion Gap 10 BUN 17 Creatinine 1.25 Estimated GFR 57 L POC Glucose 140 H 220 H Random Glucose 157 H Calcium 8.5 Troponin I 09/19/18 17:21 WBC RBC Hgb Hct MCV MCH MCHC RDW Plt Count MPV Neut % (Auto) Lymph % (Auto) [place] % (Auto) Eos % (Auto) Baso % (Auto) Neut # (Auto) Lymph # (Auto) [place] # (Auto) Eos # (Auto) Baso # (Auto) WBC Differential Differential Comment Sodium Potassium Chloride Carbon Dioxide Anion Gap BUN Creatinine Estimated GFR POC Glucose 223 H Random Glucose Calcium Troponin I Review/Management - Review/Management Plan: I suspect his TIA was related to atrial fibrillation. The left carotid stenosis on the CTA is <50% and is not hemodynamically significant Recommend cardiology consult regarding anticoagulation--whether to continue eliquis or change to another anticoagulant.
[2018-09-19] MEDS: Temazepam 15 MG Capsule PO PRN (22:20)
[2018-09-19] MEDS ORDERED: Loperamide 2 MG Capsule PO SCH (22:30)
[2018-09-20] MEDS: Levothyroxine 150 MCG Tablet PO SCH (05:10)
[2018-09-20] MEDS: Insulin NovoLOG Aspart Correctional Sugar Inj SQ SCH ×4 (08:05→21:07)
[2018-09-20] MEDS: Senna/Docusate Sodium 8.6/50 MG Tablet PO SCH ×2 (08:57→21:08)
[2018-09-20] MEDS ORDERED: Metoprolol Tartrate 25 MG Tablet PO ONE (10:08)
[2018-09-20] MEDS ORDERED: Chlorhexidine Gluconate 2% 1 Pack (2 Cloths) TOPICAL ONE (10:08)
[2018-09-20 10:57] LABS: Baso % (Auto) 0.9 % (0.0-2.0); Eos # (Auto) 0.6 th/mm3 (0.0-0.4); Eos % (Auto) 10.5 % (0.0-4.0); Hematocrit 31.7 % (39.0-51.0); Lymph # (Auto) 0.9 th/mm3 (1.0-4.8); Lymph % (Auto) 16.2 % (9.0-44.0); Mean Corpuscular HGB Conc 34.8 % (32.0-36.0); Mean Corpuscular Volume 83.2 fL (80.0-100.0); Mean Platelet Volume 8.4 fL (7.0-11.0); Mono # (Auto) 0.7 th/mm3 (0.0-0.9); Mono % (Auto) 13.2 % (0.0-8.0); Neut # (Auto) 3.2 th/mm3 (1.8-7.7); Neut % (Auto) 59.2 % (16.0-70.0); Platelet Count 164 th/mm3 (150-450); Red Blood Count 3.81 mil/mm3 (4.50-5.90); Red Cell Distribution Width 15.1 % (11.6-17.2); White Blood Count 5.5 th/mm3 (4.0-11.0)
[2018-09-20] MEDS ORDERED: Sodium Chlor 0.9% Inj 500 ML IV.SIG SCH (11:00)
--- NOTE | 2018-09-20 11:31 | P.PNIM ---
Subjective Interval history: pt ambulating. no new complaints Physical Exam Vital signs: Last Vital Signs Temp 97.8 F 09/20/18 07:49 Pulse 86 09/20/18 08:00 Resp 16 09/20/18 07:51 BP 133/78 09/20/18 07:49 Pulse Ox 95 09/20/18 07:49 Narrative: nad no labored breathing no dysarthria or facial droop heart irreg lung cta abd s/nt ext no edema Results Labs CBC & Chem 7: 09/20/18 10:36 09/19/18 05:13 Assessment and Plan Assessment (1) Transient cerebral ischemia: Code(s): G45.9 - Transient cerebral ischemic attack, unspecified Status: Acute Plan: TIA, Hx of CVA - Pt is a 68 y/o WM with atrial fibrillation s/p cardioversion x 2, diabetes, hypertension, hypothyroidism, and prior history of CVA in 10/2017 and is on Eliquis and was recently admitted to [facility] [place] in 06/2018 with similar complaints at that time and seen by Neurology and ASA 81mg daily was added to his regimen which he has reportedly been compliant with. - He presented to the ED on 09/18/18 with a complaints of headache that began two days ago (frontal) and yesterday started having increased weakness on the right side and some speech difficulties. - Neurology has been consulted - Head CT (09/18/18) - No acute abnormality, chronic white matter ischemic changes. Previous Head CT (06/26/18) - Mild to moderate periventricular and subcortical white matter small vessel ischemic changes bilaterally - Old lacunar infarcts involving the left lopes radiata and basal ganglia - Old lacunar infarct involving the right cesar - Mild stable cerebral atrophy, but no acute infarct, acute hemorrhage, midline shift or extra-axial bleed. - Head CTA (06/26/18) - Dense atherosclerotic calcification of the distal internal carotid arteries at skull base - Otherwise, intracranial vessels are all patent without embolic event to explain current clinical symptoms. - Neck CTA (06/26/18) - The proximal left internal carotid artery there is moderate plaque formation with 40-50% stenosis, not hemodynamically significant - The proximal right internal carotid artery there is mild plaque formation with less than 30% stenosis - Both vertebral arteries are patent, dominant right. - Pt is again refusing an MRI of the brain due to severe claustrophobia. He states that the only time has has been able to tolerating having an MRI performed he had to be sedated with Versed. - Pt noted to be in A. fib, rate controlled. - Pt is on rosuvastatin, - PT/OT/ST evaluation - Telemetry - Neuro checks - Cont. Eliquis and ASA - neuro consult to cardiology...ALEX today await neuro/cards reccs for any change to his anticoagulation regimen ?dc home later today if alex negative - Supportive care - DVT prophylaxis with SCDs and Eliquis MRI brain showed microvascular dz, old lacunar cva' and no acute mass/hemorrhage or cva. repeat cta neck hemodynamically insig. plaque. PT today. dc when ok with neurology. await any recc. changes for cva prevention. Atrial fibrillation - As above. - Rate controlled. - Eliquis resumed. Diabetes mellitus Diabetic nephropathy - Hgb A1c 6/7% on 06/27/18. - NovoLog sliding scale insulin. - May need to add Levemir depending on pts next few BS readings. - Accu checks Hypertension - Pt currently being allowed permissive hypertension with parameters. - BP stable for now Postlaminectomy syndrome - Continue home medication Hypothyroidism - Continue medication Hyperlipidemia - COnt. statin Anxiety (2) CVA (cerebral vascular accident): Code(s): I63.9 - Cerebral infarction, unspecified Status: Suspected (3) HTN (hypertension): Code(s): I10 - Essential (primary) hypertension Status: Chronic (4) Diabetes: Code(s): E11.9 - Type 2 diabetes mellitus without complications Status: Chronic (5) A-fib: Code(s): I48.91 - Unspecified atrial fibrillation Status: Chronic (6) Right leg weakness: Code(s): R29.898 - Other symptoms and signs involving the musculoskeletal system Status: Chronic Plan - Progress Note: Quality VTE Deep Vein Thrombosis/Pulmonary Embolism Present on Admission: No _ (1) Transient cerebral ischemia Qualifiers: Transient cerebral ischemia type: unspecified Qualified Code(s): G45.9 - Transient cerebral ischemic attack, unspecified (2) CVA (cerebral vascular accident) Qualifiers: CVA mechanism: Precerebral and cerebral artery: Laterality of affected vessel: (3) HTN (hypertension) Qualifiers: Hypertension type: (4) Diabetes Qualifiers: Diabetes mellitus type: Diabetes mellitus senior care insulin use: Diabetes mellitus complication status: Diabetes mellitus complication detail: Diabetic retinopathy severity: Proliferative retinopathy type: Diabetes mellitus macular edema: Laterality: Chronic kidney disease stage: (5) A-fib Qualifiers: Atrial fibrillation type:
--- NOTE | 2018-09-20 14:22 | P.CONGI ---
History of Present Illness Consult date: 09/20/18 Consult reason: GI bleed Rectal bleeding Chief complaint: TIA versus Stroke History of Present Illness: This patient is a 68-year-old male patient who has a medical history that includes atrial fibrillation, diverticulitis, colon polyps, diabetes, hypertension, hypothyroidism and CVA. Patient presented to the emergency room at [facility] on 09/18/2018 with complaints of difficulty ambulating and slurring speech. Of note, patient has a history of CVA in 2016 and has been on Eliquis and aspirin [address] of brain on done on noted no acute intracranial abnormality demonstrated and chronic white matter changes. Our service has been consulted to evaluate report of patient having bright red rectal bleeding this a.m. Upon consultation, patient reports one episode of bright red blood per rectum with stool this a.m. Patient denies any abdominal pain nausea or vomiting. He states last EGD was done in June 2018 where gastric ulcer was discovered. Patient has since been on Pantoprazole 40 mg p.o. daily at home as well as Eliquis 5 mg p.o. twice daily and Aspirin 81 mg p.o. daily. Patient denies any use of NSAIDs, states he is a social drinker and denies any tobacco use. 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 <Anjali Li - Last Filed: 09/20/18 14:07> Review of Systems All other systems reviewed negative except as stated in HPI <Anjali Li - Last Filed: 09/20/18 14:07> PMFSH - History History Provided By: Patient - Medical History Medical History: Medical History (Last Reviewed 09/20/18 @ 06:56 by Graham Hazel) Transient cerebral ischemia (Acute) CVA (cerebral vascular accident) (Suspected) HTN (hypertension) (Chronic) Diabetes (Chronic) A-fib (Chronic) Right leg weakness (Chronic) Afib Arthritis High blood pressure Diabetes Duodenal ulcer Graves disease H/O endoscopy Stroke - Surgical History Surgical History: Surgical History (Last Reviewed 09/20/18 @ 06:56 by Graham Hazel) History of thyroidectomy - Tobacco History Second Hand Smoke Exposure: No Tobacco Use In Past 30 Days: No Smoking Status: Former smoker Tobacco Type: Cigarettes Smoking End Date: Quit 4-5 years ago - Alcohol History How Often Do You Have a Drink Containing Alcohol: 2 to 4 times a month - Substance Use History Substance History: No History of Abuse - Travel History Recent Travel in the [place] Within the Last 8 Weeks: No Recent Travel Out of the Country Within the Last 8 Weeks: No - Immunization History Tetanus Immunization: <5 Years <Anjali Li - Last Filed: 09/20/18 14:07> - Medical History Medical History: Medical History (Last Reviewed 09/20/18 @ 06:56 by Graham Hazel) Transient cerebral ischemia (Acute) CVA (cerebral vascular accident) (Suspected) HTN (hypertension) (Chronic) Diabetes (Chronic) A-fib (Chronic) Right leg weakness (Chronic) Afib Arthritis High blood pressure Diabetes Duodenal ulcer Graves disease H/O endoscopy Stroke - Surgical History Surgical History: Surgical History (Last Reviewed 09/20/18 @ 06:56 by Graham Hazel) History of thyroidectomy <Jose Tenorio - Last Filed: 09/20/18 18:59> Medications and Allergies Active Medications: Active Medications Acetaminophen (Tylenol) 650 mg PO Q4H PRN PRN Reason: Temp > 100.4 Al Hydroxide/Mg Hydroxide (Milk Of Magnrita Liq) 30 ml PO Q12H PRN PRN Reason: Mild Constipation Apixaban (Eliquis) 5 mg PO BID [facility] Last Admin: 09/20/18 08:56 Dose: 5 mg Aspirin (Ecotrin) 81 mg PO DAILY [facility] Last Admin: 09/20/18 08:56 Dose: 81 mg Atorvastatin Calcium (Lipitor) 10 mg PO DAILY [facility] Last Admin: 09/20/18 08:55 Dose: 10 mg Dextrose (D50w Vial) 50 ml IV.PUSH UNSCH PRN PRN Reason: PER HYPOGLYCEMIA PROTOCOL Fluticasone Propionate (Flonase Nasal [place]) 2 spray EACH NARE DAILY [facility] Last Admin: 09/20/18 08:56 Dose: 2 spray Glucagon (Glucagon Inj) 1 mg OTHER PRN PRN PRN Reason: for Hypoglycemia Protocol Sodium Chloride (Ns Inj) 500 mls @ 30 mls/hr IV.SIG .[id number] [facility] Stop: 09/21/18 03:39 Last Admin: 09/20/18 13:00 Dose: Not Given Dextrose/Sodium Chloride (D5w/Normal Saline Inj) 1,000 mls @ 42 mls/hr IV.CONT .[id number] [facility] Insulin Aspart (Novolog Insulin Correctional Sugar Inj) 0 unit SQ ACHS [facility]; Protocol Last Admin: 09/20/18 13:03 Dose: Not Given Levothyroxine Sodium (Synthroid) 150 mcg PO DAILY@0600 [facility] Last Admin: 09/20/18 05:10 Dose: 150 mcg Ondansetron HCl (Zofran Inj) 4 mg IV.PUSH Q6H PRN PRN Reason: NAUSEA OR VOMITING Pantoprazole Sodium (Protonix) 40 mg PO DAILY [facility] Last Admin: 09/20/18 08:55 Dose: 40 mg Senna/Docusate Sodium (Rachel-Colace) 1 tab PO BID [facility] Last Admin: 09/20/18 08:57 Dose: Not Given Sennosides (Senokot) 17.2 mg PO Q12H PRN PRN Reason: Moderate Constipation Sodium Chloride (Ns Flush) 2 ml IV.FLUSH UNSCH PRN PRN Reason: FLUSH AFTER USING IV ACCESS Sodium Chloride (Ns Flush) 2 ml IV.FLUSH BID [facility] Last Admin: 09/20/18 08:57 Dose: 2 ml Temazepam (Restoril) 15 mg PO HS PRN PRN Reason: INSOMNIA Last Admin: 09/19/18 22:20 Dose: 15 mg Tramadol HCl (Ultram) 50 mg PO Q6H PRN PRN Reason: Back Pain Last Admin: 09/20/18 01:15 Dose: 50 mg <Anjali Li - Last Filed: 09/20/18 14:07> Active Medications: Active Medications Acetaminophen (Tylenol) 650 mg PO Q4H PRN PRN Reason: Temp > 100.4 Al Hydroxide/Mg Hydroxide (Milk Of Magnesia Liq) 30 ml PO Q12H PRN PRN Reason: Mild Constipation Apixaban (Eliquis) 5 mg PO BID [facility] Last Admin: 09/20/18 08:56 Dose: 5 mg Aspirin (Ecotrin) 81 mg PO DAILY [facility] Last Admin: 09/20/18 08:56 Dose: 81 mg Atorvastatin Calcium (Lipitor) 10 mg PO DAILY [facility] Last Admin: 09/20/18 08:55 Dose: 10 mg Dextrose (D50w Vial) 50 ml IV.PUSH UNSCH PRN PRN Reason: PER HYPOGLYCEMIA PROTOCOL Fluticasone Propionate (Flonase Nasal [place]) 2 spray EACH NARE DAILY [facility] Last Admin: 09/20/18 08:56 Dose: 2 spray Glucagon (Glucagon Inj) 1 mg OTHER PRN PRN PRN Reason: for Hypoglycemia Protocol Sodium Chloride (Ns Inj) 500 mls @ 30 mls/hr IV.SIG .[id number] [facility] Stop: 09/21/18 03:39 Last Admin: 09/20/18 13:00 Dose: Not Given Dextrose/Sodium Chloride (D5w/Normal Saline Inj) 1,000 mls @ 42 mls/hr IV.CONT .[id number] [facility] Last Admin: 09/20/18 15:18 Dose: 42 mls/hr Insulin Aspart (Novolog Insulin Correctional Sugar Inj) 0 unit SQ ACHS [facility]; Protocol Last Admin: 09/20/18 18:04 Dose: Not Given Levothyroxine Sodium (Synthroid) 150 mcg PO DAILY@0600 [facility] Last Admin: 09/20/18 05:10 Dose: 150 mcg Ondansetron HCl (Zofran Inj) 4 mg IV.PUSH Q6H PRN PRN Reason: NAUSEA OR VOMITING Pantoprazole Sodium (Protonix) 40 mg PO DAILY [facility] Last Admin: 09/20/18 08:55 Dose: 40 mg Senna/Docusate Sodium (Rachel-Colace) 1 tab PO BID [facility] Last Admin: 09/20/18 08:57 Dose: Not Given Sennosides (Senokot) 17.2 mg PO Q12H PRN PRN Reason: Moderate Constipation Sodium Chloride (Ns Flush) 2 ml IV.FLUSH UNSCH PRN PRN Reason: FLUSH AFTER USING IV ACCESS Sodium Chloride (Ns Flush) 2 ml IV.FLUSH BID [facility] Last Admin: 09/20/18 08:57 Dose: 2 ml Temazepam (Restoril) 15 mg PO HS PRN PRN Reason: INSOMNIA Last Admin: 09/19/18 22:20 Dose: 15 mg Tramadol HCl (Ultram) 50 mg PO Q6H PRN PRN Reason: Back Pain Last Admin: 09/20/18 01:15 Dose: 50 mg <Jose Tenorio E - Last Filed: 09/20/18 18:59> Allergies Allergy/AdvReac Type Severity Reaction Status Date / Time doxycycline Allergy Severe Hives Verified 09/18/18 01:39 minocycline Allergy Severe Hives Verified 09/18/18 01:39 tigecycline Allergy Severe Hives Verified 09/18/18 01:39 benazepril AdvReac Severe PT Verified 09/18/18 01:39 ALLERGIC TO LOTREL Home Medications Medication Instructions Recorded Confirmed Type apixaban [Eliquis] 5 mg PO BID 06/26/18 09/18/18 History fluticasone [Allergy Relief 2 spray INTRANASAL DAILY 06/26/18 09/18/18 History (fluticasone)] insulin degludec [Tresiba 30 unit SUB-Q HS 06/26/18 09/18/18 History FlexTouch U-100] levothyroxine 150 mcg PO DAILY 06/26/18 09/18/18 History liraglutide [Victoza 3-Darron] 1.2 mg SUB-Q DAILY 06/26/18 09/18/18 History tramadol 50 mg PO Q6H PRN 06/26/18 09/18/18 History rosuvastatin 5 mg PO DAILY 07/18/18 09/18/18 History pantoprazole [Protonix] 40 mg PO DAILY 09/18/18 09/18/18 History Exam Vital signs: Vital Signs 09/19/18 15:50 09/19/18 20:00 09/20/18 00:00 Temperature 97.7 F 98.3 F 97.9 F Pulse Rate 82 97 H 87 Respiratory Rate 18 20 20 Blood Pressure 148/84 H 160/82 H 153/86 H Pulse Oximetry 97 98 96 09/20/18 04:00 09/20/18 07:49 09/20/18 07:51 Temperature 97.8 F 97.8 F Pulse Rate 101 H 88 Respiratory Rate 22 20 16 Blood Pressure 129/83 133/78 Pulse Oximetry 97 95 09/20/18 08:00 Temperature Pulse Rate 86 Respiratory Rate Blood Pressure Pulse Oximetry Intake & Output 09/19/18 09/20/18 09/20/18 18:59 06:59 18:59 Intake Total 420 / 420 Balance 420 / 420 Intake: Oral 420 / 420 Other: # Voids 3 Date of Last Bowel Movement 09/18/18 09/19/18 09/20/18 - Constitutional no acute distress - Routine HEENT Exam Head: Present: normocephalic - Routine Respiratory Exam Present: CTA bilaterally. Absent: accessory muscle use - Routine Abdominal Exam Present: soft, normoactive bowel sounds. Absent: tenderness, distended, guarding, firm - Routine Extremities Exam Present: edema - Routine Skin Exam Present: dry, warm - Routine Neurological Exam Present: alert, oriented X3 <GuillermoAnjali - Last Filed: 09/20/18 14:07> Vital signs: Vital Signs 09/19/18 20:00 09/20/18 00:00 09/20/18 04:00 Temperature 98.3 F 97.9 F 97.8 F Pulse Rate 97 H 87 101 H Respiratory Rate 20 20 22 Blood Pressure 160/82 H 153/86 H 129/83 Pulse Oximetry 98 96 97 09/20/18 07:49 09/20/18 07:51 09/20/18 08:00 Temperature 97.8 F Pulse Rate 88 86 Respiratory Rate 20 16 Blood Pressure 133/78 Pulse Oximetry 95 09/20/18 12:00 09/20/18 16:00 09/20/18 17:43 Temperature 97.2 F L 97.3 F L Pulse Rate 105 H 87 82 Respiratory Rate 20 20 Blood Pressure 135/80 129/82 Pulse Oximetry 98 97 Intake & Output 09/19/18 09/20/18 09/20/18 18:59 06:59 18:59 Intake Total 420 / 420 Balance 420 / 420 Intake: Oral 420 / 420 Other: # Voids 3 Date of Last Bowel Movement 09/18/18 09/19/18 09/20/18 # Bowel Movements 1 <Jose Tenorio E - Last Filed: 09/20/18 18:59> Results - Labs CBC & Chem 7: 09/20/18 10:36 09/19/18 05:13 Labs: Laboratory Results - last 24 hr 09/19/18 09/19/18 09/20/18 17:21 21:53 07:13 WBC RBC Hgb Hct MCV MCH MCHC RDW Plt Count MPV Neut % (Auto) Lymph % (Auto) [place] % (Auto) Eos % (Auto) Baso % (Auto) Neut # (Auto) Lymph # (Auto) [place] # (Auto) Eos # (Auto) Baso # (Auto) WBC Differential Differential Comment POC Glucose 223 H 212 H 148 H 09/20/18 09/20/18 10:36 13:03 WBC 5.5 RBC 3.81 L Hgb 11.0 L Hct 31.7 L MCV 83.2 MCH 29.0 MCHC 34.8 RDW 15.1 Plt Count 164 MPV 8.4 Neut % (Auto) 59.2 Lymph % (Auto) 16.2 [place] % (Auto) 13.2 H Eos % (Auto) 10.5 H Baso % (Auto) 0.9 Neut # (Auto) 3.2 Lymph # (Auto) 0.9 L [place] # (Auto) 0.7 Eos # (Auto) 0.6 H Baso # (Auto) 0.0 WBC Differential . Differential Comment Auto diff final POC Glucose 150 H <Anjali Li - Last Filed: 09/20/18 14:07> - Labs CBC & Chem 7: 09/20/18 10:36 09/19/18 05:13 Labs: Laboratory Results - last 24 hr 09/19/18 09/20/18 09/20/18 21:53 07:13 10:36 WBC 5.5 RBC 3.81 L Hgb 11.0 L Hct 31.7 L MCV 83.2 MCH 29.0 MCHC 34.8 RDW 15.1 Plt Count 164 MPV 8.4 Neut % (Auto) 59.2 Lymph % (Auto) 16.2 [place] % (Auto) 13.2 H Eos % (Auto) 10.5 H Baso % (Auto) 0.9 Neut # (Auto) 3.2 Lymph # (Auto) 0.9 L [place] # (Auto) 0.7 Eos # (Auto) 0.6 H Baso # (Auto) 0.0 WBC Differential . Differential Comment Auto diff final POC Glucose 212 H 148 H 09/20/18 09/20/18 13:03 17:09 WBC RBC Hgb Hct MCV MCH MCHC RDW Plt Count MPV Neut % (Auto) Lymph % (Auto) [place] % (Auto) Eos % (Auto) Baso % (Auto) Neut # (Auto) Lymph # (Auto) Latimer # (Auto) Eos # (Auto) Baso # (Auto) WBC Differential Differential Comment POC Glucose 150 H 138 H <Jose Tenorio - Last Filed: 09/20/18 18:59> Assessment and Plan (1) GI (gastrointestinal bleed) Status: Acute Code(s): K92.2 - Gastrointestinal hemorrhage, unspecified - Plan This patient is a 68-year-old male patient who has a medical history that includes atrial fibrillation, diverticulitis, colon polyps, diabetes, hypertension, hypothyroidism and CVA. Patient presented to the emergency room at [facility] on 09/18/2018 with complaints of difficulty ambulating and slurring speech. Of note, patient has a history of CVA in 2016 and has been on Eliquis and aspirin [address] of brain on done on noted no acute intracranial abnormality demonstrated and chronic white matter changes. Our service has been consulted to evaluate report of patient having bright red rectal bleeding this a.m. Upon consultation, patient reports one episode of bright red blood per rectum with stool this a.m. Patient denies any abdominal pain nausea or vomiting. He states last EGD was done in June 2018 where gastric ulcer was discovered. Patient has since been on Pantoprazole 40 mg p.o. daily at home as well as Eliquis 5 mg p.o. twice daily and Aspirin 81 mg p.o. daily. Patient denies any use of NSAIDs, states he is a social drinker and denies any tobacco use. 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 GI bleed /rectal bleeding Patient endorses bright red blood per rectum this a.m. x1. Currently on Eliquis 5 mg p.o. twice daily as well as aspirin 81 mg p.o. daily for history of atrial fibrillation/CVA/TIA. Last EGD done June 2018 revealed gastric ulcer with duodenal irritation. Patient on pantoprazole 40 mg p.o. daily. Discussed possible need for EGD , patient would like to hold off for now and discuss the above with Dr. Tenorio. I advised patient that we will continue to monitor for bleeding and monitor labs closely. Hemoglobin 11.0 hematocrit 31.7 platelet count 164. INR 1.1 Plan -N.p.o. for now -Monitor for bleeding -Transfuse if needed -Continue PPI -Monitor hemoglobin and hematocrit -Supportive care -Further recommendations to follow This patient has been seen by myself and Dr. Tenroio and this note is written on his behalf - Attending Attestation Dr. Tenorio <Anjali Li - Last Filed: 09/20/18 14:07> (1) GI (gastrointestinal bleed) Status: Acute Code(s): K92.2 - Gastrointestinal hemorrhage, unspecified - Plan Patient seen and examined Agree with above Continue with current supportive care Monitor labs The patient last took his Eliquis this morning and as such I think to pursue an endoscopy we will need to wait for 2 days and I would advise to pursue an EGD and a colonoscopy on Sunday unless there is active bleeding <Jose Tenorio - Last Filed: 09/20/18 18:59>
[2018-09-20] MEDS: Dextrose 5%/NaCl 0.9% Inj 1,000 ML IV.CONT SCH (15:18)
--- NOTE | 2018-09-20 19:02 | ECHRPT ---
Indication: SEPSIS ENDOCARDITIS CONCLUSIONS The left ventricular systolic function is grossly normal on limited imaging. Normal left atrial appendage size with no evidence of thrombus formation. Normal atrial septal thickness without atrial level shunting by limited color doppler interrogation. Trace mitral valve regurgitation. 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 BP: / HR: Rhythm: Technical Quality:Good Medications Complications Proc. Components Anesthesia at the bedside for sedation. FINDINGS LEFT VENTRICLE Wall thickness is normal. Normal left ventricular size. The left ventricular systolic function is grossly normal on limited imaging. RIGHT VENTRICLE Grossly normal LEFT ATRIUM The left atrial size is normal. RIGHT ATRIUM The right atrial size is normal. ATRIAL APPENDAGES Normal left atrial appendage size with no evidence of thrombus formation. The velocities in the left atrial appendage are reduced. ATRIAL SEPTUM Normal atrial septal thickness without atrial level shunting by limited color doppler interrogation. AORTA The aortic root and proximal ascending aorta are normal in size on limited imaging. MITRAL VALVE Structurally normal mitral valve. Trace mitral valve regurgitation. No mitral valve stenosis. AORTIC VALVE Trileaflet aortic valve. Aortic valve sclerosis is present. No aortic valve regurgitation. No aortic valve stenosis. 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 TRICUSPID VALVE Structurally normal tricuspid valve. There is trace tricuspid valve regurgitation. No tricuspid valv e stenosis. VESSELS The pulmonary valve is not well visualized. No pulmonary valve regurgitation. Willy Davis DO (Electronically Signed) Final Date:20 September 2018 19:01
[2018-09-20 20:18] LABS: Baso % (Auto) 0.8 % (0.0-2.0); Eos # (Auto) 0.5 th/mm3 (0.0-0.4); Eos % (Auto) 8.9 % (0.0-4.0); Hemoglobin 11.6 gm/dL (13.0-17.0); Lymph # (Auto) 1.2 th/mm3 (1.0-4.8); Lymph % (Auto) 22.9 % (9.0-44.0); Mean Corpuscular Hemoglobin 27.3 pg (27.0-34.0); Mean Corpuscular Volume 82.6 fL (80.0-100.0); Mean Platelet Volume 9.1 fL (7.0-11.0); Mono # (Auto) 0.5 th/mm3 (0.0-0.9); Neut # (Auto) 3.1 th/mm3 (1.8-7.7); Neut % (Auto) 57.4 % (16.0-70.0); Platelet Count 193 th/mm3 (150-450); Red Blood Count 4.24 mil/mm3 (4.50-5.90); Red Cell Distribution Width 15.2 % (11.6-17.2); White Blood Count 5.4 th/mm3 (4.0-11.0)
[2018-09-20] MEDS: Temazepam 15 MG Capsule PO PRN (23:10)
--- NOTE | 2018-09-20 23:41 | MB ---
cc: Willy Davis DO DATE: 09/20/2018 REASON FOR CONSULTATION: TIA on anticoagulation. HISTORY OF PRESENT ILLNESS: Sherman Guerrero is a pleasant 68-year-old male who presented to [facility] Emergency Room with the complaints of difficulty ambulating and slurred speech. The patient has a history of prior CVA in October 2017 and was placed on Eliquis. After this, he stopped the Eliquis due to titus and then had another event. He was placed back on Eliquis and aspirin was added. Apparently, since that time, the patient has done relatively well, but then 2 days ago, he started having a severe headache and he felt like he had difficulty raising his head off the pillow and stayed in bed most of the day. He has noted some generalized weakness and has had to use a cane to ambulate. He has had right-sided weakness from his original stroke, but felt like it was more weak the day before admission. His also noticed that he had difficulty with words as well as recall and cognition. He was evaluated by neurology and due to the concern for a TIA while on anticoagulation, I was asked to see him. In seeing him, he is currently hemodynamically stable and feels that most of his neurological deficits have gotten somewhat better. During my evaluation, we were setting him up to have a transesophageal echocardiogram. Before making it down stairs, he had an episode of bright red blood in his stool. He states that he had a similar type episode and had a gastric ulcer and was placed on Protonix at that time, which helped out. PAST MEDICAL HISTORY: 1. Atrial fibrillation. 2. History of CVA. 3. Anxiety. 4. BPH. 5. COPD. 6. Diabetic neuropathy. 7. Lumbar degenerative disk disease. 8. GERD. 9. History of ulcer. 10. Hypertension. 11. Hyperlipidemia. 12. Hypothyroidism. 13. Psoriasis. PAST SURGICAL HISTORY: 1. Colonic resection for diverticulitis and colitis. 2. Incisional hernia repair. 3. Anterior cervical fusion. 4. Paravertebral nerve block. 5. Lumbar spinal diskectomy. 6. Colonoscopy showing colitis and low-grade edematous polyp. 7. EGD showing gastric ulcer. ALLERGIES: 1. DOXYCYCLINE. 2. MINOCYCLINE. 3. TIGECYCLINE. 4. BENAZEPRIL. MEDICATIONS: 1. Synthroid 150 mcg daily. 2. Tramadol 50 mg every 6 hours as needed. 3. Eliquis 5 mg b.i.d. 4. Fluconazole 2 sprays daily. 5. Tresiba 30 units every night. 6. Victoza 1.2 mg daily. 7. Aspirin 81 mg daily. 8. Norvasc 5 mg daily. 9. Atenolol 25 mg daily. 10. Rosuvastatin 5 mg daily. 11. Protonix 40 mg daily. FAMILY HISTORY: Denies premature coronary artery disease or sudden cardiac within the family. SOCIAL HISTORY: The patient previously smoked a pack a day for approximately 45 years, but has not smoked in the past 3 years. He drinks 2 glasses of wine every other day. Denies drug abuse. REVIEW OF SYSTEMS: Fourteen systems were reviewed including osteopathic. Pertinent positives and negatives above, otherwise negative. PHYSICAL EXAMINATION: VITAL SIGNS: Temperature 97.8, heart rate 88, blood pressure 133/78, respirations 20, pulse oximetry 95% on room air. GENERAL: The patient appears well, in no acute distress, alert, awake and oriented x 3. HEENT: Extraocular muscles intact. Mucous membranes moist. NECK: Supple. No JVD at 45 degrees. No carotid bruits heard bilaterally. Carotid upstroke is brisk in nature. HEART: Irregularly irregular. Positive first and second heart sounds. LUNGS: Clear to auscultation bilaterally. No wheezes, rales or rhonchi. ABDOMEN: Soft, nontender, nondistended. No organomegaly noted. EXTREMITIES: Show no clubbing, cyanosis or edema. Femoral and distal pulses are intact bilaterally. NEUROLOGIC: Chronic right-sided weakness. SKIN: Warm, dry and intact. OSTEOPATHIC: No kyphoscoliosis, lordosis or paraspinal tender points. LABORATORY DATA: Hemoglobin 11.6, hematocrit 35.0, platelets 193. Potassium 3.5, BUN 17, creatinine 1.25. Electrocardiogram (09/18/2018 at 0147 hours), atrial fibrillation, right bundle branch block, ST-T wave changes anterolaterally, no significant change from previous. IMPRESSION: 1. Transient ischemic attack. 2. History of cerebrovascular accident. 3. Atrial fibrillation. 4. Gastrointestinal bleed with a history of colitis. 5. Diabetes. 6. Hypertension. RECOMMENDATIONS: 1. Mr. Guerrero presented with what appears to be a TIA while on anticoagulation. 2. I did discuss with him consideration of changing his anticoagulant from Eliquis to Coumadin, but there is no data to support this as far as I know in the literature. He states that he would not go on Coumadin. Ultimately, I do believe that there is further data to switch him from one NOAC to another. In the studies, even while on NOACs, there is still a risk of stroke. 3. We will plan on doing a transesophageal echocardiogram to rule out current intracardiac thrombus or PFO. 4. He will be seen by GI for further consideration of GI bleed. 5. Ultimately, he may be considered for a Watchman procedure, but even with this, he would need to be able to stay on anticoagulation for at least 45 days post procedure, but this may decrease his risk of stroke as well as a decrease his anticoagulation. This will be reconsidered outpatient. 6. Further recommendations will be made based on the hospital course. Thank you for allowing me to see Sherman Guerrero. If there are any questions, please do not hesitate to call. DO WEI Barbour/yvonne , 10:51 PM , 11:07 PM
[2018-09-21] MEDS: Levothyroxine 150 MCG Tablet PO SCH (05:18)
[2018-09-21] MEDS: Insulin NovoLOG Aspart Correctional Sugar Inj SQ SCH ×4 (08:35→20:30)
[2018-09-21] MEDS: Senna/Docusate Sodium 8.6/50 MG Tablet PO SCH ×2 (08:41→20:29)
--- NOTE | 2018-09-21 10:05 | P.PNIM ---
Subjective Interval history: last bloody bm last night. Physical Exam Vital signs: Last Vital Signs Temp 97.4 F L 09/21/18 08:00 Pulse 78 09/21/18 08:00 Resp 19 09/21/18 08:00 BP 149/97 H 09/21/18 08:00 Pulse Ox 99 09/21/18 08:00 Narrative: nad no labored breathing no dysarthria or facial droop heart irreg lung cta abd s/nt ext no edema Results Labs CBC & Chem 7: 09/20/18 19:28 09/19/18 05:13 Assessment and Plan Assessment (1) Transient cerebral ischemia: Code(s): G45.9 - Transient cerebral ischemic attack, unspecified Status: Acute (2) GI (gastrointestinal bleed): Code(s): K92.2 - Gastrointestinal hemorrhage, unspecified Status: Acute (3) HTN (hypertension): Code(s): I10 - Essential (primary) hypertension Status: Chronic (4) Diabetes: Code(s): E11.9 - Type 2 diabetes mellitus without complications Status: Chronic (5) A-fib: Code(s): I48.91 - Unspecified atrial fibrillation Status: Chronic Plan TIA Hx of CVA - Pt is a 68 y/o WM with atrial fibrillation s/p cardioversion x 2, diabetes, hypertension, hypothyroidism, and prior history of CVA in 10/2017 and is on Eliquis and was recently admitted to [facility] [place] in 06/2018 with similar complaints at that time and seen by Neurology and ASA 81mg daily was added to his regimen which he has reportedly been compliant with. - He presented to the ED on 09/18/18 with a complaints of headache that began two days ago (frontal) and yesterday started having increased weakness on the right side and some speech difficulties. - Neurology has been consulted - Head CT (09/18/18) - No acute abnormality, chronic white matter ischemic changes. Previous Head CT (06/26/18) - Mild to moderate periventricular and subcortical white matter small vessel ischemic changes bilaterally - Old lacunar infarcts involving the left lopes radiata and basal ganglia - Old lacunar infarct involving the right cesar - Mild stable cerebral atrophy, but no acute infarct, acute hemorrhage, midline shift or extra-axial bleed. - Head CTA (06/26/18) - Dense atherosclerotic calcification of the distal internal carotid arteries at skull base - Otherwise, intracranial vessels are all patent without embolic event to explain current clinical symptoms. - Neck CTA (06/26/18) - The proximal left internal carotid artery there is moderate plaque formation with 40-50% stenosis, not hemodynamically significant - The proximal right internal carotid artery there is mild plaque formation with less than 30% stenosis - Both vertebral arteries are patent, dominant right. -MRI brain showed microvascular dz, old lacunar cva' and no acute mass/hemorrhage or cva. -repeat cta neck hemodynamically insig. plaque. - Pt noted to be in A. fib, rate controlled. - Pt is on rosuvastatin, - PT/OT/ST evaluation - Telemetry - Neuro checks - neuro consult to cardiology...LAN on 09/20. no thrombus -Pt now with gib. hold eliquis and asa - egd/colonoscopy for Sunday -Discussed alternate anticoagulation regiment upon dc and pt agrees. He understands no data to show any better outcome of stroke prevention GIB see above Atrial fibrillation see above Diabetes mellitus Diabetic nephropathy - Hgb A1c 6/7% on 06/27/18. - NovoLog sliding scale insulin. - May need to add Levemir depending on pts next few BS readings. - Accu checks Hypertension - Pt currently being allowed permissive hypertension with parameters. - BP stable for now Postlaminectomy syndrome - Continue home medication Hypothyroidism - Continue medication Hyperlipidemia - COnt. statin Anxiety - Progress Note: Quality VTE Deep Vein Thrombosis/Pulmonary Embolism Present on Admission: No _ (1) GI (gastrointestinal bleed) Qualifiers: GI bleed type/associated pathology: Gastritis type: (2) Transient cerebral ischemia Qualifiers: Transient cerebral ischemia type: unspecified Qualified Code(s): G45.9 - Transient cerebral ischemic attack, unspecified (3) HTN (hypertension) Qualifiers: Hypertension type: (4) Diabetes Qualifiers: Diabetes mellitus type: Diabetes mellitus terminal gauger insulin use: Diabetes mellitus complication status: Diabetes mellitus complication detail: Diabetic retinopathy severity: Proliferative retinopathy type: Diabetes mellitus macular edema: Laterality: Chronic kidney disease stage: (5) A-fib Qualifiers: Atrial fibrillation type:
[2018-09-21 11:21] LABS: Baso % (Auto) 0.7 % (0.0-2.0); Eos # (Auto) 0.6 th/mm3 (0.0-0.4); Eos % (Auto) 10.4 % (0.0-4.0); Hematocrit 37.4 % (39.0-51.0); Hemoglobin 12.5 gm/dL (13.0-17.0); Lymph # (Auto) 1.4 th/mm3 (1.0-4.8); Lymph % (Auto) 22.9 % (9.0-44.0); Mean Corpuscular HGB Conc 33.3 % (32.0-36.0); Mean Corpuscular Hemoglobin 28.3 pg (27.0-34.0); Mean Corpuscular Volume 85.1 fL (80.0-100.0); Mean Platelet Volume 8.6 fL (7.0-11.0); Mono # (Auto) 0.5 th/mm3 (0.0-0.9); Mono % (Auto) 8.9 % (0.0-8.0); Neut # (Auto) 3.5 th/mm3 (1.8-7.7); Neut % (Auto) 57.1 % (16.0-70.0); Platelet Count 224 th/mm3 (150-450); Red Cell Distribution Width 15.6 % (11.6-17.2); White Blood Count 6.1 th/mm3 (4.0-11.0)
--- NOTE | 2018-09-21 13:46 | P.PNGI ---
Subjective Interval history: Pt is sitting in chair, cont. to have rectal bleeding, no nausea, no vomiting or abd pain Physical Exam Vital signs: Vital Signs 09/20/18 16:00 09/20/18 17:43 09/20/18 20:00 Temperature 97.3 F L 97.9 F Pulse Rate 87 82 96 H Respiratory Rate 20 18 Blood Pressure 129/82 144/86 H Pulse Oximetry 97 99 09/20/18 23:13 09/21/18 04:00 09/21/18 08:00 Temperature 98.5 F 97.6 F 97.4 F L Pulse Rate 88 74 78 Respiratory Rate 15 18 19 Blood Pressure 152/84 H 156/89 H 149/97 H Pulse Oximetry 95 100 99 09/21/18 08:40 09/21/18 11:57 Temperature 98.1 F Pulse Rate 116 H Respiratory Rate 18 Blood Pressure 144/77 H Pulse Oximetry 97 98 Intake & Output 09/20/18 09/21/18 09/21/18 18:59 06:59 18:59 Intake Total 473 / 473 Output Total 300 / 300 700 / 700 Balance 173 / 173 -700 / -700 Intake: IV 473 / 473 D5W/Normal Saline Inj 1,000 ML 473 / 473 @ 42 mls/hr IV.CONT .[id number] [facility] Rx#:[id number] Output: Urine 300 / 300 700 / 700 Other: # Voids 3 Date of Last Bowel Movement 09/20/18 09/20/18 # Bowel Movements 1 - Constitutional no acute distress - Routine HEENT Exam Head: Present: normocephalic - Routine Neck Exam Present: supple - Routine Respiratory Exam Present: CTA bilaterally - Routine Cardiovascular Exam Present: RRR - Routine Abdominal Exam Present: soft, normoactive bowel sounds. Absent: tenderness, distended - Routine Skin Exam Present: intact, dry - Routine Neurological Exam Present: alert, oriented X3 Results - Labs CBC & Chem 7: 09/21/18 11:00 09/19/18 05:13 Laboratory Results - last 24 hr 09/20/18 09/20/18 09/20/18 17:09 19:28 20:02 WBC 5.4 RBC 4.24 L Hgb 11.6 L Hct 35.0 L MCV 82.6 MCH 27.3 MCHC 33.0 RDW 15.2 Plt Count 193 MPV 9.1 Neut % (Auto) 57.4 Lymph % (Auto) 22.9 [place] % (Auto) 10.0 H Eos % (Auto) 8.9 H Baso % (Auto) 0.8 Neut # (Auto) 3.1 Lymph # (Auto) 1.2 [place] # (Auto) 0.5 Eos # (Auto) 0.5 H Baso # (Auto) 0.0 WBC Differential . Differential Comment Auto diff final POC Glucose 138 H 189 H 09/21/18 09/21/18 09/21/18 07:38 11:00 12:26 WBC 6.1 RBC 4.40 L Hgb 12.5 L Hct 37.4 L MCV 85.1 MCH 28.3 MCHC 33.3 RDW 15.6 Plt Count 224 MPV 8.6 Neut % (Auto) 57.1 Lymph % (Auto) 22.9 [place] % (Auto) 8.9 H Eos % (Auto) 10.4 H Baso % (Auto) 0.7 Neut # (Auto) 3.5 Lymph # (Auto) 1.4 [place] # (Auto) 0.5 Eos # (Auto) 0.6 H Baso # (Auto) 0.0 WBC Differential . Differential Comment Auto diff final POC Glucose 153 H 276 H Assessment and Plan (1) GI (gastrointestinal bleed) Status: Acute Code(s): K92.2 - Gastrointestinal hemorrhage, unspecified - Plan GI bleed /rectal bleeding- Pt cont. to have rectal bleeding. hgb stable 12.5 Last EGD done June 2018 revealed gastric ulcer with duodenal irritation. Patient on pantoprazole 40 mg p.o. daily. - atrial fibrillation/CVA/TIA. Eliquis on hold, cardiology on the case Plan - Clear liquid - EGD/colonoscopy on Sunday - Golytely tomorrow - NPO mn -Monitor for bleeding -Transfuse if needed -Continue PPI -Monitor hemoglobin and hematocrit -Supportive care -Further recommendations to follow This patient has been seen by myself and Dr. Jacobs and this note is written on her behalf
--- NOTE | 2018-09-21 15:40 | P.PNCA ---
Subjective Interval history: Continues to have episodes of bright red blood in bowel movements Medications and Allergies Active Medications: Active Medications Acetaminophen (Tylenol) 650 mg PO Q4H PRN PRN Reason: Temp > 100.4 Al Hydroxide/Mg Hydroxide (Milk Of Magnesia Liq) 30 ml PO Q12H PRN PRN Reason: Mild Constipation Atorvastatin Calcium (Lipitor) 10 mg PO DAILY [facility] Last Admin: 09/21/18 08:43 Dose: 10 mg Dextrose (D50w Vial) 50 ml IV.PUSH UNSCH PRN PRN Reason: PER HYPOGLYCEMIA PROTOCOL Fluticasone Propionate (Flonase Nasal [place]) 2 spray EACH NARE DAILY [facility] Last Admin: 09/21/18 08:44 Dose: 2 spray Glucagon (Glucagon Inj) 1 mg OTHER PRN PRN PRN Reason: for Hypoglycemia Protocol Dextrose/Sodium Chloride (D5w/Normal Saline Inj) 1,000 mls @ 42 mls/hr IV.CONT .[id number] [facility] Last Infusion: 09/21/18 06:27 Dose: 42 mls/hr Insulin Aspart (Novolog Insulin [place] Sugar Inj) 0 unit SQ ACHS [facility]; Protocol Last Admin: 09/21/18 13:16 Dose: 5 unit Levothyroxine Sodium (Synthroid) 150 mcg PO DAILY@0600 [facility] Last Admin: 09/21/18 05:18 Dose: 150 mcg Ondansetron HCl (Zofran Inj) 4 mg IV.PUSH Q6H PRN PRN Reason: NAUSEA OR VOMITING Pantoprazole Sodium (Protonix) 40 mg PO DAILY [facility] Last Admin: 09/21/18 08:43 Dose: 40 mg Polyethylene Glycol/Electrolytes (Colyte Liq) 4,000 ml PO ONCE ONE Stop: 09/22/18 16:01 Senna/Docusate Sodium (Rachel-Colace) 1 tab PO BID [facility] Last Admin: 09/21/18 08:41 Dose: Not Given Sennosides (Senokot) 17.2 mg PO Q12H PRN PRN Reason: Moderate Constipation Sodium Chloride (Ns Flush) 2 ml IV.FLUSH UNSCH PRN PRN Reason: FLUSH AFTER USING IV ACCESS Sodium Chloride (Ns Flush) 2 ml IV.FLUSH BID [facility] Last Admin: 09/21/18 08:41 Dose: 2 ml Temazepam (Restoril) 15 mg PO HS PRN PRN Reason: INSOMNIA Last Admin: 09/20/18 23:10 Dose: 15 mg Tramadol HCl (Ultram) 50 mg PO Q6H PRN PRN Reason: Back Pain Last Admin: 09/20/18 23:10 Dose: 50 mg Allergies Allergy/AdvReac Type Severity Reaction Status Date / Time doxycycline Allergy Severe Hives Verified 09/18/18 01:39 minocycline Allergy Severe Hives Verified 09/18/18 01:39 tigecycline Allergy Severe Hives Verified 09/18/18 01:39 benazepril AdvReac Severe PT Verified 09/18/18 01:39 ALLERGIC TO LOTREL Home Medications Medication Instructions Recorded Confirmed Type apixaban [Eliquis] 5 mg PO BID 06/26/18 09/18/18 History fluticasone [Allergy Relief 2 spray INTRANASAL DAILY 06/26/18 09/18/18 History (fluticasone)] insulin degludec [Tresiba 30 unit SUB-Q HS 06/26/18 09/18/18 History FlexTouch U-100] levothyroxine 150 mcg PO DAILY 06/26/18 09/18/18 History liraglutide [Victoza 3-Darron] 1.2 mg SUB-Q DAILY 06/26/18 09/18/18 History tramadol 50 mg PO Q6H PRN 06/26/18 09/18/18 History rosuvastatin 5 mg PO DAILY 07/18/18 09/18/18 History pantoprazole [Protonix] 40 mg PO DAILY 09/18/18 09/18/18 History Physical Exam Vital signs: Vital Signs 09/20/18 16:00 09/20/18 17:43 09/20/18 20:00 Temperature 97.3 F L 97.9 F Pulse Rate 87 82 96 H Respiratory Rate 20 18 Blood Pressure 129/82 144/86 H Pulse Oximetry 97 99 09/20/18 23:13 09/21/18 04:00 09/21/18 08:00 Temperature 98.5 F 97.6 F 97.4 F L Pulse Rate 88 74 78 Respiratory Rate 15 18 19 Blood Pressure 152/84 H 156/89 H 149/97 H Pulse Oximetry 95 100 99 09/21/18 08:40 09/21/18 11:57 Temperature 98.1 F Pulse Rate 116 H Respiratory Rate 18 Blood Pressure 144/77 H Pulse Oximetry 97 98 Intake & Output 09/20/18 09/21/18 09/21/18 18:59 06:59 18:59 Intake Total 473 / 473 Output Total 300 / 300 700 / 700 Balance 173 / 173 -700 / -700 Intake: IV 473 / 473 D5W/Normal Saline Inj 1,000 ML 473 / 473 @ 42 mls/hr IV.CONT .[id number] [facility] Rx#:[id number] Output: Urine 300 / 300 700 / 700 Other: # Voids 3 Date of Last Bowel Movement 09/20/18 09/20/18 # Bowel Movements 1 Narrative: GENERAL: NAD, AAOx3 SKIN: Warm and dry. HEAD: Atraumatic. Normocephalic. EYES: Pupils equal and round. No scleral icterus. No injection or drainage. ENT: No nasal bleeding or discharge. Mucous membranes pink and moist. NECK: Trachea midline. No JVD. CARDIOVASCULAR: Irregularly irregular RESPIRATORY: No accessory muscle use. Clear to auscultation. Breath sounds equal bilaterally. GASTROINTESTINAL: Abdomen soft, non-tender, nondistended. Hepatic and splenic margins not palpable. MUSCULOSKELETAL: Extremities without clubbing, cyanosis, or edema. No obvious deformities. NEUROLOGICAL: Awake and alert. No obvious cranial nerve deficits. PSYCHIATRIC: Appropriate mood and affect; insight and judgment normal. Results 09/21/18 11:00 09/19/18 05:13 CBC 09/20/18 09/20/18 09/21/18 Range/Units 10:36 19:28 11:00 WBC 5.5 5.4 6.1 (4.0-11.0) th/mm3 RBC 3.81 L 4.24 L 4.40 L (4.50-5.90) mil/mm3 Hgb 11.0 L 11.6 L 12.5 L (13.0-17.0) gm/dL Hct 31.7 L 35.0 L 37.4 L (39.0-51.0) % Plt Count 164 193 224 (150-450) th/mm3 Neut # (Auto) 3.2 3.1 3.5 (1.8-7.7) th/mm3 Lymph # (Auto) 0.9 L 1.2 1.4 (1.0-4.8) th/mm3 [place] # (Auto) 0.7 0.5 0.5 (0.0-0.9) th/mm3 Eos # (Auto) 0.6 H 0.5 H 0.6 H (0.0-0.4) th/mm3 Baso # (Auto) 0.0 0.0 0.0 (0.0-0.2) th/mm3 Intake and Output 09/21/18 09/21/18 09/21/18 06:59 14:59 22:59 Intake Total 473 / 473 Output Total 300 / 300 700 / 700 Balance 173 / 173 -700 / -700 Intake: IV 473 / 473 D5W/Normal Saline Inj 1,000 ML 473 / 473 @ 42 mls/hr IV.CONT .[id number] [facility] Rx#:[id number] Output: Urine 300 / 300 700 / 700 Other: # Voids 3 Assessment and Plan - Assessment (1) GI (gastrointestinal bleed) Code(s): K92.2 - Gastrointestinal hemorrhage, unspecified Status: Acute (2) Transient cerebral ischemia Code(s): G45.9 - Transient cerebral ischemic attack, unspecified Status: Acute (3) CVA (cerebral vascular accident) Code(s): I63.9 - Cerebral infarction, unspecified Status: Suspected (4) HTN (hypertension) Code(s): I10 - Essential (primary) hypertension Status: Chronic (5) Diabetes Code(s): E11.9 - Type 2 diabetes mellitus without complications Status: Chronic (6) A-fib Code(s): I48.91 - Unspecified atrial fibrillation Status: Chronic - Plan 1) TIA with history of CVA On anticoagulation Consideration of changing anticoagulant, but no data to support There is still always a risk of ischemic CVA on anticoagulation even in the studies 2) Mishal's exscrensce Case studies of possible cause of CVA, but on anticoagulation and antiplatelet hard to believe it would still cause 3) GI bleed Previous ulcer, but now appears to be lower GI bleed Plan for EGD/Cscope Eliquis/ASA on hold 4) May be Watchman candidate in the future Will need to workup outpatient (2) Transient cerebral ischemia Qualifiers: Transient cerebral ischemia type: unspecified Qualified Code(s): G45.9 - Transient cerebral ischemic attack, unspecified
[2018-09-21] MEDS: Dextrose 5%/NaCl 0.9% Inj 1,000 ML IV.CONT SCH (17:39)
[2018-09-21] MEDS: Temazepam 15 MG Capsule PO PRN (23:04)
[2018-09-22] MEDS: Levothyroxine 150 MCG Tablet PO SCH (05:31)
[2018-09-22] MEDS: Insulin NovoLOG Aspart Correctional Sugar Inj SQ SCH ×4 (08:22→21:27)
[2018-09-22] MEDS: Senna/Docusate Sodium 8.6/50 MG Tablet PO SCH ×2 (08:24→21:28)
[2018-09-22 10:06] LABS: Calcium 8.7 mg/dL (8.5-10.1); Carbon Dioxide 29.2 meq/L (21.0-32.0); Potassium 3.4 meq/L (3.5-5.1)
--- NOTE | 2018-09-22 10:48 | P.PNIM ---
Subjective Interval history: blood with each bm Physical Exam Vital signs: Last Vital Signs Temp 97.4 F L 09/22/18 07:52 Pulse 72 09/22/18 07:52 Resp 18 09/22/18 07:52 BP 169/86 H 09/22/18 07:52 Pulse Ox 99 09/22/18 07:52 Narrative: nad no labored breathing no dysarthria or facial droop heart irreg lung cta abd s/nt ext no edema Results Labs CBC & Chem 7: 09/21/18 11:00 09/22/18 09:00 Assessment and Plan Assessment (1) GI (gastrointestinal bleed): Code(s): K92.2 - Gastrointestinal hemorrhage, unspecified Status: Acute (2) Transient cerebral ischemia: Code(s): G45.9 - Transient cerebral ischemic attack, unspecified Status: Acute (3) CVA (cerebral vascular accident): Code(s): I63.9 - Cerebral infarction, unspecified Status: Suspected (4) HTN (hypertension): Code(s): I10 - Essential (primary) hypertension Status: Chronic (5) Diabetes: Code(s): E11.9 - Type 2 diabetes mellitus without complications Status: Chronic (6) A-fib: Code(s): I48.91 - Unspecified atrial fibrillation Status: Chronic Plan TIA Hx of CVA - Pt is a 68 y/o WM with atrial fibrillation s/p cardioversion x 2, diabetes, hypertension, hypothyroidism, and prior history of CVA in 10/2017 and is on Eliquis and was recently admitted to [facility] [place] in 06/2018 with similar complaints at that time and seen by Neurology and ASA 81mg daily was added to his regimen which he has reportedly been compliant with. - He presented to the ED on 09/18/18 with a complaints of headache that began two days ago (frontal) and yesterday started having increased weakness on the right side and some speech difficulties. - Neurology has been consulted - Head CT (09/18/18) - No acute abnormality, chronic white matter ischemic changes. Previous Head CT (06/26/18) - Mild to moderate periventricular and subcortical white matter small vessel ischemic changes bilaterally - Old lacunar infarcts involving the left lopes radiata and basal ganglia - Old lacunar infarct involving the right cesar - Mild stable cerebral atrophy, but no acute infarct, acute hemorrhage, midline shift or extra-axial bleed. - Head CTA (06/26/18) - Dense atherosclerotic calcification of the distal internal carotid arteries at skull base - Otherwise, intracranial vessels are all patent without embolic event to explain current clinical symptoms. - Neck CTA (06/26/18) - The proximal left internal carotid artery there is moderate plaque formation with 40-50% stenosis, not hemodynamically significant - The proximal right internal carotid artery there is mild plaque formation with less than 30% stenosis - Both vertebral arteries are patent, dominant right. -MRI brain showed microvascular dz, old lacunar cva' and no acute mass/hemorrhage or cva. -repeat cta neck hemodynamically insig. plaque. - Pt noted to be in A. fib, rate controlled. - Pt is on rosuvastatin, - PT/OT/ST evaluation - Telemetry - Neuro checks - neuro consult to cardiology...LAN on 09/20. no thrombus -Pt now with gib. hold eliquis and asa - egd/colonoscopy for Sunday -Discussed alternate anticoagulation regiment upon dc and pt agrees. He understands no data to show any better outcome of stroke prevention He is also considering the Watchman procedure for afib GIB see above Atrial fibrillation see above Diabetes mellitus Diabetic nephropathy - Hgb A1c 6/7% on 06/27/18. - NovoLog sliding scale insulin. - pt on d5 gtt until after the endoscopy - Accu checks Hypertension - Pt currently being allowed permissive hypertension with parameters. - BP stable for now Postlaminectomy syndrome - Continue home medication Hypothyroidism - Continue medication Hyperlipidemia - COnt. statin Anxiety - Progress Note: Quality VTE Deep Vein Thrombosis/Pulmonary Embolism Present on Admission: No _ (1) GI (gastrointestinal bleed) Qualifiers: GI bleed type/associated pathology: Gastritis type: (2) Transient cerebral ischemia Qualifiers: Transient cerebral ischemia type: unspecified Qualified Code(s): G45.9 - Transient cerebral ischemic attack, unspecified (3) CVA (cerebral vascular accident) Qualifiers: CVA mechanism: Precerebral and cerebral artery: Laterality of affected vessel: (4) HTN (hypertension) Qualifiers: Hypertension type: (5) Diabetes Qualifiers: Diabetes mellitus type: 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
[2018-09-22] MEDS: Dextrose 5%/NaCl 0.9% Inj 1,000 ML IV.CONT SCH (13:03)
[2018-09-22] MEDS ORDERED: PEG 3350/E-Lyte Soln 4000 ML Bottle PO ONE (16:00)
--- NOTE | 2018-09-22 16:37 | P.PNCA ---
Subjective Interval history: No events overnight Still having bright red blood with every bowel movement Medications and Allergies Active Medications: Active Medications Acetaminophen (Tylenol) 650 mg PO Q4H PRN PRN Reason: Temp > 100.4 Al Hydroxide/Mg Hydroxide (Milk Of Magnesia Liq) 30 ml PO Q12H PRN PRN Reason: Mild Constipation Atorvastatin Calcium (Lipitor) 10 mg PO DAILY [facility] Last Admin: 09/22/18 08:24 Dose: 10 mg Dextrose (D50w Vial) 50 ml IV.PUSH UNSCH PRN PRN Reason: PER HYPOGLYCEMIA PROTOCOL Fluticasone Propionate (Flonase Nasal Sealy) 2 spray EACH NARE DAILY [facility] Last Admin: 09/22/18 08:34 Dose: 2 spray Glucagon (Glucagon Inj) 1 mg OTHER PRN PRN PRN Reason: for Hypoglycemia Protocol Dextrose/Sodium Chloride (D5w/Normal Saline Inj) 1,000 mls @ 42 mls/hr IV.CONT .[id number] [facility] Last Admin: 09/22/18 13:03 Dose: 42 mls/hr Insulin Aspart (Novolog Insulin Correctional Sugar Inj) 0 unit SQ ACHS [facility]; Protocol Last Admin: 09/22/18 13:00 Dose: 3 unit Levothyroxine Sodium (Synthroid) 150 mcg PO DAILY@0600 [facility] Last Admin: 09/22/18 05:31 Dose: 150 mcg Lorazepam (Ativan) 1 mg PO Q8H PRN PRN Reason: ANXIETY Ondansetron HCl (Zofran Inj) 4 mg IV.PUSH Q6H PRN PRN Reason: NAUSEA OR VOMITING Pantoprazole Sodium (Protonix) 40 mg PO DAILY [facility] Last Admin: 09/22/18 08:24 Dose: 40 mg Senna/Docusate Sodium (Rachel-Colace) 1 tab PO BID [facility] Last Admin: 09/22/18 08:24 Dose: Not Given Sennosides (Senokot) 17.2 mg PO Q12H PRN PRN Reason: Moderate Constipation Sodium Chloride (Ns Flush) 2 ml IV.FLUSH UNSCH PRN PRN Reason: FLUSH AFTER USING IV ACCESS Sodium Chloride (Ns Flush) 2 ml IV.FLUSH BID [facility] Last Admin: 09/22/18 08:34 Dose: 2 ml Temazepam (Restoril) 15 mg PO HS PRN PRN Reason: INSOMNIA Last Admin: 09/21/18 23:04 Dose: 15 mg Tramadol HCl (Ultram) 50 mg PO Q6H PRN PRN Reason: Back Pain Last Admin: 09/21/18 23:04 Dose: 50 mg Allergies Allergy/AdvReac Type Severity Reaction Status Date / Time doxycycline Allergy Severe Hives Verified 09/18/18 01:39 minocycline Allergy Severe Hives Verified 09/18/18 01:39 tigecycline Allergy Severe Hives Verified 09/18/18 01:39 benazepril AdvReac Severe PT Verified 09/18/18 01:39 ALLERGIC TO LOTREL Home Medications Medication Instructions Recorded Confirmed Type apixaban [Eliquis] 5 mg PO BID 06/26/18 09/18/18 History fluticasone [Allergy Relief 2 spray INTRANASAL DAILY 06/26/18 09/18/18 History (fluticasone)] insulin degludec [Tresiba 30 unit SUB-Q HS 06/26/18 09/18/18 History FlexTouch U-100] levothyroxine 150 mcg PO DAILY 06/26/18 09/18/18 History liraglutide [Victoza 3-Darron] 1.2 mg SUB-Q DAILY 06/26/18 09/18/18 History tramadol 50 mg PO Q6H PRN 06/26/18 09/18/18 History rosuvastatin 5 mg PO DAILY 07/18/18 09/18/18 History pantoprazole [Protonix] 40 mg PO DAILY 09/18/18 09/18/18 History Physical Exam Vital signs: Vital Signs 09/21/18 20:00 09/21/18 23:06 09/22/18 04:00 Temperature 97.9 F 97.4 F L 97.9 F Pulse Rate 81 85 76 Respiratory Rate 18 18 Blood Pressure 160/92 H 156/98 H 144/84 H Pulse Oximetry 100 100 98 09/22/18 07:52 09/22/18 11:25 09/22/18 11:54 Temperature 97.4 F L 97.9 F Pulse Rate 72 91 H Respiratory Rate 18 18 Blood Pressure 169/86 H 156/81 H Pulse Oximetry 99 99 98 09/22/18 16:00 Temperature 97.4 F L Pulse Rate 87 Respiratory Rate 20 Blood Pressure 171/97 H Pulse Oximetry 99 Intake & Output 09/21/18 09/22/1809/22/18 19:59 06:59 18:59 Intake Total 1940 / 1940 Output Total 600 / 600 Balance 1340 / 1340 Intake: IV 1000 / 1000 D5W/Normal Saline Inj 1,000 ML 1000 / 1000 @ 42 mls/hr IV.CONT .[id number] [facility] Rx#:[id number] Oral 940 / 940 Output: Urine 600 / 600 Other: # Voids 2 Date of Last Bowel Movement 09/21/18 Narrative: GENERAL: NAD, AAOx3 SKIN: Warm and dry. HEAD: Atraumatic. Normocephalic. EYES: Pupils equal and round. No scleral icterus. No injection or drainage. ENT: No nasal bleeding or discharge. Mucous membranes pink and moist. NECK: Trachea midline. No JVD. CARDIOVASCULAR: Irregularly irregular RESPIRATORY: No accessory muscle use. Clear to auscultation. Breath sounds equal bilaterally. GASTROINTESTINAL: Abdomen soft, non-tender, nondistended. Hepatic and splenic margins not palpable. MUSCULOSKELETAL: Extremities without clubbing, cyanosis, or edema. No obvious deformities. NEUROLOGICAL: Awake and alert. No obvious cranial nerve deficits. PSYCHIATRIC: Appropriate mood and affect; insight and judgment normal. Results 09/21/18 11:00 09/22/18 09:00 CBC 09/20/18 09/21/18 Range/Units 19:28 11:00 WBC 5.4 6.1 (4.0-11.0) th/mm3 RBC 4.24 L 4.40 L (4.50-5.90) mil/mm3 Hgb 11.6 L 12.5 L (13.0-17.0) gm/dL Hct 35.0 L 37.4 L (39.0-51.0) % Plt Count 193 224 (150-450) th/mm3 Neut # (Auto) 3.1 3.5 (1.8-7.7) th/mm3 Lymph # (Auto) 1.2 1.4 (1.0-4.8) th/mm3 Kimble # (Auto) 0.5 0.5 (0.0-0.9) th/mm3 Eos # (Auto) 0.5 H 0.6 H (0.0-0.4) th/mm3 Baso # (Auto) 0.0 0.0 (0.0-0.2) th/mm3 Comprehensive Metabolic Panel 09/22/18 Range/Units 09:00 Sodium 141 (136-145) meq/L Potassium 3.4 L (3.5-5.1) meq/L Chloride 104 (98-107) meq/L Carbon Dioxide 29.2 (21.0-32.0) meq/L BUN 12 (7-18) mg/dL Creatinine 1.23 (0.60-1.30) mg/dL Calcium 8.7 (8.5-10.1) mg/dL Intake and Output 09/22/18 09/22/18 09/22/18 06:59 14:59 22:59 Intake Total 1240 / 1240 700 / 700 Output Total 600 / 600 Balance 1240 / 1240 100 / 100 Intake: IV 1000 / 1000 D5W/Normal Saline Inj 1,000 ML 1000 / 1000 @ 42 mls/hr IV.CONT .[id number] [facility] Rx#:[id number] Oral 240 / 240 700 / 700 Output: Urine 600 / 600 Other: # Voids 2 Date of Last Bowel Movement 09/21/18 Assessment and Plan - Assessment (1) GI (gastrointestinal bleed) Code(s): K92.2 - Gastrointestinal hemorrhage, unspecified Status: Acute (2) Transient cerebral ischemia Code(s): G45.9 - Transient cerebral ischemic attack, unspecified Status: Acute (3) CVA (cerebral vascular accident) Code(s): I63.9 - Cerebral infarction, unspecified Status: Suspected (4) HTN (hypertension) Code(s): I10 - Essential (primary) hypertension Status: Chronic (5) Diabetes Code(s): E11.9 - Type 2 diabetes mellitus without complications Status: Chronic (6) A-fib Code(s): I48.91 - Unspecified atrial fibrillation Status: Chronic - Plan 1) TIA with history of CVA TIA on anticoagulation Consideration of changing anticoagulant, but no data to support There is still always a risk of ischemic CVA on anticoagulation even in the studies 2) Susu's exscrensce Case studies of possible cause of CVA, but on anticoagulation and antiplatelet hard to believe it would still cause 3) GI bleed Previous ulcer, but now appears to be lower GI bleed Plan for EGD/Cscope Eliquis/ASA on hold 4) May be Watchman candidate in the future Will need to workup outpatient (2) Transient cerebral ischemia Qualifiers: Transient cerebral ischemia type: unspecified Qualified Code(s): G45.9 - Transient cerebral ischemic attack, unspecified
[2018-09-22] MEDS ORDERED: Magnesium Citrate Liq 300 ML Bottle PO ONE ×2 (17:06→19:06)
--- NOTE | 2018-09-22 17:12 | P.PNGI ---
Subjective Interval history: Pt is resting in chair, blood with every Bm, no other issues. <Carmela Menezes - Last Filed: 09/22/18 17:10> Physical Exam Vital signs: Vital Signs 09/21/18 20:00 09/21/18 23:06 09/22/18 04:00 Temperature 97.9 F 97.4 F L 97.9 F Pulse Rate 81 85 76 Respiratory Rate 18 18 Blood Pressure 160/92 H 156/98 H 144/84 H Pulse Oximetry 100 100 98 09/22/18 07:52 09/22/18 11:25 09/22/18 11:54 Temperature 97.4 F L 97.9 F Pulse Rate 72 91 H Respiratory Rate 18 18 Blood Pressure 169/86 H 156/81 H Pulse Oximetry 99 99 98 09/22/18 16:00 Temperature 97.4 F L Pulse Rate 87 Respiratory Rate 20 Blood Pressure 171/97 H Pulse Oximetry 99 Intake & Output 09/21/18 09/22/18 09/22/18 19:59 06:59 18:59 Intake Total 1940 / 1940 Output Total 600 / 600 Balance 1340 / 1340 Intake: IV 1000 / 1000 D5W/Normal Saline Inj 1,000 ML 1000 / 1000 @ 42 mls/hr IV.CONT .[id number] [facility] Rx#:[id number] Oral 940 / 940 Output: Urine 600 / 600 Other: # Voids 2 Date of Last Bowel Movement 09/21/18 Narrative: GENERAL: NAD, AAOx3 SKIN: Warm and dry. HEAD: Atraumatic. Normocephalic. EYES: Pupils equal and round. No scleral icterus. No injection or drainage. ENT: No nasal bleeding or discharge. Mucous membranes pink and moist. NECK: Trachea midline. No JVD. CARDIOVASCULAR: Irregularly irregular RESPIRATORY: No accessory muscle use. Clear to auscultation. Breath sounds equal bilaterally. GASTROINTESTINAL: Abdomen soft, non-tender, nondistended. Hepatic and splenic margins not palpable. MUSCULOSKELETAL: Extremities without clubbing, cyanosis, or edema. No obvious deformities. NEUROLOGICAL: Awake and alert. No obvious cranial nerve deficits. PSYCHIATRIC: Appropriate mood and affect; insight and judgment normal. <Carmela Menezes - Last Filed: 09/22/18 17:10> Vital signs: Vital Signs 09/21/18 23:06 09/22/18 04:00 09/22/18 07:52 Temperature 97.4 F L 97.9 F 97.4 F L Pulse Rate 85 76 72 Respiratory Rate 18 18 Blood Pressure 156/98 H 144/84 H 169/86 H Pulse Oximetry 100 98 99 09/22/18 11:25 09/22/18 11:54 09/22/18 16:00 Temperature 97.9 F 97.4 F L Pulse Rate 91 H 87 Respiratory Rate 18 20 Blood Pressure 156/81 H 171/97 H Pulse Oximetry 99 98 99 09/22/18 19:31 Temperature Pulse Rate 81 Respiratory Rate Blood Pressure Pulse Oximetry Intake & Output 09/22/18 09/22/18 09/23/18 06:59 18:59 06:59 Intake Total 1940 / 1940 Output Total 600 / 600 Balance 1340 / 1340 Intake: IV 1000 / 1000 D5W/Normal Saline Inj 1,000 ML 1000 / 1000 @ 42 mls/hr IV.CONT .[id number] [facility] Rx#:[id number] Oral 940 / 940 Output: Urine 600 / 600 Other: # Voids 2 Date of Last Bowel Movement 09/21/18 <Merissa Jacobs - Last Filed: 09/22/18 19:41> Results - Labs CBC & Chem 7: 09/21/18 11:00 09/22/18 09:00 Laboratory Results - last 24 hr 09/21/18 09/22/18 09/22/18 20:27 07:31 09:00 Sodium 141 Potassium 3.4 L Chloride 104 Carbon Dioxide 29.2 Anion Gap 8 BUN 12 Creatinine 1.23 Estimated GFR 59 L POC Glucose 219 H 169 H Random Glucose 203 H Calcium 8.7 09/22/18 09/22/18 11:51 16:38 Sodium Potassium Chloride Carbon Dioxide Anion Gap BUN Creatinine Estimated GFR POC Glucose 228 H 224 H Random Glucose Calcium <Carmela Menezes - Last Filed: 09/22/18 17:10> - Labs CBC & Chem 7: 09/21/18 11:00 09/22/18 09:00 Laboratory Results - last 24 hr 09/21/18 09/22/18 09/22/18 20:27 07:31 09:00 Sodium 141 Potassium 3.4 L Chloride 104 Carbon Dioxide 29.2 Anion Gap 8 BUN 12 Creatinine 1.23 Estimated GFR 59 L POC Glucose 219 H 169 H Random Glucose 203 H Calcium 8.7 09/22/18 09/22/18 11:51 16:38 Sodium Potassium Chloride Carbon Dioxide Anion Gap BUN Creatinine Estimated GFR POC Glucose 228 H 224 H Random Glucose Calcium <Merissa Jacobs - Last Filed: 09/22/18 19:41> Assessment and Plan (1) GI (gastrointestinal bleed) Status: Acute Code(s): K92.2 - Gastrointestinal hemorrhage, unspecified - Plan GI bleed /rectal bleeding- Pt cont. to have rectal bleeding. hgb yesterday 12.5, no labs today Last EGD done June 2018 revealed gastric ulcer with duodenal irritation. Patient on pantoprazole 40 mg p.o. daily. - atrial fibrillation/CVA/TIA. Eliquis on hold, cardiology on the case Plan - Clear liquid - EGD/colonoscopy tomorrow - Mag-citrate prep - NPO mn -Monitor for bleeding -Transfuse if needed -Continue PPI -Monitor hemoglobin and hematocrit -Supportive care -Further recommendations to follow This patient has been seen by myself and Dr. Jacobs and this note is written on her behalf <Carmela Menezes - Last Filed: 09/22/18 17:10> (1) GI (gastrointestinal bleed) Status: Acute Code(s): K92.2 - Gastrointestinal hemorrhage, unspecified - Attending Attestation seen, examined agree with above <Merissa Jacobs - Last Filed: 09/22/18 19:41>
[2018-09-22] MEDS: LORazepam 1 MG Tablet PO PRN (21:27)
[2018-09-22] MEDS: Temazepam 15 MG Capsule PO PRN (21:29)
[2018-09-23] MEDS: Levothyroxine 150 MCG Tablet PO SCH (06:17)
[2018-09-23 06:25] LABS: Baso % (Auto) 0.7 % (0.0-2.0); Eos # (Auto) 0.6 th/mm3 (0.0-0.4); Eos % (Auto) 12.3 % (0.0-4.0); Hematocrit 33.9 % (39.0-51.0); Hemoglobin 11.3 gm/dL (13.0-17.0); Lymph # (Auto) 1.3 th/mm3 (1.0-4.8); Lymph % (Auto) 27.9 % (9.0-44.0); Mean Corpuscular HGB Conc 33.5 % (32.0-36.0); Mean Corpuscular Hemoglobin 27.9 pg (27.0-34.0); Mean Corpuscular Volume 83.3 fL (80.0-100.0); Mean Platelet Volume 8.6 fL (7.0-11.0); Mono # (Auto) 0.3 th/mm3 (0.0-0.9); Mono % (Auto) 6.8 % (0.0-8.0); Neut # (Auto) 2.5 th/mm3 (1.8-7.7); Neut % (Auto) 52.3 % (16.0-70.0); Platelet Count 228 th/mm3 (150-450); Red Blood Count 4.07 mil/mm3 (4.50-5.90); Red Cell Distribution Width 14.9 % (11.6-17.2); White Blood Count 4.8 th/mm3 (4.0-11.0)
[2018-09-23 06:50] LABS: Calcium 8.8 mg/dL (8.5-10.1); Carbon Dioxide 24.8 meq/L (21.0-32.0); Potassium 3.3 meq/L (3.5-5.1)
[2018-09-23] MEDS ORDERED: Sod Phosphate/Sod Biphosphate (Adult) Enema 133 ML Bottle RECTAL ONE (07:00)
[2018-09-23] MEDS: LORazepam 1 MG Tablet PO PRN (07:02)
[2018-09-23] MEDS: Insulin NovoLOG Aspart Correctional Sugar Inj SQ SCH ×4 (07:39→23:19)
[2018-09-23] MEDS: Senna/Docusate Sodium 8.6/50 MG Tablet PO SCH ×2 (08:12→20:23)
[2018-09-23] MEDS ORDERED: Chlorhexidine Gluconate 2% 1 Pack (2 Cloths) TOPICAL ONE (08:25)
[2018-09-23] MEDS ORDERED: Metoprolol Tartrate 25 MG Tablet PO ONE (08:25)
[2018-09-23] MEDS ORDERED: Sodium Chlor 0.9% Inj 500 ML IV.SIG ONE (09:00)
--- NOTE | 2018-09-23 09:47 | GIPROC ---
[facility] [address] [facility]. [facility], [address] COLONOSCOPY PROCEDURE REPORT EXAM DATE: 09/23/2018 PATIENT NAME: Sherman Guerrero MR #: [id number] BIRTHDATE: 1950 ENDOSCOPIST: Merissa Jacobs MD ORDER #: [id number] SUPERVISOR WATERWORKS: Nataliia Chambers Pena, Gabriela, and Felisha Nichols STATUS: inpatient INDICATIONS: The patient is a 68 yr old male here for a colonoscopy due to anemia PROCEDURE PERFORMED: Colonoscopy with polypectomy MEDICATIONS: Per Anesthesia and None. PREP QUALITY: good PREP TYPE:Other: ESTIMATED BLOOD LOSS: None CONSENT: The patient understands the risks and benefits of the procedure and understands that these risks include, but are not limited to: sedation, allergic reaction, infection, perforation and/or bleeding. Alternative means of evaluation and treatment include, among others: physical exam, x-rays, and/or surgical intervention. The patient elects to proceed with this endoscopic procedure. medical equipment was checked for proper function. Hand hygiene and appropriate measures for infection prevention was taken. After the risks, benefits and alternatives of the procedure were thoroughly explained, Informed consent was verified, confirmed and timeout was successfully executed by the treatment team. A digital exam revealed internal hemorrhoids The Pentax EC-[id number] endoscope was introduced through the anus and advanced to the cecum, which was identified by both the appendix and ileocecal valve. The instrument was then slowly withdrawn as the colon was fully examined. COLON FINDINGS: Polyp sessile ascending colon-1 cm-hot snare polypectomy with complete removal diverticulosis sigmoid,descending internal hemorrhoids lipoma transverse-biopsy. Retroflexed views revealed internal hemorrhoids and Retroflexed views revealed small internal hemorrhoids The scope was then completely withdrawn from the patient and the procedure terminated. PROCEDURE WITHDRAWAL TIME:6minutes ADVERSE EVENTS: There were no complications. IMPRESSIONS: 1. Polyp sessile ascending colon-1 cm-hot snare polypectomy with complete removal diverticulosis sigmoid,descending internal hemorrhoids lipoma transverse-biopsy 2. Retroflexed views revealed internal hemorrhoids 3. Retroflexed views revealed small internal hemorrhoids 4. Revealed internal hemorrhoids RECOMMENDATIONS: 1. Await biopsy results. Biopsy results will not be ready for 7-10 days. If you don't hear from us in two weeks, call our office for results. 2. Benefiber 2 tsp daily 3. Probiotics from any [employer] or health food store 4. Yearly rectal exams 5. Ok to start anticoagulation ok to dc home from gi point capsule endoscopy op if gi w-up negative consider hematology consult RECALL: Return 3 years Colonoscopy Merissa Jacobs MD eSigned: Merissa Jacobs MD 09/23/2018 9:47 AM cc: PATIENT NAME: Sherman Guerrero MR#: [id number]
--- NOTE | 2018-09-23 09:50 | GIPROC ---
[facility] [address] [facility]. [facility], [address] EGD PROCEDURE REPORT EXAM DATE: 09/23/2018 PATIENT NAME: Sherman Guerrero MR #: [id number] BIRTHDATE: 1950 ATTENDING: Merissa Jacobs MD ORDER #: [id number] PUBLIC RELATIONS ACCOUNT EXECUTIVE: Katie Beverly Stienbarger, Terrie, and Nataliia Chambers STATUS: inpatient INDICATIONS: The patient is a 68 yr old male here for an EGD due to anemia gi bleeding PROCEDURE PERFORMED: EGD w/ biopsy MEDICATIONS: Per Anesthesia and None. TOPICAL ANESTHETIC: none CONSENT: The patient understands the risks and benefits of the procedure and understands that these risks include, but are not limited to: sedation, allergic reaction, infection, perforation and/or bleeding. Alternative means of evaluation and treatment include, among others: physical exam, x-rays, and/or surgical intervention. The patient elects to proceed with this endoscopic procedure. medical equipment was checked for proper function. Hand hygiene and appropriate measures for infection prevention was taken. After the risks, benefits and alternatives of the procedure were thoroughly explained, Informed consent was verified, confirmed and timeout was successfully executed by the treatment team. The patient was anesthetized with topical anesthesia and the EC-[id number] (Pedi C) endoscope was introduced through the mouth and advanced to the second portion of the duodenum. Retroflexed views revealed a hiatal hernia The gastroscope was then slowly withdrawn and removed. Duodenum normal-biopsy gastritis antrum-biopsy irregular z line-biopsy. ADVERSE EVENTS: There were no complications. IMPRESSIONS: 1. Duodenum normal-biopsy gastritis antrum-biopsy irregular z line-biopsy 2. Retroflexed views revealed a hiatal hernia RECOMMENDATIONS: 1. Await biopsy results. Biopsy results will not be ready for 7-10 days. If you don't hear from us in two weeks, call our office for biopsy results. 2. Anti-reflux regimen 3. Continue PPI 4. Avoid NSAIDS PATIENT CONDITION: stable DISPOSITION: Inpatient REPEAT EXAM: Return 3 years EGD Merissa Jacobs MD eSigned: Merissa Jacobs MD 09/23/2018 9:49 AM cc: PATIENT NAME: Sherman Guerrero MR#: [id number]
[2018-09-23] MEDS: Dextrose 5%/NaCl 0.9% Inj 1,000 ML IV.CONT SCH (12:28)
--- NOTE | 2018-09-23 16:53 | P.PNIM ---
Subjective Interval history: Pt had EGD/colonoscopy today. no noted source of bleeding found. He had not had any further bleeding No new neurological deficits BP has been fairly stable Physical Exam Vital signs: Last Vital Signs Temp 97.4 F L 09/23/18 12:33 Pulse 84 09/23/18 12:33 Resp 16 09/23/18 12:33 BP 155/90 H 09/23/18 12:33 Pulse Ox 97 09/23/18 12:33 Narrative: nad no labored breathing no dysarthria or facial droop heart irreg lung cta abd s/nt ext no edema Results Labs CBC & Chem 7: 09/23/18 05:31 09/23/18 05:31 Assessment and Plan Assessment (1) GI (gastrointestinal bleed): Code(s): K92.2 - Gastrointestinal hemorrhage, unspecified Status: Acute (2) Transient cerebral ischemia: Code(s): G45.9 - Transient cerebral ischemic attack, unspecified Status: Acute Plan: TIA, Hx of CVA - Pt is a 68 y/o WM with atrial fibrillation s/p cardioversion x 2, diabetes, hypertension, hypothyroidism, and prior history of CVA in 10/2017 and is on Eliquis and was recently admitted to [facility] [place] in 06/2018 with similar complaints at that time and seen by Neurology and ASA 81mg daily was added to his regimen which he has reportedly been compliant with. - He presented to the ED on 09/18/18 with a complaints of headache that began two days ago (frontal) and yesterday started having increased weakness on the right side and some speech difficulties. - Neurology has been consulted - Head CT (09/18/18) - No acute abnormality, chronic white matter ischemic changes. Previous Head CT (06/26/18) - Mild to moderate periventricular and subcortical white matter small vessel ischemic changes bilaterally - Old lacunar infarcts involving the left lopes radiata and basal ganglia - Old lacunar infarct involving the right cesar - Mild stable cerebral atrophy, but no acute infarct, acute hemorrhage, midline shift or extra-axial bleed. - Head CTA (06/26/18) - Dense atherosclerotic calcification of the distal internal carotid arteries at skull base - Otherwise, intracranial vessels are all patent without embolic event to explain current clinical symptoms. - Neck CTA (06/26/18) - The proximal left internal carotid artery there is moderate plaque formation with 40-50% stenosis, not hemodynamically significant - The proximal right internal carotid artery there is mild plaque formation with less than 30% stenosis - Both vertebral arteries are patent, dominant right. - Pt is again refusing an MRI of the brain due to severe claustrophobia. He states that the only time has has been able to tolerating having an MRI performed he had to be sedated with Versed. - Pt noted to be in A. fib, rate controlled. - Pt is on rosuvastatin, - PT/OT/ST evaluation - Telemetry - Neuro checks - Cont. Eliquis and ASA - neuro consult to cardiology...ALEX today await neuro/cards reccs for any change to his anticoagulation regimen ?dc home later today if alex negative - Supportive care - DVT prophylaxis with SCDs and Eliquis MRI brain showed microvascular dz, old lacunar cva' and no acute mass/hemorrhage or cva. repeat cta neck hemodynamically insig. plaque. PT today. dc when ok with neurology. await any recc. changes for cva prevention. Atrial fibrillation - As above. - Rate controlled. - Eliquis resumed. Diabetes mellitus Diabetic nephropathy - Hgb A1c 6/7% on 06/27/18. - NovoLog sliding scale insulin. - May need to add Levemir depending on pts next few BS readings. - Accu checks Hypertension - Pt currently being allowed permissive hypertension with parameters. - BP stable for now Postlaminectomy syndrome - Continue home medication Hypothyroidism - Continue medication Hyperlipidemia - COnt. statin Anxiety (3) CVA (cerebral vascular accident): Code(s): I63.9 - Cerebral infarction, unspecified Status: Suspected (4) HTN (hypertension): Code(s): I10 - Essential (primary) hypertension Status: Chronic (5) Diabetes: Code(s): E11.9 - Type 2 diabetes mellitus without complications Status: Chronic (6) A-fib: Code(s): I48.91 - Unspecified atrial fibrillation Status: Chronic Plan TIA Hx of CVA - Pt is a 68 y/o WM with atrial fibrillation s/p cardioversion x 2, diabetes, hypertension, hypothyroidism, and prior history of CVA in 10/2017 and is on Eliquis and was recently admitted to [facility] [place] in 06/2018 with similar complaints at that time and seen by Neurology and ASA 81mg daily was added to his regimen which he has reportedly been compliant with. - He presented to the ED on 09/18/18 with a complaints of headache that began two days ago (frontal) and yesterday started having increased weakness on the right side and some speech difficulties. - Neurology has been consulted - Head CT (09/18/18) - No acute abnormality, chronic white matter ischemic changes. - Previous Head CT (06/26/18) - Mild to moderate periventricular and subcortical white matter small vessel ischemic changes bilaterally - Old lacunar infarcts involving the left lopes radiata and basal ganglia - Old lacunar infarct involving the right cesar - Mild stable cerebral atrophy, but no acute infarct, acute hemorrhage, midline shift or extra-axial bleed. - Head CTA (06/26/18) - Dense atherosclerotic calcification of the distal internal carotid arteries at skull base - Otherwise, intracranial vessels are all patent without embolic event to explain current clinical symptoms. - Neck CTA (06/26/18) - The proximal left internal carotid artery there is moderate plaque formation with 40-50% stenosis, not hemodynamically significant - The proximal right internal carotid artery there is mild plaque formation with less than 30% stenosis - Both vertebral arteries are patent, dominant right. - MRI brain showed microvascular dz, old lacunar CVA and no acute mass/ hemorrhage or cva. - Repeat CTA neck with hemodynamically insignificant plaque. - Pt noted to be in A. fib, rate controlled. - Pt is on rosuvastatin - PT/OT/ST - Telemetry - Neuro checks - Neuro consulted Cardiology for ALEX. This was performed on 09/20 --> - The left ventricular systolic function is grossly normal on limited imaging. Normal left atrial appendage size with no evidence of thrombus formation. - Normal atrial septal thickness without atrial level shunting by limited color doppler interrogation. - Trace mitral valve regurgitation. 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 - Discussed alternate anticoagulation regiment upon dc and pt agrees. He understands no data to show any better outcome of stroke prevention. He is also considering the Watchman procedure for A. fib. GIB - Pt developed GIB on 09/20/18. Eliquis and asa held - GI consulted. - Pt underwent EGD/colonoscopy on 09/23/18 --> Gastritis antrum, Irregular Z-line , hiatal hernia, sessile polyp in the ascending colon s/p removal, lipoma in the transverse, diverticulosis in the sigmoid and descending, and internal hemorrhoids. - GI recommending outpt Capsule endoscopy Atrial fibrillation - See above Diabetes mellitus Diabetic nephropathy - Hgb A1c 6/7% on 06/27/18. - NovoLog sliding scale insulin. - Accu checks Hypertension - Pt has been off his home meds to allow for permissive hypertension with parameters. - BP stable for now Postlaminectomy syndrome - Continue home medication Hypothyroidism - Continue medication Hyperlipidemia - COnt. statin Anxiety - Progress Note: Quality VTE Deep Vein Thrombosis/Pulmonary Embolism Present on Admission: No _ (1) Diabetes Qualifiers: Chronic kidney disease stage: Diabetes mellitus complication detail: Diabetes mellitus complication status: Diabetes mellitus chcf insulin use : Diabetes mellitus macular edema: Diabetes mellitus type: Diabetic retinopathy severity: Laterality: Proliferative retinopathy type: (2) GI (gastrointestinal bleed) Qualifiers: GI bleed type/associated pathology: Gastritis type: (3) A-fib Qualifiers: Atrial fibrillation type: (4) Transient cerebral ischemia Qualifiers: Transient cerebral ischemia type: unspecified Qualified Code(s): G45.9 - Transient cerebral ischemic attack, unspecified (5) HTN (hypertension) Qualifiers: Hypertension type: (6) CVA (cerebral vascular accident) Qualifiers: CVA mechanism: Laterality of affected vessel: Precerebral and cerebral artery:
[2018-09-23] MEDS: Temazepam 15 MG Capsule PO PRN (23:18)
[2018-09-24] MEDS: Levothyroxine 150 MCG Tablet PO SCH (06:41)
[2018-09-24 08:15] LABS: Baso # (Auto) 0.1 th/mm3 (0.0-0.2); Baso % (Auto) 1.1 % (0.0-2.0); Eos # (Auto) 0.5 th/mm3 (0.0-0.4); Eos % (Auto) 8.8 % (0.0-4.0); Lymph % (Auto) 16.7 % (9.0-44.0); Mean Corpuscular HGB Conc 33.3 % (32.0-36.0); Mean Corpuscular Hemoglobin 27.9 pg (27.0-34.0); Mean Corpuscular Volume 83.5 fL (80.0-100.0); Mono # (Auto) 0.4 th/mm3 (0.0-0.9); Mono % (Auto) 7.2 % (0.0-8.0); Neut # (Auto) 3.9 th/mm3 (1.8-7.7); Neut % (Auto) 66.2 % (16.0-70.0); Platelet Count 227 th/mm3 (150-450); Red Blood Count 3.59 mil/mm3 (4.50-5.90); Red Cell Distribution Width 15.2 % (11.6-17.2); White Blood Count 5.8 th/mm3 (4.0-11.0)
[2018-09-24] MEDS ORDERED: amLODIPine 5 MG Tablet PO SCH ×2 (09:00)
[2018-09-24] MEDS ORDERED: Rivaroxaban 20 MG Tablet PO SCH (09:00)
[2018-09-24] MEDS: Insulin NovoLOG Aspart Correctional Sugar Inj SQ SCH ×3 (09:49→17:49)
[2018-09-24] MEDS: Senna/Docusate Sodium 8.6/50 MG Tablet PO SCH (09:51)
[2018-09-24 13:34] LABS: Hematocrit 33.1 % (39.0-51.0); Hemoglobin 11.1 gm/dL (13.0-17.0)
[2018-09-24] MEDS: Dextrose 5%/NaCl 0.9% Inj 1,000 ML IV.CONT SCH (15:46)
--- NOTE | 2018-09-24 17:24 | P.DS ---
DS: Providers Date of admission: 09/20/18 15:12 Primary care physician: No Primary Care Physician Consults: 09/18/18 08:39 Consult to Neurology Routine Consulting Provider: Allen Ibanez Reason for Consultation: TIA vs. stroke, recurrent symptoms on Eliquis and ASA Notified:: Office Spoke with:: kristel Date Notified:: 09/18/18 Time Notified:: 08:44 Ordering Provider: TARIK 09/19/18 16:33 Consult to Cardiology Routine Consulting Provider: Sánchez Smallwood Does the patient have a Shotweld Operator who follows them?: No Preferred Head Librarian:: [employer] Consultant Physician Reason for Consultation: Cardiology for TIA on eliquis anticoagulants? Notified:: Office Spoke with:: Fidelina Date Notified:: 09/19/18 Time Notified:: 16:39 Comments:: Per Jeannie ( call center ) patient known to Dr Smallwood, change to his list 09/19/18 1743 hrs - ML Ordering Provider: KARINA 09/20/18 12:22 Consult to Gastroenterology Routine Consulting Provider: Jose Tenorio Reason for Consultation: GI bleeding, acute onset rectal bleeding today Notified:: Office Spoke with:: wolf Date Notified:: 09/20/18 Time Notified:: 12:29 Ordering Provider: TARIK DS: Diagnosis Discharge Diagnosis (1) GI (gastrointestinal bleed): Status: Acute (2) Transient cerebral ischemia: Status: Acute (3) CVA (cerebral vascular accident): Status: Suspected (4) HTN (hypertension): Status: Chronic (5) Diabetes: Status: Chronic (6) A-fib: Status: Chronic DS: Summary Hx of CVA - Pt is a 68 y/o WM with atrial fibrillation s/p cardioversion x 2, diabetes, hypertension, hypothyroidism, and prior history of CVA in 10/2017 and is on Eliquis and was recently admitted to [facility] [place] in 06/2018 with similar complaints at that time and seen by Neurology and ASA 81mg daily was added to his regimen which he has reportedly been compliant with. - He presented to the ED on 09/18/18 with a complaints of headache that began two days ago (frontal) and yesterday started having increased weakness on the right side and some speech difficulties. - Neurology has been consulted - Head CT (09/18/18) - No acute abnormality, chronic white matter ischemic changes. Previous Head CT (06/26/18) - Mild to moderate periventricular and subcortical white matter small vessel ischemic changes bilaterally - Old lacunar infarcts involving the left lopes radiata and basal ganglia - Old lacunar infarct involving the right cesar - Mild stable cerebral atrophy, but no acute infarct, acute hemorrhage, midline shift or extra-axial bleed. - Head CTA (06/26/18) - Dense atherosclerotic calcification of the distal internal carotid arteries at skull base - Otherwise, intracranial vessels are all patent without embolic event to explain current clinical symptoms. - Neck CTA (06/26/18) - The proximal left internal carotid artery there is moderate plaque formation with 40-50% stenosis, not hemodynamically significant - The proximal right internal carotid artery there is mild plaque formation with less than 30% stenosis - Both vertebral arteries are patent, dominant right. - Pt is again refusing an MRI of the brain due to severe claustrophobia. He states that the only time has has been able to tolerating having an MRI performed he had to be sedated with Versed. - Pt noted to be in A. fib, rate controlled. - Pt is on rosuvastatin, - PT/OT/ST evaluation - Telemetry - Neuro checks - Cont. Eliquis and ASA - neuro consult to cardiology...ALEX today await neuro/cards reccs for any change to his anticoagulation regimen ?dc home later today if alex negative - Supportive care - DVT prophylaxis with SCDs and Eliquis MRI brain showed microvascular dz, old lacunar cva' and no acute mass/hemorrhage or cva. repeat cta neck hemodynamically insig. plaque. PT today. dc when ok with neurology. await any recc. changes for cva prevention. Atrial fibrillation - As above. - Rate controlled. - Eliquis resumed. Time Spent with Patient Total time spent providing and/or coordinating discharge services: Quality: Stroke Last date observed well: 09/16/18 Symptom Onset Unknown: No Quality: VTE Deep Vein Thrombosis/Pulmonary Embolism Present on Admission: No DS: Data Pending studies at discharge: Pending at discharge 09/23/18 12:13 Surgical [PTH] Routine Labs on day of discharge: Labs from last 24 hours 09/24/18 09/24/18 09/24/18 13:29 12:59 08:24 WBC RBC Hgb 11.1 L Hct 33.1 L MCV MCH MCHC RDW Plt Count MPV Neut % (Auto) Lymph % (Auto) [place] % (Auto) Eos % (Auto) Baso % (Auto) Neut # (Auto) Lymph # (Auto) [place] # (Auto) Eos # (Auto) Baso # (Auto) WBC Differential Differential Comment POC Glucose 227 H 162 H 09/24/18 09/23/18 07:50 20:24 WBC 5.8 RBC 3.59 L Hgb 10.0 L Hct 30.0 L MCV 83.5 MCH 27.9 MCHC 33.3 RDW 15.2 Plt Count 227 MPV 8.0 Neut % (Auto) 66.2 Lymph % (Auto) 16.7 [place] % (Auto) 7.2 Eos % (Auto) 8.8 H Baso % (Auto) 1.1 Neut # (Auto) 3.9 Lymph # (Auto) 1.0 [place] # (Auto) 0.4 Eos # (Auto) 0.5 H Baso # (Auto) 0.1 WBC Differential . Differential Comment Auto diff final POC Glucose 227 H Impressions Carotid Doppler Study 09/18/18 00:00 CONCLUSION: Abnormal right internal carotid flow and ratios, borderline significant. CT angiography is suggested. Head MRI 09/18/18 00:00 CONCLUSION: 1. No acute hemorrhage, mass or infarction. 2. Old lacunar infarcts. 3. Moderate atrophy and chronic small vessel ischemic change. Neck CTA 09/18/18 00:00 CONCLUSION: 1. At the left proximal internal carotid artery there is moderate plaque formation with an approximately 50% stenosis, probably not hemodynamically significant. 2. Mild to moderate plaque at the proximal right internal carotid artery with less than 30% stenosis. 3. Both vertebral arteries are patent, dominant on the right. 4. Overall no significant change compared with June 26, 2018. Chest X-Ray 09/18/18 02:04 CONCLUSION: No acute cardiopulmonary disease demonstrated. Very mild left base scarring again seen. Head CT 09/18/18 02:04 CONCLUSION: 1. No acute intracranial abnormality demonstrated. 2. Chronic white matter changes. . Discharge Plan Physicians Team Primary Care Provider: Primary Care Physici,No Attending Provider: Triston Shore Other Providers: Allen Ibanez ; Sánchez Smallwood ; Jona,Jose E Rxs /Orders / Referrals /Forms Prescriptions: No Action apixaban [Eliquis] 5 mg Tablet 5 mg PO BID RF: 0 fluticasone [Allergy Relief (fluticasone)] 50 mcg/actuation [place],Suspension 2 spray INTRANASAL DAILY RF: 0 levothyroxine 150 mcg Tablet 150 mcg PO DAILY RF: 0 tramadol 50 mg Tablet 50 mg PO Q6H PRN (Reason: Back Pain) RF: 0 insulin degludec [Tresiba FlexTouch U-100] 100 unit/mL (3 mL) Insulin Pen 30 unit SUB-Q HS RF: 0 liraglutide [Victoza 3-Darron] 0.6 mg/0.1 mL (18 mg/3 mL) Pen Injector 1.2 mg SUB-Q DAILY RF: 0 aspirin 81 mg Tablet,Delayed Release (Dr/Ec) 81 mg PO DAILY RF: 0 atenolol 25 mg Tablet 25 mg PO DAILY Qty: 0 RF: 0 amlodipine 5 mg Tablet 5 mg PO DAILY Qty: 0 RF: 0 pantoprazole [Protonix] 40 mg Tablet,Delayed Release (Dr/Ec) 40 mg PO DAILY RF: 0 rosuvastatin 5 mg Tablet 5 mg PO DAILY RF: 0 Referrals: Primary Care Physici,No [Primary Care Provider] - See Instructions Status ED Status: Left Department
== END 2018-09-24 17:51 | disposition home or self-care (01) ==
LOC: NEPC 01:29 → NEDA 04:04 → INTOOBSV 04:04 → NEDA 12:06 → N05 12:11
PROVIDERS: ADMIT Hospitalist; ATTEND Hospitalist
PROC: PANENDO (2018-09-23 09:12)
DX: M19.90 Unspecified osteoarthritis, unspecified site; Z79.82 Long term (current) use of aspirin; K21.9 Gastro-esophageal reflux disease without esophagitis; K44.9 Diaphragmatic hernia without obstruction or gangrene; E78.5 Hyperlipidemia, unspecified; E11.3519 Type 2 diabetes mellitus with proliferative diabetic retinopathy with macular edema, unspecified eye; D17.9 Benign lipomatous neoplasm, unspecified; K57.30 Diverticulosis of large intestine without perforation or abscess without bleeding; M96.1 Postlaminectomy syndrome, not elsewhere classified; E11.40 Type 2 diabetes mellitus with diabetic neuropathy, unspecified; I65.22 Occlusion and stenosis of left carotid artery; E11.21 Type 2 diabetes mellitus with diabetic nephropathy; E11.22 Type 2 diabetes mellitus with diabetic chronic kidney disease; K52.9 Noninfective gastroenteritis and colitis, unspecified; I48.2 Chronic atrial fibrillation; Z79.01 Long term (current) use of anticoagulants; K64.8 Other hemorrhoids; J44.9 Chronic obstructive pulmonary disease, unspecified; Z87.11 Personal history of peptic ulcer disease; I12.9 Hypertensive chronic kidney disease with stage 1 through stage 4 chronic kidney disease, or unspecified chronic kidney disease; Z79.4 Long term (current) use of insulin; I63.9 Cerebral infarction, unspecified; K29.70 Gastritis, unspecified, without bleeding; E66.9 Obesity, unspecified; N18.9 Chronic kidney disease, unspecified; R29.700 NIHSS score 0; Z86.73 Personal history of transient ischemic attack (TIA), and cerebral infarction without residual deficits; Z79.899 Other long term (current) drug therapy; N40.0 Benign prostatic hyperplasia without lower urinary tract symptoms; K25.4 Chronic or unspecified gastric ulcer with hemorrhage; F40.240 Claustrophobia; L40.9 Psoriasis, unspecified; Z68.44 Body mass index [BMI] 60.0-69.9, adult; D12.2 Benign neoplasm of ascending colon; E89.0 Postprocedural hypothyroidism